=== PATIENT | female | born 1955 | race Caucasian/White ===

== ENCOUNTER → 2017-03-13 | Outpatient (CLI) | payer OTHER ==
[2017-03-13 13:30] LABS: BASOPHILS % (AUTO) 0.6 % (0.2-1.0); EOSINOPHILS % (AUTO) 0.8 % (0.9-2.9); HEMATOCRIT 38.1 % (36.0-47.0); HEMOGLOBIN 12.6 g/dL (12.0-16.0); LYMPHOCYTES # (AUTO) 1.3 X10^3/uL (1.3-2.9); LYMPHOCYTES % (AUTO) 21.3 % (21.0-51.0); MEAN CORPUSCULAR HEMOGLOBIN 29.7 pg (27.0-34.0); MEAN CORPUSCULAR HGB CONC 33.2 g/dL (33.0-35.0); MEAN CORPUSCULAR VOLUME 89.3 fL (80.0-100.0); MEAN PLATELET VOLUME 9.1 fL (7.4-11.0); MONOCYTES # (AUTO) 0.6 x10^3/uL (0.3-0.8); MONOCYTES % (AUTO) 9.8 % (0.0-13.0); NEUTROPHILS % (AUTO) 67.5 % (42.0-75.0); PLATELET COUNT 124 X10^3/uL (150.0-450.0); RED BLOOD COUNT 4.26 X10^6/uL (3.5-5.4); RED CELL DISTRIBUTION WIDTH 12.6 % (11.6-16.5); WHITE BLOOD COUNT 5.9 X10^3/uL (3.6-10.0)
[2017-03-13 14:23] LABS: ALANINE AMINOTRANSFERASE 64 Units/L (12-78); ALBUMIN 2.8 g/dL (3.4-5.0); ALKALINE PHOSPHATASE 127 Units/L (46-116); ASPARTATE AMINO TRANSFERASE 63 Units/L (15-37); BILIRUBIN,DIRECT 0.12 mg/dL (0-0.2); BLOOD UREA NITROGEN 22 mg/dL (7-18); CARBON DIOXIDE 31.8 mmol/L (21-32); CHLORIDE 100 mmol/L (98-107); COR NA(FOR HYPERGLY) 141 mmol/L (136-145); CREATININE 1.11 mg/dL (0.55-1.02); SODIUM 136 mmol/L (136-145); TOTAL PROTEIN 7.9 g/dL (6.4-8.2); eGFR BLACK RACES > 60 (>60); eGFR NON BLACK RACES 53 (>60)
== END ==
LOC: LAB 13:06
PROVIDERS: ATTEND Orthopaedic Surgery
DX: M51.27 Other intervertebral disc displacement, lumbosacral region (principal); M54.16 Radiculopathy, lumbar region
CPT/HCPCS: 36415; 80048; 80076; 85025

== ENCOUNTER 2020-03-12 09:18 | Inpatient (IN) ==
[2020-03-12 09:41] LABS: ABG BASE EXCESS -15.5 mmol/L (-2.0-2.0)
[2020-03-12 09:42] VITALS: BMI 48.6
[2020-03-12 09:42] LABS: ABG HCO3 12.1 mmol/L (22-26)
[2020-03-12 09:43] LABS: ABG ALLEN TEST POS
[2020-03-12] MEDS ORDERED: DECADRON INJ IVP ONE (09:43)
[2020-03-12] MEDS ORDERED: DECADRON INJ ONE (09:50)
[2020-03-12 10:00] LABS: BILIRUBIN,URINE NEGATIVE (NEGATIVE); BLOOD/HEMOGLOBIN,URINE 2+ (NEGATIVE); GLUCOSE, URINE NEGATIVE (NEGATIVE); KETONES,URINE NEGATIVE (NEGATIVE); LEUKOCYTE ESTERASE ,URINE NEGATIVE (NEGATIVE); NITRITES,URINE NEGATIVE (NEGATIVE); PROTEIN,URINE 4+ (NEGATIVE); UROBILINOGEN,URINE NORMAL (NORMAL)
[2020-03-12] MEDS ORDERED: NS 1000 ML 1,000 ML IV SCH (10:00)
[2020-03-12 10:02] LABS: BASOPHILS % (AUTO) 0.2 % (0.2-1.0); HEMATOCRIT 37.4 % (36.0-47.0); HEMOGLOBIN 11.9 g/dL (12.0-16.0); LYMPHOCYTES # (AUTO) 0.8 X10^3/uL (1.3-2.9); LYMPHOCYTES % (AUTO) 7.5 % (21.0-51.0); MEAN CORPUSCULAR HEMOGLOBIN 27.5 pg (27.0-34.0); MEAN CORPUSCULAR HGB CONC 31.8 g/dL (33.0-35.0); MEAN CORPUSCULAR VOLUME 86.6 fL (80.0-100.0); MEAN PLATELET VOLUME 9.1 fL (7.4-11.0); MONOCYTES # (AUTO) 0.7 x10^3/uL (0.3-0.8); MONOCYTES % (AUTO) 6.3 % (0.0-13.0); NEUTROPHILS # (AUTO) 9.2 x10^3/uL (2.2-4.8); PLATELET COUNT 181 X10^3/uL (150.0-450.0); RED BLOOD COUNT 4.32 X10^6/uL (3.5-5.4); RED CELL DISTRIBUTION WIDTH 15.7 % (11.6-16.5); WHITE BLOOD COUNT 10.7 X10^3/uL (3.6-10.0)
--- NOTE | 2020-03-12 10:07 | DR.GENAD ---
HPI Time Seen Time Seen by Provider: 03/12/20 09:43 PCP Primary Care Physician: ZOE HPI Comment HPI Comment: arrived via ems after being found unresponsive w sats 20s in field. gradually improved w NRB. unable to tolerate bipap per EMS. no pos covid test. obv resp distress. Complaint/Symptoms Chief Complaint Doctors Comments: ems arrival Chief Complaint:: PT. C/O SHORTNESS OF BREATH. EMS STATES UPON THEIR ARRIVAL, PT. WAS FOUND UNRESPONSIVE IN THE RECLINER. PT. NOTED TO HAVE SHALLOW RESPIRATIONS WITH DIMINISHED BREATH SOUNDS WELL WHEEZING. INITIAL O2 SAT WAS IN THE 20'S PER EMS. PT. WAS COLD TO TOUCH AND CLAMMY. PT. WAS PLACED ON NRB @ 100%. EN ROUTE TO THE ER, PT. BECAME MORE ALERT. O2 SAT UPON ARRIVAL TO THE ER WAS 56% ON NRB @ 100%. PT. STATES SHE BECAME SICK ON THURSDAY WITH SOB. SYMTPOMS HAVE WORSENED. COVID-19 Coronavirus risk:travel/contact w/high risk person: No Has patient experienced Coronavirus symptoms: Yes Coronavirus symptoms experienced: Shortness of Breath Nurses notes reviewed Nurses Notes Review: Yes Source History Provided: Patient and EMS Mode of Arrival Mode of Arrival: EMS Timing Onset of Chief Complaint: 03/08/20 Came on: Gradually Duration Duration: Constant Duration: Days PMH PMH Past Medical History: Yes Past Medical History: Diabetes Past Surgical History: Yes Surgical History: Unknown Family History History of Family Medical Conditions: Yes Family Medical History: Diabetes Mellitus Social History Does patient currently use any type of tobacco product: No Have you used tobacco products in the last 12 months: No Type of Tobacco Use: None Does any household member use tobacco: No Alcohol Use: None Do you use any recreational Drugs:: No Lives With: Spouse Lives Where: Home Travel Risk Coronavirus risk:travel/contact w/high risk person: No Has patient experienced Coronavirus symptoms: Yes Coronavirus symptoms experienced: Shortness of Breath Infectious screening In the last 2 months have you had wt loss of >10#?: NO Have you had fever, night sweats or hemotysis?: No Have you traveled outside the country in the last 6 months?: No Isolation: Droplet ROS Review of Systems Constitutional: Other (unable due to severity) PE Vital Signs Vitals: Temperature 98.6 F Pulse Rate 72 Respiratory Rate 21 Blood Pressure 149/82 O2 Sat by Pulse Oximetry 90 General Limitations: Altered Mental Status General Appearance: Lethargic, Obtunded and In Distress (mod- severe) Head Head Exam: Normal Inspection Eyes Eye exam: Normal Appearance ENT ENT Exam: Normal Exam and Mucous Membranes Dry External Ear Exam: Normal External Inspection Nose Exam: Normal Nose Exam Mouth Exam: Normal Inspection Throat Exam: Normal Inspection Neck Neck Exam: Normal Inspection Respiratory Respiratory Exam: Normal Lung Sounds Bilat Cardiovascular Cardiovascular Exam: Normal Rhythm, Tachycardia and Normal Heart Sounds Abdominal Exam Abdominal Exam: Normal Inspection, Normal Bowel Sounds and Soft; negative Distention, Tenderness, Guarding and Dimnished Bowel Sounds Extremities Extremities Exam: Normal Inspection Back Back Exam: Normal Inspection Neurologic Neurological Exam: negative Alert, Oriented X3 and Motor Sensory Deficit Skin Skin Exam: Warm and Dry COURSE Treatment Treatment: decadron in ED> aggressive resp interventions w finally Bipap in ED. Consultation Consultation Comments: arranged admit to Dr Rain. concerned re poor prognosis ROR Labs Reviewed Result Diagrams: 03/12/20 09:45 03/12/20 09:45 Laboratory: WBC 10.7 X10^3/uL (3.6-10.0) H 03/12/20 09:45 RBC 4.32 X10^6/uL (3.5-5.4) 03/12/20 09:45 Hgb 11.9 g/dL (12.0-16.0) L 03/12/20 09:45 Hct 37.4 % (36.0-47.0) 03/12/20 09:45 MCV 86.6 fL (80.0-100.0) 03/12/20 09:45 MCH 27.5 pg (27.0-34.0) 03/12/20 09:45 MCHC 31.8 g/dL (33.0-35.0) L 03/12/20 09:45 RDW 15.7 % (11.6-16.5) 03/12/20 09:45 Plt Count 181 X10^3/uL (150.0-450.0) 03/12/20 09:45 MPV 9.1 fL (7.4-11.0) 03/12/20 09:45 Neut % (Auto) 86.0 % (42.0-75.0) H 03/12/20 09:45 Lymph % (Auto) 7.5 % (21.0-51.0) L 03/12/20 09:45 [place] % (Auto) 6.3 % (0.0-13.0) 03/12/20 09:45 Eos % (Auto) 0.0 % (0.9-2.9) L 03/12/20 09:45 Baso % (Auto) 0.2 % (0.2-1.0) 03/12/20 09:45 Neut # (Auto) 9.2 x10^3/uL (2.2-4.8) H 03/12/20 09:45 Lymph # (Auto) 0.8 X10^3/uL (1.3-2.9) L 03/12/20 09:45 [place] # (Auto) 0.7 x10^3/uL (0.3-0.8) 03/12/20 09:45 Eos # (Auto) 0.0 x10^3/uL (0.0-0.2) 03/12/20 09:45 Baso # (Auto) 0.0 X10^3/uL (0.0-0.1) 03/12/20 09:45 Absolute Nucleated RBC 0.1 /100WBC 03/12/20 09:45 ESR 89 MM/HOUR (0-20) H 03/12/20 09:45 PT 12.5 SECONDS (11.8-14.3) 03/12/20 09:45 INR Target Range - 03/12/20 09:45 INR 0.96 (0.8-1.3) 03/12/20 09:45 APTT 27.8 SECONDS (22.9-36.5) 03/12/20 09:45 PTT Comment - 03/12/20 09:45 D-Dimer 1.84 ug/ml (0.0-0.57) H* 03/12/20 09:45 Sample Site Rrad 03/12/20 09:35 ABG pH 7.160 (7.35-7.45) L* 03/12/20 09:35 ABG pCO2 34.0 mmHg (35.0-45.0) L 03/12/20 09:35 ABG pO2 41.0 mmHg (80.0-100.0) L* 03/12/20 09:35 ABG HCO3 12.1 mmol/L (22-26) L* 03/12/20 09:35 ABG O2 Saturation 60.0 % (90-100) L* 03/12/20 09:35 ABG Base Excess -15.5 mmol/L (-2.0-2.0) L 03/12/20 09:35 Red Test Pos 03/12/20 09:35 A-a Gradient 630.0 mmHg 03/12/20 09:35 FiO2 100.0 03/12/20 09:35 Blood Gas Comments Pt [facility] 03/12/20 09:35 Sodium 132 mmol/L (136-145) L 03/12/20 09:45 Corrected Sodium 136 mmol/L (136-145) 03/12/20 09:45 Potassium 7.1 mmol/L (3.5-5.1) H* 03/12/20 09:45 Chloride 102 mmol/L (98-107) 03/12/20 09:45 Carbon Dioxide 15.8 mmol/L (21-32) L 03/12/20 09:45 BUN 57 mg/dL (7-18) H 03/12/20 09:45 Creatinine 2.12 mg/dL (0.55-1.02) H 03/12/20 09:45 Est GFR (MDRD) Af Amer 30 (>60) L 03/12/20 09:45 Est GFR (MDRD) Non-Af 25 (>60) L 03/12/20 09:45 Glucose 274 mg/dL (65-99) H 03/12/20 09:45 Lactic Acid 7.9 mmol/L (0.4-2.0) H 03/12/20 09:45 Calcium 8.7 mg/dL (8.5-10.1) 03/12/20 09:45 Corrected Calcium 10.3 mg/dL (8.5-10.1) H 03/12/20 09:45 Total Bilirubin 0.20 mg/dL (0.2-1.0) 03/12/20 09:45 AST 139 Units/L (15-37) H 03/12/20 09:45 ALT 55 Units/L (12-78) 03/12/20 09:45 Alkaline Phosphatase 234 Units/L (46-116) H 03/12/20 09:45 Troponin I 0.05 ng/mL (0-1.5) 03/12/20 09:45 C-Reactive Protein 72.70 mg/L (0-3.0) H 03/12/20 09:45 Total Protein 7.8 g/dL (6.4-8.2) 03/12/20 09:45 Albumin 2.0 g/dL (3.4-5.0) L 03/12/20 09:45 Globulin 5.8 g/dL (2.5-4.5) H 03/12/20 09:45 Albumin/Globulin Ratio 0.3 Ratio (1.1-2.1) L 03/12/20 09:45 Specimen Type Clean catch urine 03/12/20 09:45 Urine Color Yellow (YELLOW) 03/12/20 09:45 Urine Appearance Slightly hazy (CLEAR) 03/12/20 09:45 Urine pH 5.0 (5.0 - 8.0) 03/12/20 09:45 Ur Specific [place] 1.025 (1.000-1.030) 03/12/20 09:45 Urine Protein 4+ (NEGATIVE) 03/12/20 09:45 Urine Glucose (UA) Negative (NEGATIVE) 03/12/20 09:45 Urine Ketones Negative (NEGATIVE) 03/12/20 09:45 Urine Occult Blood 2+ (NEGATIVE) 03/12/20 09:45 Urine Nitrite Negative (NEGATIVE) 03/12/20 09:45 Urine Bilirubin Negative (NEGATIVE) 03/12/20 09:45 Urine Urobilinogen Normal (NORMAL) 03/12/20 09:45 Ur Leukocyte Esterase Negative (NEGATIVE) 03/12/20 09:45 Urine RBC 3-5 /HPF (0-3) A 03/12/20 09:45 Urine WBC 0-2 /HPF (0-5) 03/12/20 09:45 Ur Squamous Epith Cells Few /HPF (NEGATIVE) 03/12/20 09:45 Amorphous Sediment Trace /HPF (NEGATIVE) 03/12/20 09:45 Urine Bacteria Trace /HPF (NEGATIVE) 03/12/20 09:45 Hyaline Casts Few /LPF (NEGATIVE) 03/12/20 09:45 Ur Culture Indicated? No/not indicated 03/12/20 09:45 SARS CoV-2 RNA Rapid FRANCISCO JAVIER Positive (NEGATIVE) A 03/12/20 10:23 Opioid Opioid Risk Tool Age ([place] box if 16-45): No History of Preadolescent Sexual Abuse: No Total: 0 Total Score Risk Category: Low Risk Copyright: Angel PARIKH predicting aberrant behaviors Diagnosis Discharge Problem: COVID-19, Acute respiratory distress
[2020-03-12 10:17] LABS: CALCIUM 8.7 mg/dL (8.5-10.1); CARBON DIOXIDE 15.8 mmol/L (21-32); COR CA(FOR HYPOALB) 10.3 mg/dL (8.5-10.1); CREATININE 2.12 mg/dL (0.55-1.02); TOTAL PROTEIN 7.8 g/dL (6.4-8.2); TROPONIN I 0.05 ng/mL (0-1.5)
[2020-03-12] MEDS ORDERED: PROVENTIL NEB TX 0.083% 2.5MG/ 3ML ONE (10:28)
[2020-03-12 10:35] LABS: APPEARANCE,URINE SLIGHTLY HAZY (CLEAR); COLOR,URINE YELLOW (YELLOW)
[2020-03-12] MEDS ORDERED: PROVENTIL NEB TX 0.083% 2.5MG/ 3ML NEB ONE (10:35)
[2020-03-12 10:36] LABS: AMORPHOUS SEDIMENT,UR TRACE /HPF (NEGATIVE); BACTERIA,URINE TRACE /HPF (NEGATIVE); HYALINE CASTS, URINE FEW /LPF (NEGATIVE); SQUAMOUS EPITHELIAL CELL,UR FEW /HPF (NEGATIVE)
[2020-03-12] MEDS ORDERED: HEPARIN SODIUM IN D5W 25,000 UNITS/500 ML BAG IV PRN (10:37)
[2020-03-12] MEDS ORDERED: D50W ABBOJECT SYR IV ONE (10:45)
[2020-03-12] MEDS ORDERED: HumuLIN R IV PRN (10:45)
[2020-03-12] MEDS ORDERED: CALCIUM GLUCONATE 10% IV ONE ×2 (10:45→10:54)
[2020-03-12] MEDS ORDERED: VENTOLIN or PROAIR HFA IN ONE (10:45)
[2020-03-12] MEDS ORDERED: HEPARIN SODIUM INJ 5000 UNITS IVP ONE (10:47)
[2020-03-12 10:52] LABS: ERYTHROCYTE SEDIMENTATION RATE 89 MM/HOUR (0-20)
[2020-03-12] MEDS ORDERED: D50W ABBOJECT SYR ONE (10:54)
[2020-03-12] MEDS ORDERED: HEPARIN SODIUM IN D5W 25,000 UNITS/500 ML BAG IV ONE (10:54)
[2020-03-12] MEDS ORDERED: HEPARIN SODIUM INJ 5000 UNITS ONE (10:54)
[2020-03-12] MEDS ORDERED: HumuLIN R ONE (10:55)
--- NOTE | 2020-03-12 11:31 | RAD ---
HISTORYSOBSTUDYCHEST, 1 VIEWCOMPARISONNoneFINDINGSThe trachea is midline. There is extensive alveolar and ground-glass radiopacities with confluent zones involving left midlung zone as well as the left lower lobe and in the right upper lobe and patchy in the right lower lobe. There is no effusion or pneumothorax.IMPRESSIONExtensive confluent alveolar and ground-glass radiopacities suspicious for atypical pneumonia, covid type pneumonia.Electronically signed by: Melodie Vivar (Mar 12, 2020 11:29:40)
[2020-03-12] MEDS ORDERED: ATIVAN INJ 2 MG VIAL IVP ONE (11:43)
[2020-03-12] MEDS ORDERED: ATIVAN INJ 2 MG VIAL ONE (11:44)
[2020-03-12] MEDS: PULMICORT NEB TX 0.5 MG NEB SCH ×2 (15:14→20:30)
[2020-03-12] MEDS ORDERED: REMDESIVIR 200 MG in NS 250 ML IV 250 ML IV ONE (15:48)
[2020-03-12] MEDS ORDERED: MILK OF MAGNESIA PO PRN (15:48)
[2020-03-12 16:55] LABS: CKMB % 2.8 % (<4); CREATINE KINASE MB 1.6 ng/mL (0-4.0); TROPONIN I 0.18 ng/mL (0-1.5)
[2020-03-12] MEDS ORDERED: IVERMECTIN PO SCH (17:00)
[2020-03-12] MEDS ORDERED: PEPCID TAB 20 MG ONE ×2 (17:04→20:48)
[2020-03-12] MEDS ORDERED: ZyrTEC TAB 10 MG ONE (17:04)
[2020-03-12] MEDS ORDERED: PROTONIX TAB 40 MG PO ONE (17:04)
[2020-03-12] MEDS ORDERED: IVERMECTIN ONE (17:04)
[2020-03-12] MEDS ORDERED: REMDESIVIR IV ONE (17:05)
[2020-03-12] MEDS ORDERED: ZINC SULFATE ONE (17:05)
[2020-03-12] MEDS ORDERED: SOLU-Medrol 125 MG VIAL ONE ×2 (17:05→20:48)
[2020-03-12] MEDS ORDERED: TESSALON PERLES PO ONE ×2 (17:05→20:49)
[2020-03-12] MEDS ORDERED: LEVAQUIN PREMIX IV 750 MG 750 MG/150 ML BAG IV ONE (17:06)
[2020-03-12] MEDS ORDERED: ROBITUSSIN DM ONE ×2 (17:06→20:49)
[2020-03-12] MEDS ORDERED: NS 250 ML IV 250 ML IV ONE (17:06)
[2020-03-12] MEDS ORDERED: ASCORBIC ACID INJ MULTI-DOSE VIAL IV ONE (17:07)
[2020-03-12] MEDS: ASCORBIC ACID INJ MULTI-DOSE VIAL 1,500 MG in NS 50 ML IV 50 ML IV SCH ×2 (17:08→21:23)
[2020-03-12] MEDS: PEPCID TAB 20 MG PO SCH ×2 (17:09→21:24)
[2020-03-12] MEDS: DIFLUCAN PO SCH (17:09)
[2020-03-12] MEDS: PROTONIX TAB 40 MG PO SCH (17:09)
[2020-03-12] MEDS: SOLU-Medrol 125 MG VIAL IVP SCH ×2 (17:09→21:23)
[2020-03-12] MEDS: ZINC SULFATE PO SCH (17:10)
[2020-03-12] MEDS: TESSALON PERLES PO SCH ×2 (17:10→21:23)
[2020-03-12] MEDS: ZyrTEC TAB 10 MG PO SCH (17:10)
[2020-03-12] MEDS: VITAMIN D3 125 mcg (5,000 UNITS) PO SCH (17:10)
[2020-03-12] MEDS: LEVAQUIN PREMIX IV 750 MG 750 MG/150 ML BAG IV SCH (17:11)
[2020-03-12] MEDS: REMDESIVIR 100 MG in NS 250 ML IV 250 ML IV SCH (17:11)
[2020-03-12] MEDS: ROBITUSSIN DM PO SCH ×2 (17:12→21:25)
[2020-03-12] MEDS: ACCUNEB 1.25 MG NEBULE NEB SCH ×2 (17:14→20:30)
[2020-03-12] MEDS ORDERED: NS 50 ML IV 50 ML IV ONE ×2 (17:17→20:50)
[2020-03-12] MEDS: MUCOMYST 20% 200 MG/ML NEB SCH ×2 (18:16→20:30)
[2020-03-12] MEDS: MAGIC MOUTHWASH MT SCH ×2 (18:53→21:25)
[2020-03-12] MEDS ORDERED: SNACK - Diabetic Appropriate PO SCH (20:00)
[2020-03-12] MEDS ORDERED: LOVENOX INJ 120 MG SYR SC ONE (20:48)
[2020-03-12] MEDS ORDERED: THIAMINE HCL INJ ONE (20:48)
[2020-03-12] MEDS ORDERED: FORTAZ or TAZICEF VIAL INJ ONE (20:49)
[2020-03-12] MEDS ORDERED: NS 100 ML IV + SPIKE MINIBAG* 100 ML IV ONE (20:49)
[2020-03-12] MEDS ORDERED: VISTARIL PO ONE (20:49)
[2020-03-12] MEDS ORDERED: LIPITOR TAB 80 MG ONE (20:49)
[2020-03-12] MEDS: FORTAZ or TAZICEF VIAL INJ 1 G in NS 100 ML IV + SPIKE MINIBAG* 100 ML IV SCH ×2 (21:22→21:27)
[2020-03-12] MEDS: THIAMINE HCL INJ IVP SCH (21:24)
[2020-03-12] MEDS: SINGULAIR TAB 10 MG PO SCH (21:24)
[2020-03-12] MEDS: MELATONIN PO SCH (21:25)
[2020-03-12] MEDS: LIPITOR TAB 80 MG PO SCH (21:26)
[2020-03-12] MEDS: COLACE CAP 100 MG PO SCH (21:26)
[2020-03-12] MEDS: VISTARIL PO PRN (21:26)
[2020-03-12] MEDS: LOVENOX INJ 120 MG SYR SC SCH (21:27)
[2020-03-13] MEDS ORDERED: NORMODYNE INJ 20 MG VIAL ONE ×3 (00:27→23:35)
[2020-03-13] MEDS: NORMODYNE INJ 20 MG VIAL IVP PRN ×3 (00:38→23:46)
[2020-03-13] MEDS ORDERED: SOLU-Medrol 125 MG VIAL ONE ×4 (02:15→23:02)
[2020-03-13] MEDS ORDERED: NS 50 ML IV 50 ML IV ONE ×2 (02:15→23:04)
[2020-03-13] MEDS: ASCORBIC ACID INJ MULTI-DOSE VIAL 1,500 MG in NS 50 ML IV 50 ML IV SCH ×4 (02:20→23:26)
[2020-03-13] MEDS: SOLU-Medrol 125 MG VIAL IVP SCH ×4 (03:48→23:29)
[2020-03-13 04:36] LABS: ABG ALLEN TEST POS; ABG BASE EXCESS -4.8 mmol/L (-2.0-2.0); ABG HCO3 20.5 mmol/L (22-26)
[2020-03-13] MEDS: TESSALON PERLES PO SCH ×3 (05:05→23:29)
[2020-03-13] MEDS ORDERED: TESSALON PERLES PO ONE ×3 (05:07→23:06)
--- NOTE | 2020-03-13 06:16 | RAD ---
HISTORYSOBSTUDYCHEST, 1 VIEWCOMPARISONOne day prior.TECHNIQUEAP view of the chestFINDINGSThe cardiac and mediastinal contours appear stable. No significant change in bilateral airspace and interstitial opacities. No definite pleural effusion or pneumothorax. Left costophrenic sulcus is outside of the field of view. Soft tissue attenuation limits evaluation.IMPRESSIONNo significant change.Electronically signed by: Petey Pedroza (Mar 13, 2020 06:14:00)
[2020-03-13 07:04] LABS: BASOPHILS % (AUTO) 0.2 % (0.2-1.0); HEMOGLOBIN 10.7 g/dL (12.0-16.0); LYMPHOCYTES # (AUTO) 0.2 X10^3/uL (1.3-2.9); LYMPHOCYTES % (AUTO) 4.6 % (21.0-51.0); MEAN CORPUSCULAR HEMOGLOBIN 28.3 pg (27.0-34.0); MEAN CORPUSCULAR HGB CONC 33.5 g/dL (33.0-35.0); MEAN CORPUSCULAR VOLUME 84.5 fL (80.0-100.0); MEAN PLATELET VOLUME 8.7 fL (7.4-11.0); MONOCYTES # (AUTO) 0.2 x10^3/uL (0.3-0.8); NEUTROPHILS # (AUTO) 4.9 x10^3/uL (2.2-4.8); NEUTROPHILS % (AUTO) 91.2 % (42.0-75.0); PLATELET COUNT 106 X10^3/uL (150.0-450.0); RED BLOOD COUNT 3.79 X10^6/uL (3.5-5.4); RED CELL DISTRIBUTION WIDTH 14.7 % (11.6-16.5); WHITE BLOOD COUNT 5.4 X10^3/uL (3.6-10.0)
[2020-03-13 07:06] LABS: ALBUMIN 1.7 g/dL (3.4-5.0); CALCIUM 8.6 mg/dL (8.5-10.1); CARBON DIOXIDE 20.4 mmol/L (21-32); COR CA(FOR HYPOALB) 10.4 mg/dL (8.5-10.1); CREATININE 1.71 mg/dL (0.55-1.02); TOTAL PROTEIN 6.8 g/dL (6.4-8.2)
[2020-03-13] MEDS ORDERED: ZyrTEC TAB 10 MG ONE (08:00)
[2020-03-13] MEDS ORDERED: THIAMINE HCL INJ ONE ×2 (08:00→23:02)
[2020-03-13] MEDS ORDERED: ZINC SULFATE ONE (08:00)
[2020-03-13] MEDS ORDERED: LOVENOX INJ 120 MG SYR SC ONE ×2 (08:00→23:02)
[2020-03-13] MEDS ORDERED: PEPCID TAB 20 MG ONE ×2 (08:00→23:02)
[2020-03-13] MEDS ORDERED: PROTONIX TAB 40 MG PO ONE (08:00)
[2020-03-13] MEDS ORDERED: NS 250 ML IV 250 ML IV ONE (08:01)
[2020-03-13] MEDS ORDERED: ROBITUSSIN DM ONE ×2 (08:01→13:52)
[2020-03-13] MEDS ORDERED: NS 100 ML IV + SPIKE MINIBAG* 100 ML IV ONE ×2 (08:01→23:04)
[2020-03-13] MEDS ORDERED: FORTAZ or TAZICEF VIAL INJ ONE ×2 (08:01→23:04)
[2020-03-13] MEDS ORDERED: REMDESIVIR IV ONE (08:01)
[2020-03-13 08:10] LABS: BAND NEUTROPHILS % 5 % (0-10); PLATELET MORPHOLOGY COMMENT NORMAL (NORMAL)
[2020-03-13] MEDS: COLACE CAP 100 MG PO SCH (08:59)
[2020-03-13] MEDS: ZINC SULFATE PO SCH (09:00)
[2020-03-13] MEDS: ZyrTEC TAB 10 MG PO SCH (09:00)
[2020-03-13] MEDS: VITAMIN D3 125 mcg (5,000 UNITS) PO SCH (09:00)
[2020-03-13] MEDS: THIAMINE HCL INJ IVP SCH ×2 (09:01→23:29)
[2020-03-13] MEDS: PEPCID TAB 20 MG PO SCH ×2 (09:02→23:28)
[2020-03-13] MEDS: PROTONIX TAB 40 MG PO SCH (09:02)
[2020-03-13] MEDS: ROBITUSSIN DM PO SCH ×4 (09:02→23:45)
[2020-03-13] MEDS: REMDESIVIR 100 MG in NS 250 ML IV 250 ML IV SCH (09:02)
[2020-03-13] MEDS: MELATONIN PO SCH ×2 (09:03→23:28)
[2020-03-13] MEDS: MAGIC MOUTHWASH MT SCH ×4 (09:07→23:28)
[2020-03-13] MEDS: FORTAZ or TAZICEF VIAL INJ 1 G in NS 100 ML IV + SPIKE MINIBAG* 100 ML IV SCH ×2 (09:07→23:26)
[2020-03-13] MEDS: MUCOMYST 20% 200 MG/ML NEB SCH ×4 (09:08→20:15)
[2020-03-13] MEDS: PULMICORT NEB TX 0.5 MG NEB SCH ×2 (09:08→20:15)
[2020-03-13] MEDS: DIFLUCAN PO SCH (09:08)
[2020-03-13] MEDS: ACCUNEB 1.25 MG NEBULE NEB SCH ×4 (09:08→20:15)
[2020-03-13] MEDS: LOVENOX INJ 120 MG SYR SC SCH ×2 (09:08→23:27)
[2020-03-13] MEDS ORDERED: NS 1000 ML 1,000 ML IV ONE (10:12)
[2020-03-13] MEDS: CATAPRES-TTS-2 TD SCH (10:57)
[2020-03-13] MEDS ORDERED: NS 100 ML IV 100 ML IV ONE ×2 (11:03→13:52)
[2020-03-13] MEDS ORDERED: VISTARIL PO ONE ×2 (11:19→23:04)
[2020-03-13] MEDS: VISTARIL PO PRN ×2 (11:19→23:31)
--- NOTE | 2020-03-13 12:01 | DR.H&P ---
H&P - History & Physical for Day of: H&P Date: 03/13/20 - Chief Complaint Chief Complaint: UNRESPONSIVE, OXYGEN SATURATIONS IN THE 20s ON ROOM AIR, BEGAN WITH COUGH AND SOB ON 03/08/2020 - History of Present Illness History of Present Illness: IS A 64 YEAR OLD PATIENT OF OURS. SHE PRESENTED TO THE ER VIA EMS. EMS REPORTS THAT ON ARRIVAL TO SCENE, PATIENT WAS UNRESPONSIVE WITH OXYGEN SATURATIONS IN THE 20s. THEY REPORT PLACING HER ON THE NON-REBREATHER AT 100%. SHE WAS UNABLE TO TOLERATE THE BIPAP. HER OXYGEN SATURATIONS INCREASED TO 56% ON THE NRB. ON ARRIVAL TO THE ER, HER SKIN WAS COLD AND CLAMMY. AUSCULTATIONS OF LUNG CHAVEZ REVEALED SCATTERED RALES. SHE REPORTS THAT SYMPTOMS BEGAN ON THURSDAY AND HAVE PROGRESSIVELY GOTTEN WORSE. HER PMH INCLUDES DIABETES, DYSLIPIDEMIA, AND HTN. ON ARRIVAL, VITALS WERE 98.6-96-28-56%NRB-148/65. NASAL CANNULA AT 6LPM WAS ALSO APPLIED WITH THE NRB. SATS INCREASE TO 80%. LABS WERE OBTAINED. ABNORMAL LAB VALUES INCLUDE THE FOLLOWING: WBC 10.7, HGB 11.9, ESR 89, D-DIMER 1.84, SODIUM 132, POTASSIUM 7.1, CARBON DIOXIDE 15.8, BUN 57, CREATININE 2.12, GLUCOSE 274, LACTIC ACID 7.9, CORRECTED CALCIUM 10.3, AST 139, ALK PHOS 234, CRP 72.70, ALBUMIN 2.0, GLOBULIN 5.8. CARDIAC ENZYMES WITHIN NORMAL LIMITS. COVID-19 POSITIVE. AN ABG WAS OBTAINED AND REVEALED: PH 7.160, PC02 34, P02 41, HC03 12.1, 02 SAT 60, BASE EXCESS -15.5, A-A GRADIENT 630, FI02 100. BLOOD CULTURES WERE SET UP. A CHEST XR AY WAS OBTAINED AND REVEALED: Extensive confluent alveolar and ground-glass radiopacities suspicious for atypical pneumonia, covid type pneumonia. AN EKG WAS OBTAINED AND REVEALED SINUS RHYTHM WITH HR 91. WHILE IN THE ER, HER SATURATIONS REMAINED IN THE HIGH 70s. SHE WAS PLACED ON THE BIPAP AT 100% 16/4 RR OF 20. HER SATURATIONS INCREASED TO 92%. SHE WAS GIVEN DECADRON 6MG IV X 1, PROVENTIL NEB TX X 1, STARTED ON A HEPARIN DRIP, CALCIUM GLUCONATE 1G IV X 1, AN AMP OF D50, HUMULIN R 10 IV X 1, ATIVAN 1MG X 1. SHE WAS ADMITTED FOR FURTHER EVALUATION AND TREATMENT OF PNEUMONIA DUE TO COVID-19 AND HYPOXIA. SHE WAS STARTED ON NS AT 150 ML/HR, REMDESIVIR 100MG IV DAILY, FORTAZ 1G IV Q12H, LEVAQUIN 750MG IV Q48H, ALBUTEROL NEBS QID, MUCOMYST IN NEBS QID, PULMICORT NEBS BID, ASCORBIC ACID 1500MG IV Q6H, CLONIDINE 0.2MG/HR TD PATCH, LIPITOR 80MG PO HS, TESSALON PERLES 200MG PO TID, ZYRTEC 10MG PO DAILY, TUSSIONEX 5ML PO Q12H PRN, COLACE 100MG PO HS, LOVENOX BID, PEPCID 20MG PO BID, DIFLUCAN 100MG PO DAILY, ROBITUSSIN DM 10ML PO QID, IVERMECTIN- PHARMACY TO DOSSE, MAGIC MOUTHWASH QID, MILK OF MAG BID PRN, MELATONIN 10MG PO HS, SOLU-MEDROL 125MG IV Q6H, SINGULAIR 10MG PO HS, PROTONIX 40MG PO DAILY, THIAMIN 200MG IV BID, AND ZINC SULFATE 220MG PO DAILY. WE WILL OBTAIN AN ECHOCARDIOGRAM. OTHERWISE, WE WILL FOLLOW UP WITH AM LABS, CHEST XRAY, ABG, AND CONTINUE TO MONITOR. TIME SPENT ON CLINICAL ASSESSMENT, REVIEWING LABS AND IMAGING, DECISION MAKING, AND DOCUMENTATION GREATER THAN 75 MINUTES. - Past Medical History Past Medical History: Diabetes, Dyslipidemia, Hypertension - Past Surgical History Surgical History: Unknown - Family History Family Medical History: Diabetes Mellitus - Social History Does patient currently use any type of tobacco product: No Have you used tobacco products in the last 12 months: No Type of Tobacco Use: None Does any household member use tobacco: No Alcohol Use: None Drug Use: None - Medications Home Medications: No Known Drug Allergies Allergy (Verified 03/12/20 09:37) CONTINUE taking the following medications glipizide 10 mg PO BID 03/13/20 [History] hydrochlorothiazide 25 mg PO DAILY 03/13/20 [History] levothyroxine [Euthyrox] 100 mcg PO DAILY 03/13/20 [History] losartan 100 mg PO DAILY 03/13/20 [History] metformin 1,000 mg PO BID 03/13/20 [History] nifedipine 30 mg PO HS 03/13/20 [History] pravastatin 20 mg PO HS 03/13/20 [History] sertraline 50 mg PO HS 03/13/20 [History] triamcinolone acetonide 1 applic TOPICAL BID 03/13/20 [History] - Review of Systems Constitutional: Fever, Weakness Eyes: No Symptoms Reported ENT: No Symptoms Reported Respiratory: See HPI, Cough, Shortness of Breath Cardiovascular: No Symptoms Reported Gastrointestinal: No Symptoms Reported Genitourinary: No Symptoms Reported Musculoskeletal: No Symptoms Reported Skin: No Symptoms Reported Neurological: Weakness - Physical Exam Vital Signs: Temperature 97.7 F Pulse Rate [Apical] 74 Pulse Rate 75 Respiratory Rate 22 Blood Pressure [Right Arm] 167/72 Blood Pressure 166/84 O2 Sat by Pulse Oximetry 100 Oriented: Unable to test Eyes: Normal Ear: Normal Nose: Normal Throat: Normal Respiratory: Rales Throughout Cardiovascular: Normal : Normal Auscultation: Bowel Sounds: Normal Palpation: Normal Tenderness: Normal Skin: Normal Musculoskeletal: Normal Psychiatric: Other (UNABLE TO TEST ) Mood Description: Flat Affect: Normal - Assessment/Plan (1) Pneumonia due to COVID-19 virus Status: Acute Plan: ADMIT, BIPAP, NS AT 150 ML/HR, REMDESIVIR 100MG IV DAILY, FORTAZ 1G IV Q12H, LEVAQUIN 750MG IV Q48H, ALBUTEROL NEBS QID, MUCOMYST IN NEBS QID, PULMICORT NEBS BID, ASCORBIC ACID 1500MG IV Q6H, CLONIDINE 0.2MG/HR TD PATCH, LIPITOR 80MG PO HS, TESSALON PERLES 200MG PO TID, ZYRTEC 10MG PO DAILY, TUSSIONEX 5ML PO Q12H PRN, COLACE 100MG PO HS, LOVENOX BID, PEPCID 20MG PO BID, DIFLUCAN 100MG PO DAILY, ROBITUSSIN DM 10ML PO QID, IVERMECTIN- PHARMACY TO DOSE, MAGIC MOUTHWASH QID, MILK OF MAG BID PRN, MELATONIN 10MG PO HS, SOLU- MEDROL 125MG IV Q6H, SINGULAIR 10MG PO HS, PROTONIX 40MG PO DAILY, THIAMINE 200MG IV BID, AND ZINC SULFATE 220MG PO DAILY (2) Hypoxia Status: Acute (3) Acute respiratory failure Qualifiers: Respiratory failure complication: hypoxia Qualified Code(s): J96.01 - Acute respiratory failure with hypoxia Status: Acute - Allergies Allergies/Adverse Reactions: Allergies Allergy/AdvReac Type Severity Reaction Status Date / Time No Known Drug Allergies Allergy Verified 03/12/20 09:37
[2020-03-13] MEDS ORDERED: NS 1000 ML 1,000 ML ONE ×2 (12:55→20:23)
[2020-03-13] MEDS: NS 1000 ML 1,000 ML IV SCH ×2 (13:32→20:25)
[2020-03-13] MEDS: THEO-24 CAP 200 MG (24-HR) PO SCH ×2 (14:27→23:29)
[2020-03-13] MEDS ORDERED: LIPITOR TAB 80 MG ONE (23:03)
[2020-03-13] MEDS ORDERED: TUSSIONEX PENNKINETIC SUSP ONE (23:03)
[2020-03-13] MEDS ORDERED: ASCORBIC ACID INJ MULTI-DOSE VIAL IV ONE (23:05)
[2020-03-13] MEDS: LIPITOR TAB 80 MG PO SCH (23:27)
[2020-03-13] MEDS: SINGULAIR TAB 10 MG PO SCH (23:28)
[2020-03-13] MEDS: TUSSIONEX PENNKINETIC SUSP PO PRN (23:30)
[2020-03-14] MEDS ORDERED: ULTRAM PO ONE (02:04)
[2020-03-14] MEDS ORDERED: ZOFRAN INJ 4 MG VIAL ONE ×2 (02:08→11:09)
[2020-03-14] MEDS ORDERED: ULTRAM ONE ×2 (02:08→11:09)
[2020-03-14] MEDS ORDERED: NORMODYNE INJ 20 MG VIAL ONE ×2 (02:19→05:48)
[2020-03-14] MEDS: NORMODYNE INJ 20 MG VIAL IVP PRN ×4 (02:22→15:30)
[2020-03-14] MEDS: ZOFRAN INJ 4 MG VIAL IVP PRN ×3 (02:34→18:00)
[2020-03-14] MEDS ORDERED: NS 100 ML IV 100 ML IV ONE (02:59)
[2020-03-14] MEDS ORDERED: ASCORBIC ACID INJ MULTI-DOSE VIAL IV ONE ×2 (03:01→08:21)
[2020-03-14] MEDS: ASCORBIC ACID INJ MULTI-DOSE VIAL 1,500 MG in NS 50 ML IV 50 ML IV SCH ×3 (03:05→14:00)
[2020-03-14] MEDS ORDERED: TESSALON PERLES PO ONE (03:57)
[2020-03-14] MEDS ORDERED: SOLU-Medrol 125 MG VIAL ONE (04:15)
[2020-03-14] MEDS: SOLU-Medrol 125 MG VIAL IVP SCH ×3 (04:25→15:00)
[2020-03-14 04:52] LABS: ABG BASE EXCESS -3.7 mmol/L (-2.0-2.0); ABG HCO3 20.6 mmol/L (22-26)
[2020-03-14] MEDS ORDERED: TYLENOL 325 MG TAB PO ONE ×2 (04:52→08:22)
[2020-03-14 04:54] LABS: ABG ALLEN TEST POS
[2020-03-14] MEDS: TYLENOL 325 MG TAB PO ONE ×2 (05:01→08:49)
[2020-03-14] MEDS: TESSALON PERLES PO SCH ×2 (05:17→14:00)
[2020-03-14] MEDS: NS 1000 ML 1,000 ML IV SCH ×2 (05:42→14:01)
--- NOTE | 2020-03-14 06:08 | RAD ---
HISTORYShortness of breathSTUDYChest AP [id number] heart is mildly enlarged. No congestive heart failure is noted. The jayshree are normal. Bilateral interstitial and patchy alveolar infiltrates are again identified not significantly different in degree or distribution from the prior examination. No pleural effusions are identified. Bony thorax is unremarkable.IMPRESSIONNo change bilateral interstitial and patchy alveolar infiltrates when compared to the prior examinationElectronically signed by: YAKELIN DAMIAN (Mar 14, 2020 06:06:40)
[2020-03-14 07:34] LABS: BASOPHILS % (AUTO) 0.1 % (0.2-1.0); HEMATOCRIT 33.1 % (36.0-47.0); HEMOGLOBIN 10.8 g/dL (12.0-16.0); LYMPHOCYTES # (AUTO) 0.1 X10^3/uL (1.3-2.9); LYMPHOCYTES % (AUTO) 2.1 % (21.0-51.0); MEAN CORPUSCULAR HEMOGLOBIN 27.4 pg (27.0-34.0); MEAN CORPUSCULAR HGB CONC 32.6 g/dL (33.0-35.0); MEAN CORPUSCULAR VOLUME 84.1 fL (80.0-100.0); MEAN PLATELET VOLUME 8.3 fL (7.4-11.0); MONOCYTES # (AUTO) 0.3 x10^3/uL (0.3-0.8); MONOCYTES % (AUTO) 5.6 % (0.0-13.0); NEUTROPHILS # (AUTO) 5.3 x10^3/uL (2.2-4.8); NEUTROPHILS % (AUTO) 92.2 % (42.0-75.0); PLATELET COUNT 108 X10^3/uL (150.0-450.0); RED BLOOD COUNT 3.93 X10^6/uL (3.5-5.4); RED CELL DISTRIBUTION WIDTH 14.8 % (11.6-16.5); WHITE BLOOD COUNT 5.8 X10^3/uL (3.6-10.0)
[2020-03-14 07:55] LABS: ALBUMIN 1.6 g/dL (3.4-5.0); CALCIUM 8.1 mg/dL (8.5-10.1); CARBON DIOXIDE 19.5 mmol/L (21-32); CREATININE 1.44 mg/dL (0.55-1.02); TOTAL PROTEIN 6.6 g/dL (6.4-8.2)
[2020-03-14 08:13] LABS: PLATELET MORPHOLOGY COMMENT NORMAL (NORMAL)
[2020-03-14] MEDS ORDERED: PEPCID TAB 20 MG ONE (08:20)
[2020-03-14] MEDS ORDERED: ZyrTEC TAB 10 MG ONE (08:20)
[2020-03-14] MEDS ORDERED: ZINC SULFATE ONE (08:20)
[2020-03-14] MEDS ORDERED: PROTONIX TAB 40 MG PO ONE (08:20)
[2020-03-14] MEDS ORDERED: THIAMINE HCL INJ ONE (08:20)
[2020-03-14] MEDS ORDERED: LOVENOX INJ 120 MG SYR SC ONE (08:20)
[2020-03-14] MEDS ORDERED: NS 100 ML IV + SPIKE MINIBAG* 100 ML IV ONE (08:21)
[2020-03-14] MEDS ORDERED: FORTAZ or TAZICEF VIAL INJ ONE (08:21)
[2020-03-14] MEDS ORDERED: NS 250 ML IV 250 ML IV ONE (08:21)
[2020-03-14] MEDS ORDERED: REMDESIVIR IV ONE (08:21)
[2020-03-14] MEDS ORDERED: NS 50 ML IV 50 ML IV ONE (08:21)
[2020-03-14] MEDS: ZINC SULFATE PO SCH (08:36)
[2020-03-14] MEDS: ZyrTEC TAB 10 MG PO SCH (08:37)
[2020-03-14] MEDS: THIAMINE HCL INJ IVP SCH (08:37)
[2020-03-14] MEDS: VITAMIN D3 125 mcg (5,000 UNITS) PO SCH (08:37)
[2020-03-14] MEDS: THEO-24 CAP 200 MG (24-HR) PO SCH (08:43)
[2020-03-14] MEDS: ROBITUSSIN DM PO SCH ×3 (08:43→19:20)
[2020-03-14] MEDS: REMDESIVIR 100 MG in NS 250 ML IV 250 ML IV SCH (08:43)
[2020-03-14] MEDS: MELATONIN PO SCH (08:44)
[2020-03-14] MEDS: PROTONIX TAB 40 MG PO SCH (08:44)
[2020-03-14] MEDS: COLACE CAP 100 MG PO SCH (08:44)
[2020-03-14] MEDS: DIFLUCAN PO SCH (08:45)
[2020-03-14] MEDS: FORTAZ or TAZICEF VIAL INJ 1 G in NS 100 ML IV + SPIKE MINIBAG* 100 ML IV SCH (08:45)
[2020-03-14] MEDS: PEPCID TAB 20 MG PO SCH (08:46)
[2020-03-14] MEDS: MAGIC MOUTHWASH MT SCH ×3 (08:47→19:19)
[2020-03-14] MEDS: LOVENOX INJ 120 MG SYR SC SCH (08:47)
[2020-03-14] MEDS: ULTRAM PO PRN ×2 (11:15→18:00)
[2020-03-14] MEDS: ACCUNEB 1.25 MG NEBULE NEB SCH ×4 (11:56→21:30)
[2020-03-14] MEDS: MUCOMYST 20% 200 MG/ML NEB SCH ×4 (11:56→21:30)
[2020-03-14] MEDS: PULMICORT NEB TX 0.5 MG NEB SCH ×2 (11:57→21:30)
[2020-03-14] MEDS: VISTARIL PO PRN (18:00)
[2020-03-14] MEDS: LEVAQUIN PREMIX IV 750 MG 750 MG/150 ML BAG IV SCH (19:19)
[2020-03-15] MEDS: SOLU-Medrol 125 MG VIAL IVP SCH ×5 (01:06→21:35)
[2020-03-15] MEDS: ASCORBIC ACID INJ MULTI-DOSE VIAL 1,500 MG in NS 50 ML IV 50 ML IV SCH ×5 (01:06→21:35)
[2020-03-15] MEDS: TESSALON PERLES PO SCH ×4 (01:07→21:35)
[2020-03-15] MEDS: LIPITOR TAB 80 MG PO SCH ×2 (01:07→21:35)
[2020-03-15] MEDS: FORTAZ or TAZICEF VIAL INJ 1 G in NS 100 ML IV + SPIKE MINIBAG* 100 ML IV SCH ×3 (01:07→21:35)
[2020-03-15] MEDS: LOVENOX INJ 120 MG SYR SC SCH ×3 (01:08→21:35)
[2020-03-15] MEDS: SINGULAIR TAB 10 MG PO SCH ×2 (01:09→21:35)
[2020-03-15] MEDS: MAGIC MOUTHWASH MT SCH ×5 (01:09→21:35)
[2020-03-15] MEDS: ROBITUSSIN DM PO SCH ×5 (01:09→21:35)
[2020-03-15] MEDS: THEO-24 CAP 200 MG (24-HR) PO SCH ×3 (01:10→21:35)
[2020-03-15] MEDS: THIAMINE HCL INJ IVP SCH ×3 (01:10→21:35)
[2020-03-15] MEDS: ULTRAM PO PRN ×2 (02:14→14:51)
[2020-03-15] MEDS: VISTARIL PO PRN ×2 (02:15→09:56)
[2020-03-15 05:01] LABS: ABG ALLEN TEST POS; ABG BASE EXCESS -2.5 mmol/L (-2.0-2.0); ABG HCO3 22.5 mmol/L (22-26)
[2020-03-15] MEDS: NS 1000 ML 1,000 ML IV SCH ×3 (05:12→22:53)
[2020-03-15 06:08] LABS: BASOPHILS % (AUTO) 0.1 % (0.2-1.0); HEMATOCRIT 31.9 % (36.0-47.0); HEMOGLOBIN 10.4 g/dL (12.0-16.0); LYMPHOCYTES # (AUTO) 0.2 X10^3/uL (1.3-2.9); LYMPHOCYTES % (AUTO) 4.1 % (21.0-51.0); MEAN CORPUSCULAR HEMOGLOBIN 27.4 pg (27.0-34.0); MEAN CORPUSCULAR HGB CONC 32.7 g/dL (33.0-35.0); MEAN CORPUSCULAR VOLUME 83.7 fL (80.0-100.0); MEAN PLATELET VOLUME 8.4 fL (7.4-11.0); MONOCYTES # (AUTO) 0.4 x10^3/uL (0.3-0.8); MONOCYTES % (AUTO) 7.1 % (0.0-13.0); NEUTROPHILS # (AUTO) 4.6 x10^3/uL (2.2-4.8); NEUTROPHILS % (AUTO) 88.7 % (42.0-75.0); PLATELET COUNT 121 X10^3/uL (150.0-450.0); RED BLOOD COUNT 3.81 X10^6/uL (3.5-5.4); WHITE BLOOD COUNT 5.2 X10^3/uL (3.6-10.0)
[2020-03-15 06:33] LABS: ALBUMIN 1.6 g/dL (3.4-5.0); CALCIUM 8.3 mg/dL (8.5-10.1); CARBON DIOXIDE 21.8 mmol/L (21-32); COR CA(FOR HYPOALB) 10.2 mg/dL (8.5-10.1); CREATININE 1.44 mg/dL (0.55-1.02); TOTAL PROTEIN 6.3 g/dL (6.4-8.2)
--- NOTE | 2020-03-15 07:32 | RAD ---
Chest AP portableIndication: DyspneaCOMPARISONJan2020FINDINGSThere is no pneumothorax. There is cardiomegaly with patchy bilateral pulmonary opacities.IMPRESSION: Cardiomegaly and patchy pulmonary opacities, similar to the prior, most compatible with viral pneumonitis from [place]. Other infectious or inflammatory etiologies not excluded. Confirm clinically.Electronically signed by: LORAINE TILLEY (Mar 15, 2020 07:28:42)
[2020-03-15] MEDS: COLACE CAP 100 MG PO SCH (09:43)
[2020-03-15] MEDS: DIFLUCAN PO SCH (09:44)
[2020-03-15] MEDS: MELATONIN PO SCH (09:45)
[2020-03-15] MEDS: PEPCID TAB 20 MG PO SCH (09:45)
[2020-03-15] MEDS: REMDESIVIR 100 MG in NS 250 ML IV 250 ML IV SCH (09:46)
[2020-03-15] MEDS: PROTONIX TAB 40 MG PO SCH (09:46)
[2020-03-15] MEDS: VITAMIN D3 125 mcg (5,000 UNITS) PO SCH (09:47)
[2020-03-15] MEDS: ZINC SULFATE PO SCH (09:47)
[2020-03-15] MEDS: ZyrTEC TAB 10 MG PO SCH (09:48)
[2020-03-15] MEDS: ACCUNEB 1.25 MG NEBULE NEB SCH ×4 (09:50→22:01)
[2020-03-15] MEDS: PULMICORT NEB TX 0.5 MG NEB SCH ×2 (09:50→22:01)
[2020-03-15] MEDS: MUCOMYST 20% 200 MG/ML NEB SCH ×2 (09:50→13:48)
[2020-03-15] MEDS ORDERED: XANAX PO ONE (11:43)
[2020-03-15] MEDS: COZAAR PO SCH (14:33)
[2020-03-15] MEDS: SYNTHROID 100 mcg TAB PO SCH (14:34)
[2020-03-15] MEDS: NEURONTIN CAP 400 MG PO SCH ×2 (14:34→21:35)
[2020-03-15] MEDS: XANAX PO SCH ×2 (14:34→21:35)
[2020-03-15] MEDS: ZOLOFT PO SCH (21:35)
[2020-03-15] MEDS: TUSSIONEX PENNKINETIC SUSP PO PRN (21:35)
[2020-03-15] MEDS: PROCARDIA XL PO SCH (21:35)
[2020-03-15] MEDS: KENALOG OINT TOP SCH (21:35)
--- NOTE | 2020-03-15 21:47 | PCM.PROG ---
Progress Note - Progress Note for Day of Date of Exam: 03/15/20 - Subjective Subjective: IS BEING TREATED FOR PNEUMONIA DUE TO COVID-19 AND HYPOXIA. SHE HAS A PMH OF DIABETES, DYSLIPIDEMIA, AND HTN. TODAY, SHE IS ALERT AND ORIENTED, SITTING UP IN BED ON MORNING ROUNDS. SHE REPORTS SHORTNESS OF BREATH, COUGH, AND WEAKNESS THIS MORNING. SHE DENIES IMPROVEMENT SINCE ADMISSION. SHE ALSO REPORTS AND INCREASE IN ANXIETY. SHE IS CURRENTLY ON THE BIPAP AT 55%. HER SATURATIONS HAVE BEEN 89-97% THIS MORNING AND THROUGHOUT THE NIGHT. ON EXAMINATION, HEART IS REGULAR IN RATE AND RHYTHM. BILATERAL LUNGS ARE NOTED WITH RALES THROUGHOUT. ABDOMEN IS ROUND, SOFT, AND NON-TENDER WITH NORMAL BOWEL SOUNDS NOTED THROUGHOUT. THERE IS 1+ EDEMA NOTED TO LOWER EXTREMITIES. HER VITALS THIS MORNING ARE: 98.1-83-22-92%-212/87. LABS WERE OBTAINED. ABNORMAL LAB VALUES INCLUDE THE FOLLOWING: HGB 10.4, HCT 31.9, PLT COUNT 121, D-DIMER 1.51, CHLORIDE 108, BUN 52, CREATININE 1.44, GLUCOSE 224, CALCIUM 8.3, AST 75, ALK POS 275, CRP 21.80, TOTAL PROTEIN 6.3, ALBUMIN 1.6, GLOBULIN 4.7. BLOOD CULTURES ARE PENDING. CHAST XRAY WAS OBTAINED AND REVEALED: Cardiomegaly and patchy pulmonary opacities, similar to the prior, most compatible with viral pneumonitis from [place] 19. Other infectious or inflammatory etiologies not excluded. Confirm clinically. SHE IS CURRENTLY RECEIVING NS AT 150 ML/HR, REMDESIVIR 100MG IV DAILY, FORTAZ 1G IV Q12H, LEVAQUIN 750MG IV Q48H, ALBUTEROL NEBS QID, MUCOMYST IN NEBS QID, PULMICORT NEBS BID, ASCORBIC ACID 1500MG IV Q6H, CLONIDINE 0.2MG/HR TD PATCH, LIPITOR 80MG PO HS, TESSALON PERLES 200MG PO TID, ZYRTEC 10MG PO DAILY, TUSSIONEX 5ML PO Q12H PRN, COLACE 100MG PO HS, LOVENOX BID, PEPCID 20MG PO BID, DIFLUCAN 100MG PO DAILY, ROBITUSSIN DM 10ML PO QID, IVERMECTIN- PHARMACY TO DOSSE, MAGIC MOUTHWASH QID, MILK OF MAG BID PRN, MELATONIN 10MG PO HS, SOLU-MEDROL 125MG IV Q6H, SINGULAIR 10MG PO HS, PROTONIX 40MG PO DAILY, THIAMIN 200MG IV BID, AND ZINC SULFATE 220MG PO DAILY. WE WILL CONTINUE WITH CURRENT PLAN OF CARE TODAY AND ADD XANAX 0.5MG PO TID AND GABAPENTIN 800MG PO TID. WE WILL REVIEW HER OTHER HOME MEDICATIONS. OTHERWISE, WE WILL FOLLOW UP WITH AM LABS, XRAY, ABG, AND CONTINUE TO MONITOR. TIME SPENT ON CLINICAL ASSESSMENT, REVIEWING LABS AND IMAGING, DECISION MAKING, AND DOCUMENTATION GREATER THAN 75 MINUTES. - Past Medical Family Social History Past Med/Fam/Surg Hx: No changes since H&P Allergies: Allergies No Known Drug Allergies Allergy (Verified 03/12/20 09:37) - Review of Systems ROS: No change since H&P - Vital Signs and I&O's Vital Signs: Temperature 98.0 F Pulse Rate [Apical] 75 Pulse Rate 81 Respiratory Rate 16 Blood Pressure [Left Arm] 211/84 Blood Pressure [Right Arm] 192/84 Blood Pressure 189/87 O2 Sat by Pulse Oximetry 98 Intake and Output: Intake & Output 03/13/20 03/14/20 03/15/20 03/16/20 11:59 11:59 11:59 11:59 Intake Total 1722 / 1722 4648 / 4648 2019 1650 / 1650 Output Total 1500 / 1500 1900 / 1900 1840 / 1840 800 / 800 Balance 222 / 222 2748 / 2748 180 / 180 850 / 850 - Physical Exam Oriented: Unable to test Eyes: Normal Ear: Normal Nose: Normal Throat: Normal Respiratory: Diminished, Rales Cardiovascular: Normal : Normal Auscultation: Bowel Sounds: Normal Palpation: Normal Tenderness: Normal Skin: Normal Musculoskeletal: Normal Psychiatric: Other (UNABLE TO TEST ) Mood Description: Flat Affect: Normal Speech Pattern: Appropriate - Laboratory and Diagnostics Result Diagrams: 03/15/20 04:50 03/15/20 04:50 Labs: 03/12/20 16:17 Blood Blood Culture - Preliminary 03/12/20 16:10 Blood Blood Culture - Preliminary Laboratory WBC 5.2 X10^3/uL (3.6-10.0) 03/15/20 04:50 RBC 3.81 X10^6/uL (3.5-5.4) 03/15/20 04:50 Hgb 10.4 g/dL (12.0-16.0) L 03/15/20 04:50 Hct 31.9 % (36.0-47.0) L 03/15/20 04:50 MCV 83.7 fL (80.0-100.0) 03/15/20 04:50 MCH 27.4 pg (27.0-34.0) 03/15/20 04:50 MCHC 32.7 g/dL (33.0-35.0) L 03/15/20 04:50 RDW 15.0 % (11.6-16.5) 03/15/20 04:50 Plt Count 121 X10^3/uL (150.0-450.0) L 03/15/20 04:50 Plt Count Comment Decreased (ADEQUATE) A 03/14/20 07:00 MPV 8.4 fL (7.4-11.0) 03/15/20 04:50 Neut % (Auto) 88.7 % (42.0-75.0) H 03/15/20 04:50 Lymph % (Auto) 4.1 % (21.0-51.0) L 03/15/20 04:50 [place] % (Auto) 7.1 % (0.0-13.0) 03/15/20 04:50 Eos % (Auto) 0.0 % (0.9-2.9) L 03/15/20 04:50 Baso % (Auto) 0.1 % (0.2-1.0) L 03/15/20 04:50 Neut # (Auto) 4.6 x10^3/uL (2.2-4.8) 03/15/20 04:50 Lymph # (Auto) 0.2 X10^3/uL (1.3-2.9) L 03/15/20 04:50 Jenkins # (Auto) 0.4 x10^3/uL (0.3-0.8) 03/15/20 04:50 Eos # (Auto) 0.0 x10^3/uL (0.0-0.2) 03/15/20 04:50 Baso # (Auto) 0.0 X10^3/uL (0.0-0.1) 03/15/20 04:50 Absolute Nucleated RBC 0.1 /100WBC 03/15/20 04:50 Total Counted 100 03/14/20 07:00 Neutrophils % (Manual) 93 % (39-76) H 03/14/20 07:00 Band Neutrophils % 5 % (0-10) 03/13/20 06:19 Lymphocytes % (Manual) 3 % (13-43) L 03/14/20 07:00 Monocytes % (Manual) 7 % (4-9) 03/14/20 07:00 Plt Morphology Comment Normal (NORMAL) 03/14/20 07:00 RBC Morphology Normal (NORMAL) 03/14/20 07:00 ESR 89 MM/HOUR (0-20) H 03/12/20 09:45 PT 12.5 SECONDS (11.8-14.3) 03/12/20 09:45 INR Target Range - 03/12/20 09:45 INR 0.96 (0.8-1.3) 03/12/20 09:45 APTT 27.8 SECONDS (22.9-36.5) 03/12/20 09:45 PTT Comment - 03/12/20 09:45 D-Dimer 1.51 ug/ml (0.0-0.57) H* 03/15/20 04:50 Sample Site Rra 03/15/20 04:58 ABG pH 7.370 (7.35-7.45) 03/15/20 04:58 ABG pCO2 39.0 mmHg (35.0-45.0) 03/15/20 04:58 ABG pO2 60.0 mmHg (80.0-100.0) L 03/15/20 04:58 ABG HCO3 22.5 mmol/L (22-26) 03/15/20 04:58 ABG O2 Saturation 90.0 % (90-100) 03/15/20 04:58 ABG Base Excess -2.5 mmol/L (-2.0-2.0) L 03/15/20 04:58 Red Test Pos 03/15/20 04:58 A-a Gradient 283.0 mmHg 03/15/20 04:58 FiO2 55.0 03/15/20 04:58 Blood Gas Comments Pt [place] eb 03/15/20 04:58 Sodium 140 mmol/L (136-145) 03/15/20 04:50 Corrected Sodium 143 mmol/L (136-145) 03/15/20 04:50 Potassium 4.5 mmol/L (3.5-5.1) 03/15/20 04:50 Chloride 108 mmol/L (98-107) H 03/15/20 04:50 Carbon Dioxide 21.8 mmol/L (21-32) 03/15/20 04:50 BUN 52 mg/dL (7-18) H 03/15/20 04:50 Creatinine 1.44 mg/dL (0.55-1.02) H 03/15/20 04:50 Est GFR (MDRD) Af Amer 47 (>60) L 03/15/20 04:50 Est GFR (MDRD) Non-Af 39 (>60) L 03/15/20 04:50 Glucose 224 mg/dL (65-99) H 03/15/20 04:50 POC Glucose (mg/dL) 271 mg/dL (65-99) H 03/14/20 05:39 Lactic Acid 7.9 mmol/L (0.4-2.0) H 03/12/20 09:45 Calcium 8.3 mg/dL (8.5-10.1) L 03/15/20 04:50 Corrected Calcium 10.2 mg/dL (8.5-10.1) H 03/15/20 04:50 Ferritin 89 ng/mL (8-252) 03/15/20 04:50 Total Bilirubin 0.20 mg/dL (0.2-1.0) 03/15/20 04:50 AST 75 Units/L (15-37) H 03/15/20 04:50 ALT 31 Units/L (12-78) 03/15/20 04:50 Alkaline Phosphatase 275 Units/L (46-116) H 03/15/20 04:50 Creatine Kinase 57 Units/L (26-192) 03/12/20 16:10 CK-MB (CK-2) 1.6 ng/mL (0-4.0) 03/12/20 16:10 CK/CKMB % Calc 2.8 % (<4) 03/12/20 16:10 Troponin I 0.18 ng/mL (0-1.5) 03/12/20 16:10 C-Reactive Protein 21.80 mg/L (0-3.0) H 03/15/20 04:50 B-Natriuretic Peptide 321 pg/mL (0-79) H 03/13/20 06:19 Total Protein 6.3 g/dL (6.4-8.2) L 03/15/20 04:50 Albumin 1.6 g/dL (3.4-5.0) L 03/15/20 04:50 Globulin 4.7 g/dL (2.5-4.5) H 03/15/20 04:50 Albumin/Globulin Ratio 0.3 Ratio (1.1-2.1) L 03/15/20 04:50 Specimen Type Clean catch urine 03/12/20 09:45 Urine Color Yellow (YELLOW) 03/12/20 09:45 Urine Appearance Slightly hazy (CLEAR) 03/12/20 09:45 Urine pH 5.0 (5.0 - 8.0) 03/12/20 09:45 Ur Specific [place] 1.025 (1.000-1.030) 03/12/20 09:45 Urine Protein 4+ (NEGATIVE) 03/12/20 09:45 Urine Glucose (UA) Negative (NEGATIVE) 03/12/20 09:45 Urine Ketones Negative (NEGATIVE) 03/12/20 09:45 Urine Occult Blood 2+ (NEGATIVE) 03/12/20 09:45 Urine Nitrite Negative (NEGATIVE) 03/12/20 09:45 Urine Bilirubin Negative (NEGATIVE) 03/12/20 09:45 Urine Urobilinogen Normal (NORMAL) 03/12/20 09:45 Ur Leukocyte Esterase Negative (NEGATIVE) 03/12/20 09:45 Urine RBC 3-5 /HPF (0-3) A 03/12/20 09:45 Urine WBC 0-2 /HPF (0-5) 03/12/20 09:45 Ur Squamous Epith Cells Few /HPF (NEGATIVE) 03/12/20 09:45 Amorphous Sediment Trace /HPF (NEGATIVE) 03/12/20 09:45 Urine Bacteria Trace /HPF (NEGATIVE) 03/12/20 09:45 Hyaline Casts Few /LPF (NEGATIVE) 03/12/20 09:45 Ur Culture Indicated? No/not indicated 03/12/20 09:45 SARS CoV-2 RNA Rapid FRANCISCO JAVIER Positive (NEGATIVE) A 03/12/20 10:23 - Plan (1) Pneumonia due to COVID-19 virus Status: Acute Plan: BIPAP, NS AT 150 ML/HR, REMDESIVIR 100MG IV DAILY, FORTAZ 1G IV Q12H, LEVAQUIN 750MG IV Q48H, ALBUTEROL NEBS QID, MUCOMYST IN NEBS QID, PULMICORT NEBS BID, ASCORBIC ACID 1500MG IV Q6H, CLONIDINE 0.2MG/HR TD PATCH, XANAX 0.5MG PO TID, GABAPENTIN 800MG PO TID, LIPITOR 80MG PO HS, TESSALON PERLES 200MG PO TID, ZYRTEC 10MG PO DAILY, TUSSIONEX 5ML PO Q12H PRN, COLACE 100MG PO HS, LOVENOX BID, PEPCID 20MG PO BID, DIFLUCAN 100MG PO DAILY, ROBITUSSIN DM 10ML PO QID, I VERMECTIN- PHARMACY TO DOSE, MAGIC MOUTHWASH QID, MILK OF MAG BID PRN, MELATONIN 10MG PO HS, SOLU-MEDROL 125MG IV Q6H, SINGULAIR 10MG PO HS, PROTONIX 40MG PO DAILY, THIAMINE 200MG IV BID, AND ZINC SULFATE 220MG PO DAILY (2) Hypoxia Status: Acute (3) Acute respiratory failure Status: Acute Qualifiers: Respiratory failure complication: hypoxia Qualified Code(s): J96.01 - Acute respiratory failure with hypoxia
--- NOTE | 2020-03-15 21:55 | PCM.PROG ---
Progress Note - Progress Note for Day of Date of Exam: 03/14/20 - Subjective Subjective: IS BEING TREATED FOR PNEUMONIA DUE TO COVID-19 AND HYPOXIA. SHE HAS A PMH OF DIABETES, DYSLIPIDEMIA, AND HTN. TODAY, SHE IS ALERT AND ORIENTED, SITTING UP IN BED ON MORNING ROUNDS. SHE REPORTS SHORTNESS OF BREATH, COUGH, AND WEAKNESS THIS MORNING. SHE DENIES IMPROVEMENT SINCE ADMISSION. SHE ALSO REPORTS AND INCREASE IN ANXIETY. SHE IS CURRENTLY ON THE BIPAP AT 55%. HER SATURATIONS HAVE BEEN 95-100% THIS MORNING AND THROUGHOUT THE NIGHT. ON EXAMINATION, HEART IS REGULAR IN RATE AND RHYTHM. BILATERAL LUNGS ARE NOTED WITH RALES THROUGHOUT. ABDOMEN IS ROUND, SOFT, AND NON-TENDER WITH NORMAL BOWEL SOUNDS NOTED THROUGHOUT. THERE IS 1+ EDEMA NOTED TO LOWER EXTREMITIES. HER VITALS THIS MORNING ARE: 98.2-77-24-100%-189/87. LABS WERE OBTAINED. ABNORMAL LAB VALUES INCLUDE THE FOLLOWING: HGB 10.8, RBC 33.1, PLT COUNT 108, D-DIMER 1.65, CREATININE 1.44, GLUCOSE 276, CALCIUM 8.1, AST 101, ALK PHOS 257, CRP 40.50, ALBUMIN 1.6, GLOBULIN 5.0. BLOOD CULTURES ARE PENDING. ABG REVEALED: PH 7.390, PC02 34, P02 251.0, HC03 20.6, 02 SAT 100, A-A GRADIENT 420, FI02 100. CHEST XRAY WAS OBTAINED AND REVEALED: No change bilateral interstitial and patchy alveolar infiltrates when compared to the prior examination. SHE IS CURRENTLY RECEIVING NS AT 150 ML/HR, REMDESIVIR 100MG IV DAILY, FORTAZ 1G IV Q12H, LEVAQUIN 750MG IV Q48H, ALBUTEROL NEBS QID, MUCOMYST IN NEBS QID, PULMICORT NEBS BID, ASCORBIC ACID 1500MG IV Q6H, CLONIDINE 0.2MG/HR TD PATCH, LIPITOR 80MG PO HS, TESSALON PERLES 200MG PO TID, ZYRTEC 10MG PO DAILY, TUSSIONEX 5ML PO Q12H PRN, COLACE 100MG PO HS, LOVENOX BID, PEPCID 20MG PO BID, DIFLUCAN 100MG PO DAILY, ROBITUSSIN DM 10ML PO QID, IVERMECTIN- PHARMACY TO DOSE, MAGIC MOUTHWASH QID, MILK OF MAG BID PRN, MELATONIN 10MG PO HS, SOLU- MEDROL 125MG IV Q6H, SINGULAIR 10MG PO HS, PROTONIX 40MG PO DAILY, THIAMIN 200MG IV BID, AND ZINC SULFATE 220MG PO DAILY. WE WILL CONTINUE WITH CURRENT PLAN OF CARE TODAY. OTHERWISE, WE WILL FOLLOW UP WITH AM LABS, XRAY, ABG, AND CONTINUE TO MONITOR. TIME SPENT ON CLINICAL ASSESSMENT, REVIEWING LABS AND IMAGING, DECISION MAKING, AND DOCUMENTATION GREATER THAN 75 MINUTES. - Past Medical Family Social History Past Med/Fam/Surg Hx: No changes since H&P Allergies: Allergies No Known Drug Allergies Allergy (Verified 03/12/20 09:37) - Review of Systems ROS: No change since H&P - Vital Signs and I&O's Vital Signs: Temperature 98.0 F Pulse Rate [Apical] 75 Pulse Rate 81 Respiratory Rate 16 Blood Pressure [Left Arm] 211/84 Blood Pressure [Right Arm] 192/84 Blood Pressure 189/87 O2 Sat by Pulse Oximetry 98 Intake and Output: Intake & Output 03/13/20 03/14/20 03/15/20 03/16/20 11:59 11:59 11:59 11:59 Intake Total 1722 / 1722 4648 / 4648 2019 / 2019 1650 / 1650 Output Total 1500 / 1500 1900 / 1900 1840 / 1840 800 / 800 Balance 222 / 222 2748 / 2748 180 / 180 850 / 850 - Physical Exam Oriented: Unable to test Eyes: Normal Ear: Normal Nose: Normal Throat: Normal Respiratory: Diminished, Rales Cardiovascular: Normal : Normal Auscultation: Bowel Sounds: Normal Palpation: Normal Tenderness: Normal Skin: Normal Musculoskeletal: Normal Psychiatric: Other (UNABLE TO TEST ) Mood Description: Flat Affect: Normal Speech Pattern: Appropriate - Laboratory and Diagnostics Result Diagrams: 03/15/20 04:50 03/15/20 04:50 Labs: 03/12/20 16:17 Blood Blood Culture - Preliminary 03/12/20 16:10 Blood Blood Culture - Preliminary Laboratory WBC 5.2 X10^3/uL (3.6-10.0) 03/15/20 04:50 RBC 3.81 X10^6/uL (3.5-5.4) 03/15/20 04:50 Hgb 10.4 g/dL (12.0-16.0) L 03/15/20 04:50 Hct 31.9 % (36.0-47.0) L 03/15/20 04:50 MCV 83.7 fL (80.0-100.0) 03/15/20 04:50 MCH 27.4 pg (27.0-34.0) 03/15/20 04:50 MCHC 32.7 g/dL (33.0-35.0) L 03/15/20 04:50 RDW 15.0 % (11.6-16.5) 03/15/20 04:50 Plt Count 121 X10^3/uL (150.0-450.0) L 03/15/20 04:50 Plt Count Comment Decreased (ADEQUATE) A 03/14/20 07:00 MPV 8.4 fL (7.4-11.0) 03/15/20 04:50 Neut % (Auto) 88.7 % (42.0-75.0) H 03/15/20 04:50 Lymph % (Auto) 4.1 % (21.0-51.0) L 03/15/20 04:50 [place] % (Auto) 7.1 % (0.0-13.0) 03/15/20 04:50 Eos % (Auto) 0.0 % (0.9-2.9) L 03/15/20 04:50 Baso % (Auto) 0.1 % (0.2-1.0) L 03/15/20 04:50 Neut # (Auto) 4.6 x10^3/uL (2.2-4.8) 03/15/20 04:50 Lymph # (Auto) 0.2 X10^3/uL (1.3-2.9) L 03/15/20 04:50 [place] # (Auto) 0.4 x10^3/uL (0.3-0.8) 03/15/20 04:50 Eos # (Auto) 0.0 x10^3/uL (0.0-0.2) 03/15/20 04:50 Baso # (Auto) 0.0 X10^3/uL (0.0-0.1) 03/15/20 04:50 Absolute Nucleated RBC 0.1 /100WBC 03/15/20 04:50 Total Counted 100 03/14/20 07:00 Neutrophils % (Manual) 93 % (39-76) H 03/14/20 07:00 Band Neutrophils % 5 % (0-10) 03/13/20 06:19 Lymphocytes % (Manual) 3 % (13-43) L 03/14/20 07:00 Monocytes % (Manual) 7 % (4-9) 03/14/20 07:00 Plt Morphology Comment Normal (NORMAL) 03/14/20 07:00 RBC Morphology Normal (NORMAL) 03/14/20 07:00 ESR 89 MM/HOUR (0-20) H 03/12/20 09:45 PT 12.5 SECONDS (11.8-14.3) 03/12/20 09:45 INR Target Range - 03/12/20 09:45 INR 0.96 (0.8-1.3) 03/12/20 09:45 APTT 27.8 SECONDS (22.9-36.5) 03/12/20 09:45 PTT Comment - 03/12/20 09:45 D-Dimer 1.51 ug/ml (0.0-0.57) H* 03/15/20 04:50 Sample Site Rra 03/15/20 04:58 ABG pH 7.370 (7.35-7.45) 03/15/20 04:58 ABG pCO2 39.0 mmHg (35.0-45.0) 03/15/20 04:58 ABG pO2 60.0 mmHg (80.0-100.0) L 03/15/20 04:58 ABG HCO3 22.5 mmol/L (22-26) 03/15/20 04:58 ABG O2 Saturation 90.0 % (90-100) 03/15/20 04:58 ABG Base Excess -2.5 mmol/L (-2.0-2.0) L 03/15/20 04:58 Red Test Pos 03/15/20 04:58 A-a Gradient 283.0 mmHg 03/15/20 04:58 FiO2 55.0 03/15/20 04:58 Blood Gas Comments Pt [place] eb 03/15/20 04:58 Sodium 140 mmol/L (136-145) 03/15/20 04:50 Corrected Sodium 143 mmol/L (136-145) 03/15/20 04:50 Potassium 4.5 mmol/L (3.5-5.1) 03/15/20 04:50 Chloride 108 mmol/L (98-107) H 03/15/20 04:50 Carbon Dioxide 21.8 mmol/L (21-32) 03/15/20 04:50 BUN 52 mg/dL (7-18) H 03/15/20 04:50 Creatinine 1.44 mg/dL (0.55-1.02) H 03/15/20 04:50 Est GFR (MDRD) Af Amer 47 (>60) L 03/15/20 04:50 Est GFR (MDRD) Non-Af 39 (>60) L 03/15/20 04:50 Glucose 224 mg/dL (65-99) H 03/15/20 04:50 POC Glucose (mg/dL) 271 mg/dL (65-99) H 03/14/20 05:39 Lactic Acid 7.9 mmol/L (0.4-2.0) H 03/12/20 09:45 Calcium 8.3 mg/dL (8.5-10.1) L 03/15/20 04:50 Corrected Calcium 10.2 mg/dL (8.5-10.1) H 03/15/20 04:50 Ferritin 89 ng/mL (8-252) 03/15/20 04:50 Total Bilirubin 0.20 mg/dL (0.2-1.0) 03/15/20 04:50 AST 75 Units/L (15-37) H 03/15/20 04:50 ALT 31 Units/L (12-78) 03/15/20 04:50 Alkaline Phosphatase 275 Units/L (46-116) H 03/15/20 04:50 Creatine Kinase 57 Units/L (26-192) 03/12/20 16:10 CK-MB (CK-2) 1.6 ng/mL (0-4.0) 03/12/20 16:10 CK/CKMB % Calc 2.8 % (<4) 03/12/20 16:10 Troponin I 0.18 ng/mL (0-1.5) 03/12/20 16:10 C-Reactive Protein 21.80 mg/L (0-3.0) H 03/15/20 04:50 B-Natriuretic Peptide 321 pg/mL (0-79) H 03/13/20 06:19 Total Protein 6.3 g/dL (6.4-8.2) L 03/15/20 04:50 Albumin 1.6 g/dL (3.4-5.0) L 03/15/20 04:50 Globulin 4.7 g/dL (2.5-4.5) H 03/15/20 04:50 Albumin/Globulin Ratio 0.3 Ratio (1.1-2.1) L 03/15/20 04:50 Specimen Type Clean catch urine 03/12/20 09:45 Urine Color Yellow (YELLOW) 03/12/20 09:45 Urine Appearance Slightly hazy (CLEAR) 03/12/20 09:45 Urine pH 5.0 (5.0 - 8.0) 03/12/20 09:45 Ur Specific [place] 1.025 (1.000-1.030) 03/12/20 09:45 Urine Protein 4+ (NEGATIVE) 03/12/20 09:45 Urine Glucose (UA) Negative (NEGATIVE) 03/12/20 09:45 Urine Ketones Negative (NEGATIVE) 03/12/20 09:45 Urine Occult Blood 2+ (NEGATIVE) 03/12/20 09:45 Urine Nitrite Negative (NEGATIVE) 03/12/20 09:45 Urine Bilirubin Negative (NEGATIVE) 03/12/20 09:45 Urine Urobilinogen Normal (NORMAL) 03/12/20 09:45 Ur Leukocyte Esterase Negative (NEGATIVE) 03/12/20 09:45 Urine RBC 3-5 /HPF (0-3) A 03/12/20 09:45 Urine WBC 0-2 /HPF (0-5) 03/12/20 09:45 Ur Squamous Epith Cells Few /HPF (NEGATIVE) 03/12/20 09:45 Amorphous Sediment Trace /HPF (NEGATIVE) 03/12/20 09:45 Urine Bacteria Trace /HPF (NEGATIVE) 03/12/20 09:45 Hyaline Casts Few /LPF (NEGATIVE) 03/12/20 09:45 Ur Culture Indicated? No/not indicated 03/12/20 09:45 SARS CoV-2 RNA Rapid FRANCISCO JAVIER Positive (NEGATIVE) A 03/12/20 10:23 - Plan (1) Pneumonia due to COVID-19 virus Status: Acute Plan: BIPAP, NS AT 150 ML/HR, REMDESIVIR 100MG IV DAILY, FORTAZ 1G IV Q12H, LEVAQUIN 750MG IV Q48H, ALBUTEROL NEBS QID, MUCOMYST IN NEBS QID, PULMICORT NEBS BID, ASCORBIC ACID 1500MG IV Q6H, CLONIDINE 0.2MG/HR TD PATCH, LIPITOR 80MG PO HS, TESSALON PERLES 200MG PO TID, ZYRTEC 10MG PO DAILY, TUSSIONEX 5ML PO Q12H PRN, COLACE 100MG PO HS, LOVENOX BID, PEPCID 20MG PO BID, DIFLUCAN 100MG PO DAILY, ROBITUSSIN DM 10ML PO QID, IVERMECTIN- PHARMACY TO DOSE, MAGIC MOUTHWASH QID, MILK OF MAG BID PRN, MELATONIN 10MG PO HS, SOLU-MEDROL 125MG IV Q6H, SINGULAIR 10MG PO HS, PROTONIX 40MG PO DAILY, THIAMINE 200MG IV BID, AND ZINC SULFATE 220MG PO DAILY (2) Hypoxia Status: Acute (3) Acute respiratory failure Status: Acute Qualifiers: Respiratory failure complication: hypoxia Qualified Code(s): J96.01 - Acute respiratory failure with hypoxia
[2020-03-16] MEDS: NS 1000 ML 1,000 ML IV SCH ×4 (02:07→22:59)
[2020-03-16] MEDS: SOLU-Medrol 125 MG VIAL IVP SCH ×4 (03:26→21:15)
[2020-03-16] MEDS: ASCORBIC ACID INJ MULTI-DOSE VIAL 1,500 MG in NS 50 ML IV 50 ML IV SCH ×4 (03:26→21:15)
[2020-03-16 05:34] LABS: BASOPHILS % (AUTO) 0.4 % (0.2-1.0); HEMOGLOBIN 10.3 g/dL (12.0-16.0); LYMPHOCYTES # (AUTO) 0.1 X10^3/uL (1.3-2.9); LYMPHOCYTES % (AUTO) 3.2 % (21.0-51.0); MEAN CORPUSCULAR HGB CONC 31.3 g/dL (33.0-35.0); MEAN CORPUSCULAR VOLUME 86.2 fL (80.0-100.0); MEAN PLATELET VOLUME 8.7 fL (7.4-11.0); MONOCYTES # (AUTO) 0.2 x10^3/uL (0.3-0.8); MONOCYTES % (AUTO) 6.3 % (0.0-13.0); NEUTROPHILS # (AUTO) 2.9 x10^3/uL (2.2-4.8); NEUTROPHILS % (AUTO) 90.1 % (42.0-75.0); PLATELET COUNT 98 X10^3/uL (150.0-450.0); RED BLOOD COUNT 3.83 X10^6/uL (3.5-5.4); RED CELL DISTRIBUTION WIDTH 15.3 % (11.6-16.5); WHITE BLOOD COUNT 3.2 X10^3/uL (3.6-10.0)
[2020-03-16] MEDS: NEURONTIN CAP 400 MG PO SCH ×3 (05:35→21:15)
[2020-03-16] MEDS: TESSALON PERLES PO SCH ×3 (05:35→21:15)
[2020-03-16] MEDS: XANAX PO SCH ×3 (05:36→21:15)
[2020-03-16] MEDS: TUSSIONEX PENNKINETIC SUSP PO PRN (05:36)
[2020-03-16 05:38] LABS: ABG BASE EXCESS -5.3 mmol/L (-2.0-2.0); ABG HCO3 19.1 mmol/L (22-26)
[2020-03-16 05:38] LABS: ALBUMIN 1.5 g/dL (3.4-5.0); CALCIUM 7.8 mg/dL (8.5-10.1); CARBON DIOXIDE 20.3 mmol/L (21-32); COR CA(FOR HYPOALB) 9.8 mg/dL (8.5-10.1); CREATININE 1.58 mg/dL (0.55-1.02); TOTAL PROTEIN 6.2 g/dL (6.4-8.2)
[2020-03-16 05:40] LABS: ABG ALLEN TEST POSS
--- NOTE | 2020-03-16 05:49 | RAD ---
PROCEDURE: Chest X-ray 1 View .HISTORY: Short of breath.TECHNIQUE: AP view .COMPARISON: 03/15/2020.TECHNICAL QUALITY: Satisfactory .FINDINGS:Normal size heart .Mediastinum and hilar regions show no masses or lymphadenopathy .Normal central vascularity .Unchanged mild patchy consolidation lung bases consistent with pneumonia with no pleural fluid or pneumothorax.No acute bony abnormality .IMPRESSION:Unchanged bilateral basilar pneumonia.Electronically signed by: Archie Infante (Mar 16, 2020 05:48:06)
[2020-03-16 06:20] LABS: PLATELET MORPHOLOGY COMMENT NORMAL (NORMAL)
[2020-03-16] MEDS: REMDESIVIR 100 MG in NS 250 ML IV 250 ML IV SCH (09:12)
[2020-03-16] MEDS: LOVENOX INJ 120 MG SYR SC SCH ×2 (09:12→21:15)
[2020-03-16] MEDS: FORTAZ or TAZICEF VIAL INJ 1 G in NS 100 ML IV + SPIKE MINIBAG* 100 ML IV SCH ×2 (09:13→21:15)
[2020-03-16] MEDS: THEO-24 CAP 200 MG (24-HR) PO SCH ×2 (09:14→21:15)
[2020-03-16] MEDS: ROBITUSSIN DM PO SCH ×4 (09:14→21:15)
[2020-03-16] MEDS: DIFLUCAN PO SCH (09:15)
[2020-03-16] MEDS: COLACE CAP 100 MG PO SCH (09:15)
[2020-03-16] MEDS: PEPCID TAB 20 MG PO SCH (09:15)
[2020-03-16] MEDS: PROTONIX TAB 40 MG PO SCH (09:16)
[2020-03-16] MEDS: KENALOG OINT TOP SCH ×2 (09:16→21:15)
[2020-03-16] MEDS: COZAAR PO SCH (09:16)
[2020-03-16] MEDS: MELATONIN PO SCH (09:17)
[2020-03-16] MEDS: MAGIC MOUTHWASH MT SCH ×4 (09:17→21:15)
[2020-03-16] MEDS: SYNTHROID 100 mcg TAB PO SCH (09:17)
[2020-03-16] MEDS: VITAMIN D3 125 mcg (5,000 UNITS) PO SCH (09:18)
[2020-03-16] MEDS: ZINC SULFATE PO SCH (09:18)
[2020-03-16] MEDS: ZyrTEC TAB 10 MG PO SCH (09:18)
[2020-03-16] MEDS: THIAMINE HCL INJ IVP SCH ×2 (09:20→21:15)
[2020-03-16] MEDS: ACCUNEB 1.25 MG NEBULE NEB SCH ×4 (10:05→21:00)
[2020-03-16] MEDS: PULMICORT NEB TX 0.5 MG NEB SCH ×2 (10:05→21:00)
[2020-03-16] MEDS: LEVAQUIN PREMIX IV 750 MG 750 MG/150 ML BAG IV SCH (16:09)
[2020-03-16] MEDS: PROCARDIA XL PO SCH (21:15)
[2020-03-16] MEDS: SINGULAIR TAB 10 MG PO SCH (21:15)
[2020-03-16] MEDS: ULTRAM PO PRN (21:15)
[2020-03-16] MEDS: LIPITOR TAB 80 MG PO SCH (21:15)
[2020-03-16] MEDS: ZOLOFT PO SCH (21:15)
[2020-03-16] MEDS: HumuLIN R SUBCUT PRN (22:40)
[2020-03-17] MEDS: HumuLIN R SUBCUT PRN ×5 (02:49→21:32)
[2020-03-17] MEDS: NS 1000 ML 1,000 ML IV SCH ×2 (02:49→13:09)
[2020-03-17] MEDS: ASCORBIC ACID INJ MULTI-DOSE VIAL 1,500 MG in NS 50 ML IV 50 ML IV SCH ×4 (02:50→21:28)
[2020-03-17] MEDS: SOLU-Medrol 125 MG VIAL IVP SCH ×4 (04:40→21:26)
[2020-03-17] MEDS: XANAX PO SCH ×3 (06:00→21:27)
[2020-03-17] MEDS: TESSALON PERLES PO SCH ×3 (06:00→21:25)
[2020-03-17] MEDS: NEURONTIN CAP 400 MG PO SCH ×3 (06:20→21:26)
--- NOTE | 2020-03-17 06:45 | RAD ---
HISTORYcovidSTUDYPortable AP [id number] unchanged cardiac size and contour. There is slight interval increase in bilateral confluent airspace disease. No large pleural effusion or extrapulmonary air is identified.IMPRESSIONInterval progression of bilateral pneumonia.Electronically signed by: LUIS RAJPUT (Mar 17, 2020 06:44:01)
[2020-03-17 07:09] LABS: ABG BASE EXCESS -7.7 mmol/L (-2.0-2.0)
[2020-03-17 07:12] LABS: ABG ALLEN TEST POSS; ABG HCO3 17.5 mmol/L (22-26)
[2020-03-17 07:51] LABS: BASOPHILS % (AUTO) 0.5 % (0.2-1.0); HEMATOCRIT 31.9 % (36.0-47.0); HEMOGLOBIN 10.2 g/dL (12.0-16.0); LYMPHOCYTES # (AUTO) 0.1 X10^3/uL (1.3-2.9); LYMPHOCYTES % (AUTO) 1.6 % (21.0-51.0); MEAN CORPUSCULAR HEMOGLOBIN 26.8 pg (27.0-34.0); MEAN CORPUSCULAR VOLUME 83.7 fL (80.0-100.0); MEAN PLATELET VOLUME 8.3 fL (7.4-11.0); MONOCYTES # (AUTO) 0.4 x10^3/uL (0.3-0.8); MONOCYTES % (AUTO) 5.8 % (0.0-13.0); NEUTROPHILS # (AUTO) 6.5 x10^3/uL (2.2-4.8); NEUTROPHILS % (AUTO) 92.1 % (42.0-75.0); PLATELET COUNT 129 X10^3/uL (150.0-450.0); RED BLOOD COUNT 3.81 X10^6/uL (3.5-5.4); RED CELL DISTRIBUTION WIDTH 14.7 % (11.6-16.5); WHITE BLOOD COUNT 7.1 X10^3/uL (3.6-10.0)
[2020-03-17 08:07] LABS: ALBUMIN 1.4 g/dL (3.4-5.0); CALCIUM 7.6 mg/dL (8.5-10.1); CARBON DIOXIDE 19.7 mmol/L (21-32); COR CA(FOR HYPOALB) 9.7 mg/dL (8.5-10.1); CREATININE 1.52 mg/dL (0.55-1.02); MAGNESIUM 2.1 mg/dL (1.7-2.9); TOTAL PROTEIN 6.1 g/dL (6.4-8.2)
[2020-03-17 08:47] LABS: BAND NEUTROPHILS % 3 % (0-10)
[2020-03-17 08:48] LABS: PLATELET MORPHOLOGY COMMENT NORMAL (NORMAL)
[2020-03-17] MEDS: PULMICORT NEB TX 0.5 MG NEB SCH ×2 (09:08→21:25)
[2020-03-17] MEDS: ACCUNEB 1.25 MG NEBULE NEB SCH ×4 (09:08→21:25)
[2020-03-17] MEDS: COLACE CAP 100 MG PO SCH (10:11)
[2020-03-17] MEDS: KENALOG OINT TOP SCH ×2 (10:12→21:31)
[2020-03-17] MEDS: COZAAR PO SCH (10:12)
[2020-03-17] MEDS: DIFLUCAN PO SCH (10:12)
[2020-03-17] MEDS: LOVENOX INJ 120 MG SYR SC SCH ×2 (10:13→21:28)
[2020-03-17] MEDS: MELATONIN PO SCH (10:13)
[2020-03-17] MEDS: MAGIC MOUTHWASH MT SCH ×4 (10:13→21:27)
[2020-03-17] MEDS: SYNTHROID 100 mcg TAB PO SCH (10:14)
[2020-03-17] MEDS: PEPCID TAB 20 MG PO SCH (10:14)
[2020-03-17] MEDS: THEO-24 CAP 200 MG (24-HR) PO SCH ×2 (10:15→21:28)
[2020-03-17] MEDS: ROBITUSSIN DM PO SCH ×4 (10:15→21:28)
[2020-03-17] MEDS: PROTONIX TAB 40 MG PO SCH (10:15)
[2020-03-17] MEDS: THIAMINE HCL INJ IVP SCH ×2 (10:16→21:27)
[2020-03-17] MEDS: VITAMIN D3 125 mcg (5,000 UNITS) PO SCH (10:17)
[2020-03-17] MEDS: ZyrTEC TAB 10 MG PO SCH (10:17)
[2020-03-17] MEDS: ZINC SULFATE PO SCH (10:17)
[2020-03-17] MEDS: FORTAZ or TAZICEF VIAL INJ 1 G in NS 100 ML IV + SPIKE MINIBAG* 100 ML IV SCH ×2 (12:13→21:31)
[2020-03-17] MEDS: PROCARDIA XL PO SCH ×2 (13:08→21:28)
[2020-03-17] MEDS ORDERED: SNACK - Diabetic Appropriate PO SCH (20:00)
[2020-03-17] MEDS: ZOLOFT PO SCH (21:25)
[2020-03-17] MEDS: SNACK - Diabetic Appropriate PO SCH (21:25)
[2020-03-17] MEDS: SINGULAIR TAB 10 MG PO SCH (21:26)
[2020-03-17] MEDS: LIPITOR TAB 80 MG PO SCH (21:27)
[2020-03-18] MEDS: APRESOLINE INJ 20 MG VIAL IVP PRN (00:17)
[2020-03-18] MEDS: ASCORBIC ACID INJ MULTI-DOSE VIAL 1,500 MG in NS 50 ML IV 50 ML IV SCH ×4 (02:33→22:25)
[2020-03-18] MEDS: SOLU-Medrol 125 MG VIAL IVP SCH ×4 (04:09→22:24)
[2020-03-18] MEDS: NS 1000 ML 1,000 ML IV SCH ×2 (04:09→16:07)
[2020-03-18 04:14] LABS: ABG BASE EXCESS -4.8 mmol/L (-2.0-2.0); ABG HCO3 19.5 mmol/L (22-26)
[2020-03-18 04:16] LABS: ABG ALLEN TEST POSS
[2020-03-18 05:05] LABS: BASOPHILS % (AUTO) 0.3 % (0.2-1.0); EOSINOPHILS % (AUTO) 0.1 % (0.9-2.9); HEMATOCRIT 35.3 % (36.0-47.0); HEMOGLOBIN 11.5 g/dL (12.0-16.0); LYMPHOCYTES # (AUTO) 0.2 X10^3/uL (1.3-2.9); LYMPHOCYTES % (AUTO) 1.9 % (21.0-51.0); MEAN CORPUSCULAR HEMOGLOBIN 27.2 pg (27.0-34.0); MEAN CORPUSCULAR HGB CONC 32.6 g/dL (33.0-35.0); MEAN CORPUSCULAR VOLUME 83.4 fL (80.0-100.0); MEAN PLATELET VOLUME 8.5 fL (7.4-11.0); MONOCYTES # (AUTO) 0.5 x10^3/uL (0.3-0.8); MONOCYTES % (AUTO) 6.2 % (0.0-13.0); NEUTROPHILS # (AUTO) 7.5 x10^3/uL (2.2-4.8); NEUTROPHILS % (AUTO) 91.5 % (42.0-75.0); PLATELET COUNT 152 X10^3/uL (150.0-450.0); RED BLOOD COUNT 4.23 X10^6/uL (3.5-5.4); RED CELL DISTRIBUTION WIDTH 14.7 % (11.6-16.5); WHITE BLOOD COUNT 8.2 X10^3/uL (3.6-10.0)
[2020-03-18] MEDS: TESSALON PERLES PO SCH ×3 (05:11→22:24)
[2020-03-18] MEDS: NEURONTIN CAP 400 MG PO SCH ×3 (05:11→22:24)
[2020-03-18 05:12] LABS: ALBUMIN 1.4 g/dL (3.4-5.0); CALCIUM 8.1 mg/dL (8.5-10.1); CARBON DIOXIDE 23.6 mmol/L (21-32); COR CA(FOR HYPOALB) 10.2 mg/dL (8.5-10.1); CREATININE 1.35 mg/dL (0.55-1.02); TOTAL PROTEIN 6.7 g/dL (6.4-8.2)
[2020-03-18] MEDS: XANAX PO SCH ×3 (05:12→22:24)
[2020-03-18 05:17] LABS: BAND NEUTROPHILS % 2 % (0-10); PLATELET MORPHOLOGY COMMENT NORMAL (NORMAL)
[2020-03-18] MEDS: HumuLIN R SUBCUT PRN ×4 (05:31→22:29)
--- NOTE | 2020-03-18 06:30 | RAD ---
HISTORYcovidSTUDYPortable AP [id number] is no significant change in appearance of heart, lungs or mediastinum. Similar extent and distribution of bilateral pulmonary infiltrates, left greater than right. No complicating pneumothorax or large pleural effusion is evident.IMPRESSIONNo change in appearance of the bilateral pneumonia.Electronically signed by: LUIS RAJPUT (Mar 18, 2020 06:29:11)
[2020-03-18] MEDS: LOVENOX INJ 120 MG SYR SC SCH ×2 (08:30→21:00)
[2020-03-18] MEDS: COLACE CAP 100 MG PO SCH (08:31)
[2020-03-18] MEDS: COZAAR PO SCH (08:31)
[2020-03-18] MEDS: KENALOG OINT TOP SCH ×2 (08:32→22:26)
[2020-03-18] MEDS: DIFLUCAN PO SCH (08:32)
[2020-03-18] MEDS: FORTAZ or TAZICEF VIAL INJ 1 G in NS 100 ML IV + SPIKE MINIBAG* 100 ML IV SCH ×2 (08:32→22:25)
[2020-03-18] MEDS: MAGIC MOUTHWASH MT SCH ×4 (08:33→22:26)
[2020-03-18] MEDS: PEPCID TAB 20 MG PO SCH (08:33)
[2020-03-18] MEDS: MELATONIN PO SCH (08:33)
[2020-03-18] MEDS: ROBITUSSIN DM PO SCH ×4 (08:34→22:27)
[2020-03-18] MEDS: PROTONIX TAB 40 MG PO SCH (08:34)
[2020-03-18] MEDS: PROCARDIA XL PO SCH ×2 (08:34→22:26)
[2020-03-18] MEDS: SYNTHROID 100 mcg TAB PO SCH (08:35)
[2020-03-18] MEDS: THEO-24 CAP 200 MG (24-HR) PO SCH ×2 (08:35→22:27)
[2020-03-18] MEDS: THIAMINE HCL INJ IVP SCH ×2 (08:36→22:25)
[2020-03-18] MEDS: VITAMIN D3 125 mcg (5,000 UNITS) PO SCH (08:36)
[2020-03-18] MEDS: ZyrTEC TAB 10 MG PO SCH (08:36)
[2020-03-18] MEDS: ZINC SULFATE PO SCH (08:36)
[2020-03-18] MEDS: ACCUNEB 1.25 MG NEBULE NEB SCH ×3 (09:40→21:47)
[2020-03-18] MEDS: PULMICORT NEB TX 0.5 MG NEB SCH ×2 (09:40→21:48)
[2020-03-18] MEDS: ULTRAM PO PRN (11:07)
[2020-03-18] MEDS: VISTARIL PO PRN (11:08)
[2020-03-18] MEDS: LEVAQUIN PREMIX IV 750 MG 750 MG/150 ML BAG IV SCH (16:06)
[2020-03-18] MEDS ORDERED: ACCUNEB 1.25 MG NEBULE ONE (20:51)
[2020-03-18] MEDS: SNACK - Diabetic Appropriate PO SCH (22:22)
[2020-03-18] MEDS: ZOLOFT PO SCH (22:24)
[2020-03-18] MEDS: LIPITOR TAB 80 MG PO SCH (22:25)
[2020-03-18] MEDS: SINGULAIR TAB 10 MG PO SCH (22:25)
[2020-03-19] MEDS: ASCORBIC ACID INJ MULTI-DOSE VIAL 1,500 MG in NS 50 ML IV 50 ML IV SCH ×4 (02:08→21:00)
[2020-03-19] MEDS: SOLU-Medrol 125 MG VIAL IVP SCH ×4 (03:50→21:00)
[2020-03-19 05:01] LABS: ABG ALLEN TEST POS; ABG BASE EXCESS -4.6 mmol/L (-2.0-2.0); ABG HCO3 19.2 mmol/L (22-26)
[2020-03-19] MEDS: NEURONTIN CAP 400 MG PO SCH ×3 (06:00→21:00)
[2020-03-19] MEDS: XANAX PO SCH ×3 (06:01→21:00)
[2020-03-19] MEDS: TESSALON PERLES PO SCH ×3 (06:01→21:00)
[2020-03-19] MEDS: HumuLIN R SUBCUT PRN ×3 (06:02→17:20)
[2020-03-19 06:12] LABS: BASOPHILS % (AUTO) 0.3 % (0.2-1.0); HEMATOCRIT 31.7 % (36.0-47.0); HEMOGLOBIN 10.2 g/dL (12.0-16.0); LYMPHOCYTES # (AUTO) 0.1 X10^3/uL (1.3-2.9); LYMPHOCYTES % (AUTO) 1.5 % (21.0-51.0); MEAN CORPUSCULAR HEMOGLOBIN 26.8 pg (27.0-34.0); MEAN CORPUSCULAR HGB CONC 32.1 g/dL (33.0-35.0); MEAN CORPUSCULAR VOLUME 83.3 fL (80.0-100.0); MONOCYTES # (AUTO) 0.2 x10^3/uL (0.3-0.8); MONOCYTES % (AUTO) 4.3 % (0.0-13.0); NEUTROPHILS # (AUTO) 5.1 x10^3/uL (2.2-4.8); NEUTROPHILS % (AUTO) 93.9 % (42.0-75.0); PLATELET COUNT 131 X10^3/uL (150.0-450.0); WHITE BLOOD COUNT 5.4 X10^3/uL (3.6-10.0)
[2020-03-19 06:29] LABS: ALBUMIN 1.3 g/dL (3.4-5.0); CALCIUM 8.1 mg/dL (8.5-10.1); CARBON DIOXIDE 21.5 mmol/L (21-32); COR CA(FOR HYPOALB) 10.3 mg/dL (8.5-10.1); CREATININE 1.42 mg/dL (0.55-1.02); TOTAL PROTEIN 6.2 g/dL (6.4-8.2)
--- NOTE | 2020-03-19 07:10 | RAD ---
HISTORYPNEUMONIASTUDYCHEST, 1 VIEWCOMPARISONOne day prior.TECHNIQUEAP view of the chestFINDINGSCardiac silhouette is borderline in size. Mediastinal contours appear normal. Mild improvement in diffuse bilateral airspace opacities. No definite pleural effusion or pneumothorax.IMPRESSIONMild improvement in bilateral airspace disease.Electronically signed by: Petey Pedroza (Mar 19, 2020 07:08:34)
[2020-03-19 07:55] LABS: BAND NEUTROPHILS % 2 % (0-10); PLATELET MORPHOLOGY COMMENT NORMAL (NORMAL)
[2020-03-19] MEDS: ACCUNEB 1.25 MG NEBULE NEB SCH ×4 (09:12→21:13)
[2020-03-19] MEDS: PULMICORT NEB TX 0.5 MG NEB SCH ×2 (09:12→21:13)
[2020-03-19] MEDS: FORTAZ or TAZICEF VIAL INJ 1 G in NS 100 ML IV + SPIKE MINIBAG* 100 ML IV SCH ×2 (09:31→21:00)
[2020-03-19] MEDS: ZINC SULFATE PO SCH (09:34)
[2020-03-19] MEDS: LOVENOX INJ 120 MG SYR SC SCH ×2 (09:34→21:00)
[2020-03-19] MEDS: PEPCID TAB 20 MG PO SCH (09:34)
[2020-03-19] MEDS: ZyrTEC TAB 10 MG PO SCH (09:34)
[2020-03-19] MEDS: ROBITUSSIN DM PO SCH ×4 (09:35→21:00)
[2020-03-19] MEDS: PROTONIX TAB 40 MG PO SCH (09:35)
[2020-03-19] MEDS: COZAAR PO SCH (09:36)
[2020-03-19] MEDS: COLACE CAP 100 MG PO SCH (09:36)
[2020-03-19] MEDS: THEO-24 CAP 200 MG (24-HR) PO SCH ×2 (09:37→21:00)
[2020-03-19] MEDS: VITAMIN D3 125 mcg (5,000 UNITS) PO SCH (09:37)
[2020-03-19] MEDS: DIFLUCAN PO SCH (09:38)
[2020-03-19] MEDS: KENALOG OINT TOP SCH ×2 (09:38→21:00)
[2020-03-19] MEDS: PROCARDIA XL PO SCH ×2 (09:39→21:00)
[2020-03-19] MEDS: SYNTHROID 100 mcg TAB PO SCH (09:39)
[2020-03-19] MEDS: MAGIC MOUTHWASH MT SCH ×4 (09:39→21:00)
[2020-03-19] MEDS: THIAMINE HCL INJ IVP SCH ×2 (09:40→21:00)
[2020-03-19] MEDS: MELATONIN PO SCH (09:41)
[2020-03-19] MEDS: ULTRAM PO PRN (11:00)
--- NOTE | 2020-03-19 14:54 | PCM.PROG ---
Progress Note - Progress Note for Day of Date of Exam: 03/16/20 - Subjective Subjective: IS BEING TREATED FOR PNEUMONIA DUE TO COVID-19 AND HYPOXIA. SHE HAS A PMH OF DIABETES, DYSLIPIDEMIA, AND HTN. TODAY, SHE IS ALERT AND ORIENTED, SITTING UP IN BED ON MORNING ROUNDS. SHE REPORTS SHORTNESS OF BREATH, COUGH, AND WEAKNESS THIS MORNING. SHE CONTINUES TO DENY SIGNIFICANT IMPROVMENT. SHE IS CURRENTLY ON HEATED HIGH FLOW OXYGEN AT 61 FI02. HER SATURATIONS HAVE BEEN 85-98% THIS MORNING AND THROUGHOUT THE NIGHT. ON EXAMINATION, HEART IS REGULAR IN RATE AND RHYTHM. BILATERAL LUNGS ARE NOTED WITH RALES THROUGHOUT. ABDOMEN IS ROUND, SOFT, AND NON-TENDER WITH NORMAL BOWEL SOUNDS NOTED THROUGHOUT. THERE IS 1+ EDEMA NOTED TO LOWER EXTREMITIES. HER VITALS THIS MORNING ARE: 97.6-78-20-92%-145/76. LABS WERE OBTAINED. ABNORMAL LAB VALUES INCLUDE THE FOLLOWING: WBC 3.2, HGB 10.3, HCT 33.0, PLT COUNT 98, D-DIMER 2.36, CARBON DIOXIDE 20.3, BUN 46, CREATININE 1.58, GLUCOSE 486, CALCIUM 7.8, AST 58, ALK PHOS 259, CRP 59.60, BNP 158, TOTAL PROTEIN 6.2, ALBUMIN 1.5, GLOBULIN 4.7. BLOOD CULTURES ARE PENDING. CHAST XRAY WAS OBTAINED AND REVEALED: UNCHANGED BILATERAL BASILAR PNEUMONIA. SHE IS CURRENTLY RECEIVING NS AT 150 ML/HR, REMDESIVIR 100MG IV DAILY, FORTAZ 1G IV Q12H, LEVAQUIN 750MG IV Q48H, ALBUTEROL NEBS QID, MUCOMYST IN NEBS QID, PULMICORT NEBS BID, ASCORBIC ACID 1500MG IV Q6H, CLONIDINE 0.2MG/HR TD PATCH, LIPITOR 80MG PO HS, TESSALON PERLES 200MG PO TID, ZYRTEC 10MG PO DAILY, TUSSIONEX 5ML PO Q12H PRN, COLACE 100MG PO HS, LOVENOX BID, PEPCID 20MG PO BID, DIFLUCAN 100MG PO DAILY, ROBITUSSIN DM 10ML PO QID, IVERMECTIN- PHARMACY TO DOSSE, MAGIC MOUTHWASH QID, MILK OF MAG BID PRN, MELATONIN 10MG PO HS, SOLU-MEDROL 125MG IV Q6H, SINGULAIR 10MG PO HS, PROTONIX 40MG PO DAILY, XANAX 0.5MG PO TID, GABAPENTIN 800MG PO TID, THIAMINE 200MG IV BID, AND ZINC SULFATE 220MG PO DAILY. WE WILL CONTINUE WITH CURRENT PLAN OF CARE TODAY AND ADD. OTHERWISE, WE WILL FOLLOW UP WITH AM LABS, XRAY, ABG, AND CONTINUE TO MONITOR. TIME SPENT ON CLINICAL ASSESSMENT, REVIEWING LABS AND IMAGING, DECISION MAKING, AND DOCUMENTATION GREATER THAN 75 MINUTES. - Past Medical Family Social History Past Med/Fam/Surg Hx: No changes since H&P Allergies: Allergies No Known Drug Allergies Allergy (Verified 03/12/20 09:37) - Review of Systems ROS: No change since H&P - Vital Signs and I&O's Vital Signs: Temperature 96.7 F Pulse Rate [Apical] 71 Pulse Rate 78 Respiratory Rate 22 Blood Pressure [Left Arm] 165/71 Blood Pressure [Right Arm] 171/77 Blood Pressure 189/87 O2 Sat by Pulse Oximetry 96 Intake and Output: Intake & Output 03/17/20 03/18/20 03/19/20 03/20/20 11:59 11:59 11:59 11:59 Intake Total 4170 / 4170 3134 / 3134 3972 / 3972 Output Total 2475 / 2475 1575 / 1575 1200 / 1200 Balance 1695 / 1695 1559 / 1559 2772 / 2772 - Physical Exam Oriented: Unable to test Eyes: Normal Ear: Normal Nose: Normal Throat: Normal Respiratory: Diminished, Rales Cardiovascular: Normal : Normal Auscultation: Bowel Sounds: Normal Palpation: Normal Tenderness: Normal Skin: Normal Musculoskeletal: Normal Psychiatric: Other (UNABLE TO TEST ) Mood Description: Flat Affect: Normal Speech Pattern: Appropriate - Laboratory and Diagnostics Result Diagrams: 03/19/20 04:20 03/19/20 04:20 Labs: 03/12/20 16:17 Blood Blood Culture - Final 03/12/20 16:10 Blood Blood Culture - Final Laboratory WBC 5.4 X10^3/uL (3.6-10.0) 03/19/20 04:20 RBC 3.80 X10^6/uL (3.5-5.4) 03/19/20 04:20 Hgb 10.2 g/dL (12.0-16.0) L 03/19/20 04:20 Hct 31.7 % (36.0-47.0) L 03/19/20 04:20 MCV 83.3 fL (80.0-100.0) 03/19/20 04:20 MCH 26.8 pg (27.0-34.0) L 03/19/20 04:20 MCHC 32.1 g/dL (33.0-35.0) L 03/19/20 04:20 RDW 15.0 % (11.6-16.5) 03/19/20 04:20 Plt Count 131 X10^3/uL (150.0-450.0) L 03/19/20 04:20 Plt Count Comment Decreased (ADEQUATE) A 03/19/20 04:20 MPV 9.0 fL (7.4-11.0) 03/19/20 04:20 Neut % (Auto) 93.9 % (42.0-75.0) H 03/19/20 04:20 Lymph % (Auto) 1.5 % (21.0-51.0) L 03/19/20 04:20 [place] % (Auto) 4.3 % (0.0-13.0) 03/19/20 04:20 Eos % (Auto) 0.0 % (0.9-2.9) L 03/19/20 04:20 Baso % (Auto) 0.3 % (0.2-1.0) 03/19/20 04:20 Neut # (Auto) 5.1 x10^3/uL (2.2-4.8) H 03/19/20 04:20 Lymph # (Auto) 0.1 X10^3/uL (1.3-2.9) L 03/19/20 04:20 [place] # (Auto) 0.2 x10^3/uL (0.3-0.8) L 03/19/20 04:20 Eos # (Auto) 0.0 x10^3/uL (0.0-0.2) 03/19/20 04:20 Baso # (Auto) 0.0 X10^3/uL (0.0-0.1) 03/19/20 04:20 Absolute Nucleated RBC 0.1 /100WBC 03/19/20 04:20 Total Counted 100 03/19/20 04:20 Neutrophils % (Manual) 95 % (39-76) H 03/19/20 04:20 Band Neutrophils % 2 % (0-10) 03/19/20 04:20 Lymphocytes % (Manual) Not Reportable 03/19/20 04:20 Monocytes % (Manual) 3 % (4-9) L 03/19/20 04:20 Plt Morphology Comment Normal (NORMAL) 03/19/20 04:20 RBC Morphology Normal (NORMAL) 03/19/20 04:20 ESR 89 MM/HOUR (0-20) H 03/12/20 09:45 PT 12.5 SECONDS (11.8-14.3) 03/12/20 09:45 INR Target Range - 03/12/20 09:45 INR 0.96 (0.8-1.3) 03/12/20 09:45 APTT 27.8 SECONDS (22.9-36.5) 03/12/20 09:45 PTT Comment - 03/12/20 09:45 D-Dimer 1.40 ug/ml (0.0-0.57) H* 03/19/20 04:20 Sample Site Lr 03/19/20 05:00 ABG pH 7.400 (7.35-7.45) 03/19/20 05:00 ABG pCO2 31.0 mmHg (35.0-45.0) L 03/19/20 05:00 ABG pO2 63.0 mmHg (80.0-100.0) L 03/19/20 05:00 ABG HCO3 19.2 mmol/L (22-26) L 03/19/20 05:00 ABG O2 Saturation 92.0 % (90-100) 03/19/20 05:00 ABG Base Excess -4.6 mmol/L (-2.0-2.0) L 03/19/20 05:00 Red Test Pos 03/19/20 05:00 A-a Gradient 504.0 mmHg 03/19/20 05:00 FiO2 85.0 03/19/20 05:00 Blood Gas Comments David well 03/19/20 05:00 Sodium 139 mmol/L (136-145) 03/19/20 04:20 Corrected Sodium 145 mmol/L (136-145) 03/19/20 04:20 Potassium 4.3 mmol/L (3.5-5.1) 03/19/20 04:20 Chloride 107 mmol/L (98-107) 03/19/20 04:20 Carbon Dioxide 21.5 mmol/L (21-32) 03/19/20 04:20 BUN 45 mg/dL (7-18) H 03/19/20 04:20 Creatinine 1.42 mg/dL (0.55-1.02) H 03/19/20 04:20 Est GFR (MDRD) Af Amer 48 (>60) L 03/19/20 04:20 Est GFR (MDRD) Non-Af 39 (>60) L 03/19/20 04:20 Glucose 335 mg/dL (65-99) H 03/19/20 04:20 POC Glucose (mg/dL) 289 mg/dL (65-99) H 03/19/20 11:24 Lactic Acid 7.9 mmol/L (0.4-2.0) H 03/12/20 09:45 Calcium 8.1 mg/dL (8.5-10.1) L 03/19/20 04:20 Corrected Calcium 10.3 mg/dL (8.5-10.1) H 03/19/20 04:20 Magnesium 2.1 mg/dL (1.7-2.9) 03/17/20 07:32 Ferritin 141 ng/mL (8-252) 03/19/20 04:20 Total Bilirubin 0.20 mg/dL (0.2-1.0) 03/19/20 04:20 AST 56 Units/L (15-37) H 03/19/20 04:20 ALT 27 Units/L (12-78) 03/19/20 04:20 Alkaline Phosphatase 285 Units/L (46-116) H 03/19/20 04:20 Creatine Kinase 57 Units/L (26-192) 03/12/20 16:10 CK-MB (CK-2) 1.6 ng/mL (0-4.0) 03/12/20 16:10 CK/CKMB % Calc 2.8 % (<4) 03/12/20 16:10 Troponin I 0.18 ng/mL (0-1.5) 03/12/20 16:10 C-Reactive Protein 21.50 mg/L (0-3.0) H 03/19/20 04:20 B-Natriuretic Peptide 57.3 pg/mL (0-79) 03/19/20 04:20 Total Protein 6.2 g/dL (6.4-8.2) L 03/19/20 04:20 Albumin 1.3 g/dL (3.4-5.0) L 03/19/20 04:20 Globulin 4.9 g/dL (2.5-4.5) H 03/19/20 04:20 Albumin/Globulin Ratio 0.3 Ratio (1.1-2.1) L 03/19/20 04:20 Specimen Type Clean catch urine 03/12/20 09:45 Urine Color Yellow (YELLOW) 03/12/20 09:45 Urine Appearance Slightly hazy (CLEAR) 03/12/20 09:45 Urine pH 5.0 (5.0 - 8.0) 03/12/20 09:45 Ur Specific [place] 1.025 (1.000-1.030) 03/12/20 09:45 Urine Protein 4+ (NEGATIVE) 03/12/20 09:45 Urine Glucose (UA) Negative (NEGATIVE) 03/12/20 09:45 Urine Ketones Negative (NEGATIVE) 03/12/20 09:45 Urine Occult Blood 2+ (NEGATIVE) 03/12/20 09:45 Urine Nitrite Negative (NEGATIVE) 03/12/20 09:45 Urine Bilirubin Negative (NEGATIVE) 03/12/20 09:45 Urine Urobilinogen Normal (NORMAL) 03/12/20 09:45 Ur Leukocyte Esterase Negative (NEGATIVE) 03/12/20 09:45 Urine RBC 3-5 /HPF (0-3) A 03/12/20 09:45 Urine WBC 0-2 /HPF (0-5) 03/12/20 09:45 Ur Squamous Epith Cells Few /HPF (NEGATIVE) 03/12/20 09:45 Amorphous Sediment Trace /HPF (NEGATIVE) 03/12/20 09:45 Urine Bacteria Trace /HPF (NEGATIVE) 03/12/20 09:45 Hyaline Casts Few /LPF (NEGATIVE) 03/12/20 09:45 Ur Culture Indicated? No/not indicated 03/12/20 09:45 Acetone, Semi-Quant Negative (NEGATIVE) 03/18/20 16:30 SARS CoV-2 RNA Rapid FRANCISCO JAVIER Positive (NEGATIVE) A 03/12/20 10:23 Blood Type A POSITIVE 03/19/20 09:00 - Plan (1) Pneumonia due to COVID-19 virus Status: Acute Plan: HEATED HIGH FLOW OXYGEN, NS AT 150 ML/HR, REMDESIVIR 100MG IV DAILY, FORTAZ 1G IV Q12H, LEVAQUIN 750MG IV Q48H, ALBUTEROL NEBS QID, MUCOMYST IN NEBS QID, PULMICORT NEBS BID, ASCORBIC ACID 1500MG IV Q6H, CLONIDINE 0.2MG/HR TD PATCH, LIPITOR 80MG PO HS, TESSALON PERLES 200MG PO TID, ZYRTEC 10MG PO DAILY, TUSSIONEX 5ML PO Q12H PRN, COLACE 100MG PO HS, LOVENOX BID, PEPCID 20MG PO BID, DIFLUCAN 100MG PO DAILY, ROBITUSSIN DM 10ML PO QID, IVERMECTIN- PHARMACY TO DOSE, MAGIC MOUTHWASH QID, MILK OF MAG BID PRN, MELATONIN 10MG PO HS, SOLU- MEDROL 125MG IV Q6H, SINGULAIR 10MG PO HS, PROTONIX 40MG PO DAILY, THIAMINE 200MG IV BID, AND ZINC SULFATE 220MG PO DAILY (2) Hypoxia Status: Acute (3) Acute respiratory failure Status: Acute Qualifiers: Respiratory failure complication: hypoxia Qualified Code(s): J96.01 - Acute respiratory failure with hypoxia
--- NOTE | 2020-03-19 17:21 | PCM.PROG ---
Progress Note - Progress Note for Day of Date of Exam: 03/19/20 - Subjective Subjective: IS BEING TREATED FOR PNEUMONIA DUE TO COVID-19 AND HYPOXIA. SHE HAS A PMH OF DIABETES, DYSLIPIDEMIA, AND HTN. TODAY, SHE IS ALERT AND ORIENTED, SITTING UP IN BED ON MORNING ROUNDS. SHE REPORTS SHORTNESS OF BREATH, COUGH, AND WEAKNESS THIS MORNING. SHE CONTINUES TO DENY SIGNIFICANT IMPROVMENT. SHE IS CURRENTLY ON THE BIPAP. HER SATURATIONS HAVE BEEN 91-96% THIS MORNING AND THROUGHOUT THE NIGHT. ON EXAMINATION, HEART IS REGULAR IN RATE AND RHYTHM. BILATERAL LUNGS ARE NOTED WITH RALES THROUGHOUT. ABDOMEN IS ROUND, SOFT, AND NON-TENDER WITH NORMAL BOWEL SOUNDS NOTED THROUGHOUT. THERE IS 1+ EDEMA NOTED TO LOWER EXTREMITIES. HER VITALS THIS MORNING ARE: 96.7-71-22-95%BIPAP-172/77. LABS WERE OBTAINED. ABNORMAL LAB VALUES INCLUDE THE FOLLOWING: HGB 10.2, HCT 31.7, PLT COUNT 131, D-DIMER 1.40, BUN 45, CREATININE 1.42, GLUCOSE 335, CALCIUM 8.1, AST 56, ALK PHOS 285, CRP 21.50, TOTAL PROTEIN 6.2, ALBUMIN 1.3, GLOBULIN 4.9. ABG REVEALED: PH 7.400, PC02 31, P02 63, HC03 19.2, 02 SAT 92, A-A GRADIENT 504, FI02 85.0. CHEST XRAY WAS OBTAINED AND REVEALED: MILD IMPROVEMENT IN BILATERAL AIRSPACE DISEASE. SHE IS CURRENTLY RECEIVING NS AT 150 ML/HR, REMDESIVIR 100MG IV DAILY, APRESOLINE 10MG IV Q4H PRN, FORTAZ 1G IV Q12H, LEVAQUIN 750MG IV Q48H, ALBUTEROL NEBS QID, MUCOMYST IN NEBS QID, PULMICORT NEBS BID, ASCORBIC ACID 1500MG IV Q6H, CLONIDINE 0.2MG/HR TD PATCH, LIPITOR 80MG PO HS, TESSALON PERLES 200MG PO TID, ZYRTEC 10MG PO DAILY, TUSSIONEX 5ML PO Q12H PRN, COLACE 100MG PO HS, LOVENOX BID, PEPCID 20MG PO BID, DIFLUCAN 100MG PO DAILY, ROBITUSSIN DM 10ML PO QID, IVERMECTIN- PHARMACY TO DOSSE, MAGIC MOUTHWASH QID, MILK OF MAG BID PRN, MELATONIN 10MG PO HS, SOLU-MEDROL 125MG IV Q6H, SINGULAIR 10MG PO HS, PROTONIX 40MG PO DAILY, XANAX 0.5MG PO TID, GABAPENTIN 800MG PO TID, THIAMINE 200MG IV BID, HUMULIN R SLIDING SCALE, AND ZINC SULFATE 220MG PO DAILY. WE WILL CONTINUE WITH CURRENT PLAN OF CARE TODAY. OTHERWISE, WE WILL FOLLOW UP WITH AM LABS, XRAY, ABG, AND CONTINUE TO MONITOR. TIME SPENT ON CLINICAL ASSESSMENT, REVIEWING LABS AND IMAGING, DECISION MAKING, AND DOCUMENTATION GREATER THAN 75 MINUTES. - Past Medical Family Social History Past Med/Fam/Surg Hx: No changes since H&P Allergies: Allergies No Known Drug Allergies Allergy (Verified 03/12/20 09:37) - Review of Systems ROS: No change since H&P - Vital Signs and I&O's Vital Signs: Temperature 97.2 F Pulse Rate [Apical] 85 Pulse Rate 76 Respiratory Rate 22 Blood Pressure [Left Arm] 148/72 Blood Pressure [Right Arm] 171/77 Blood Pressure 189/87 O2 Sat by Pulse Oximetry 98 Intake and Output: Intake & Output 03/17/20 03/18/20 03/19/20 03/20/20 11:59 11:59 11:59 11:59 Intake Total 4170 / 4170 3134 / 3134 3972 / 3972 660 / 660 Output Total 2475 / 2475 1575 / 1575 1200 / 1200 600 / 600 Balance 1695 / 1695 1559 / 1559 2772 / 2772 60 / 60 - Physical Exam Oriented: Unable to test Eyes: Normal Ear: Normal Nose: Normal Throat: Normal Respiratory: Diminished, Rales Cardiovascular: Normal : Normal Auscultation: Bowel Sounds: Normal Palpation: Normal Tenderness: Normal Skin: Normal Musculoskeletal: Normal Psychiatric: Other (UNABLE TO TEST ) Mood Description: Flat Affect: Normal Speech Pattern: Appropriate - Laboratory and Diagnostics Result Diagrams: 03/19/20 04:20 03/19/20 04:20 Labs: 03/12/20 16:17 Blood Blood Culture - Final 03/12/20 16:10 Blood Blood Culture - Final Laboratory WBC 5.4 X10^3/uL (3.6-10.0) 03/19/20 04:20 RBC 3.80 X10^6/uL (3.5-5.4) 03/19/20 04:20 Hgb 10.2 g/dL (12.0-16.0) L 03/19/20 04:20 Hct 31.7 % (36.0-47.0) L 03/19/20 04:20 MCV 83.3 fL (80.0-100.0) 03/19/20 04:20 MCH 26.8 pg (27.0-34.0) L 03/19/20 04:20 MCHC 32.1 g/dL (33.0-35.0) L 03/19/20 04:20 RDW 15.0 % (11.6-16.5) 03/19/20 04:20 Plt Count 131 X10^3/uL (150.0-450.0) L 03/19/20 04:20 Plt Count Comment Decreased (ADEQUATE) A 03/19/20 04:20 MPV 9.0 fL (7.4-11.0) 03/19/20 04:20 Neut % (Auto) 93.9 % (42.0-75.0) H 03/19/20 04:20 Lymph % (Auto) 1.5 % (21.0-51.0) L 03/19/20 04:20 [place] % (Auto) 4.3 % (0.0-13.0) 03/19/20 04:20 Eos % (Auto) 0.0 % (0.9-2.9) L 03/19/20 04:20 Baso % (Auto) 0.3 % (0.2-1.0) 03/19/20 04:20 Neut # (Auto) 5.1 x10^3/uL (2.2-4.8) H 03/19/20 04:20 Lymph # (Auto) 0.1 X10^3/uL (1.3-2.9) L 03/19/20 04:20 [place] # (Auto) 0.2 x10^3/uL (0.3-0.8) L 03/19/20 04:20 Eos # (Auto) 0.0 x10^3/uL (0.0-0.2) 03/19/20 04:20 Baso # (Auto) 0.0 X10^3/uL (0.0-0.1) 03/19/20 04:20 Absolute Nucleated RBC 0.1 /100WBC 03/19/20 04:20 Total Counted 100 03/19/20 04:20 Neutrophils % (Manual) 95 % (39-76) H 03/19/20 04:20 Band Neutrophils % 2 % (0-10) 03/19/20 04:20 Lymphocytes % (Manual) Not Reportable 03/19/20 04:20 Monocytes % (Manual) 3 % (4-9) L 03/19/20 04:20 Plt Morphology Comment Normal (NORMAL) 03/19/20 04:20 RBC Morphology Normal (NORMAL) 03/19/20 04:20 ESR 89 MM/HOUR (0-20) H 03/12/20 09:45 PT 12.5 SECONDS (11.8-14.3) 03/12/20 09:45 INR Target Range - 03/12/20 09:45 INR 0.96 (0.8-1.3) 03/12/20 09:45 APTT 27.8 SECONDS (22.9-36.5) 03/12/20 09:45 PTT Comment - 03/12/20 09:45 D-Dimer 1.40 ug/ml (0.0-0.57) H* 03/19/20 04:20 Sample Site Lr 03/19/20 05:00 ABG pH 7.400 (7.35-7.45) 03/19/20 05:00 ABG pCO2 31.0 mmHg (35.0-45.0) L 03/19/20 05:00 ABG pO2 63.0 mmHg (80.0-100.0) L 03/19/20 05:00 ABG HCO3 19.2 mmol/L (22-26) L 03/19/20 05:00 ABG O2 Saturation 92.0 % (90-100) 03/19/20 05:00 ABG Base Excess -4.6 mmol/L (-2.0-2.0) L 03/19/20 05:00 Red Test Pos 03/19/20 05:00 A-a Gradient 504.0 mmHg 03/19/20 05:00 FiO2 85.0 03/19/20 05:00 Blood Gas Comments David well sw 03/19/20 05:00 Sodium 139 mmol/L (136-145) 03/19/20 04:20 Corrected Sodium 145 mmol/L (136-145) 03/19/20 04:20 Potassium 4.3 mmol/L (3.5-5.1) 03/19/20 04:20 Chloride 107 mmol/L (98-107) 03/19/20 04:20 Carbon Dioxide 21.5 mmol/L (21-32) 03/19/20 04:20 BUN 45 mg/dL (7-18) H 03/19/20 04:20 Creatinine 1.42 mg/dL (0.55-1.02) H 03/19/20 04:20 Est GFR (MDRD) Af Amer 48 (>60) L 03/19/20 04:20 Est GFR (MDRD) Non-Af 39 (>60) L 03/19/20 04:20 Glucose 335 mg/dL (65-99) H 03/19/20 04:20 POC Glucose (mg/dL) 302 mg/dL (65-99) H 03/19/20 17:06 Lactic Acid 7.9 mmol/L (0.4-2.0) H 03/12/20 09:45 Calcium 8.1 mg/dL (8.5-10.1) L 03/19/20 04:20 Corrected Calcium 10.3 mg/dL (8.5-10.1) H 03/19/20 04:20 Magnesium 2.1 mg/dL (1.7-2.9) 03/17/20 07:32 Ferritin 141 ng/mL (8-252) 03/19/20 04:20 Total Bilirubin 0.20 mg/dL (0.2-1.0) 03/19/20 04:20 AST 56 Units/L (15-37) H 03/19/20 04:20 ALT 27 Units/L (12-78) 03/19/20 04:20 Alkaline Phosphatase 285 Units/L (46-116) H 03/19/20 04:20 Creatine Kinase 57 Units/L (26-192) 03/12/20 16:10 CK-MB (CK-2) 1.6 ng/mL (0-4.0) 03/12/20 16:10 CK/CKMB % Calc 2.8 % (<4) 03/12/20 16:10 Troponin I 0.18 ng/mL (0-1.5) 03/12/20 16:10 C-Reactive Protein 21.50 mg/L (0-3.0) H 03/19/20 04:20 B-Natriuretic Peptide 57.3 pg/mL (0-79) 03/19/20 04:20 Total Protein 6.2 g/dL (6.4-8.2) L 03/19/20 04:20 Albumin 1.3 g/dL (3.4-5.0) L 03/19/20 04:20 Globulin 4.9 g/dL (2.5-4.5) H 03/19/20 04:20 Albumin/Globulin Ratio 0.3 Ratio (1.1-2.1) L 03/19/20 04:20 Specimen Type Clean catch urine 03/12/20 09:45 Urine Color Yellow (YELLOW) 03/12/20 09:45 Urine Appearance Slightly hazy (CLEAR) 03/12/20 09:45 Urine pH 5.0 (5.0 - 8.0) 03/12/20 09:45 Ur Specific [place] 1.025 (1.000-1.030) 03/12/20 09:45 Urine Protein 4+ (NEGATIVE) 03/12/20 09:45 Urine Glucose (UA) Negative (NEGATIVE) 03/12/20 09:45 Urine Ketones Negative (NEGATIVE) 03/12/20 09:45 Urine Occult Blood 2+ (NEGATIVE) 03/12/20 09:45 Urine Nitrite Negative (NEGATIVE) 03/12/20 09:45 Urine Bilirubin Negative (NEGATIVE) 03/12/20 09:45 Urine Urobilinogen Normal (NORMAL) 03/12/20 09:45 Ur Leukocyte Esterase Negative (NEGATIVE) 03/12/20 09:45 Urine RBC 3-5 /HPF (0-3) A 03/12/20 09:45 Urine WBC 0-2 /HPF (0-5) 03/12/20 09:45 Ur Squamous Epith Cells Few /HPF (NEGATIVE) 03/12/20 09:45 Amorphous Sediment Trace /HPF (NEGATIVE) 03/12/20 09:45 Urine Bacteria Trace /HPF (NEGATIVE) 03/12/20 09:45 Hyaline Casts Few /LPF (NEGATIVE) 03/12/20 09:45 Ur Culture Indicated? No/not indicated 03/12/20 09:45 Acetone, Semi-Quant Negative (NEGATIVE) 03/18/20 16:30 SARS CoV-2 RNA Rapid FRANCISCO JAVIER Positive (NEGATIVE) A 03/12/20 10:23 Blood Type A POSITIVE 03/19/20 09:00 - Plan (1) Pneumonia due to COVID-19 virus Status: Acute Plan: BIPAP, NS AT 150 ML/HR, REMDESIVIR 100MG IV DAILY, FORTAZ 1G IV Q12H, LEVAQUIN 750MG IV Q48H, ALBUTEROL NEBS QID, MUCOMYST IN NEBS QID, PULMICORT NEBS BID, ASCORBIC ACID 1500MG IV Q6H, CLONIDINE 0.2MG/HR TD PATCH, LIPITOR 80MG PO HS, TESSALON PERLES 200MG PO TID, ZYRTEC 10MG PO DAILY, TUSSIONEX 5ML PO Q12H PRN, COLACE 100MG PO HS, LOVENOX BID, PEPCID 20MG PO BID, DIFLUCAN 100MG PO DAILY, ROBITUSSIN DM 10ML PO QID, IVERMECTIN- PHARMACY TO DOSE, MAGIC MOUTHWASH QID, MILK OF MAG BID PRN, MELATONIN 10MG PO HS, SOLU-MEDROL 125MG IV Q6H, SI NGULAIR 10MG PO HS, PROTONIX 40MG PO DAILY, THIAMINE 200MG IV BID, AND ZINC SULFATE 220MG PO DAILY (2) Hypoxia Status: Acute (3) Acute respiratory failure Status: Acute Qualifiers: Respiratory failure complication: hypoxia Qualified Code(s): J96.01 - Acute respiratory failure with hypoxia
[2020-03-19] MEDS: LIPITOR TAB 80 MG PO SCH (21:00)
[2020-03-19] MEDS: SINGULAIR TAB 10 MG PO SCH (21:00)
[2020-03-19] MEDS: VISTARIL PO PRN (21:00)
[2020-03-19] MEDS: ZOLOFT PO SCH (21:00)
[2020-03-20] MEDS: NS 1000 ML 1,000 ML IV SCH ×3 (00:37→09:26)
[2020-03-20] MEDS: SNACK - Diabetic Appropriate PO SCH ×2 (00:40→23:56)
[2020-03-20 04:38] LABS: ABG ALLEN TEST POS; ABG BASE EXCESS -4.3 mmol/L (-2.0-2.0); ABG HCO3 20.1 mmol/L (22-26)
[2020-03-20] MEDS: ASCORBIC ACID INJ MULTI-DOSE VIAL 1,500 MG in NS 50 ML IV 50 ML IV SCH ×4 (04:53→21:00)
[2020-03-20 05:42] LABS: BASOPHILS % (AUTO) 0.1 % (0.2-1.0); HEMATOCRIT 32.2 % (36.0-47.0); HEMOGLOBIN 10.2 g/dL (12.0-16.0); LYMPHOCYTES # (AUTO) 0.1 X10^3/uL (1.3-2.9); LYMPHOCYTES % (AUTO) 1.7 % (21.0-51.0); MEAN CORPUSCULAR HEMOGLOBIN 26.3 pg (27.0-34.0); MEAN CORPUSCULAR HGB CONC 31.6 g/dL (33.0-35.0); MEAN CORPUSCULAR VOLUME 83.2 fL (80.0-100.0); MEAN PLATELET VOLUME 8.9 fL (7.4-11.0); MONOCYTES # (AUTO) 0.3 x10^3/uL (0.3-0.8); MONOCYTES % (AUTO) 4.3 % (0.0-13.0); NEUTROPHILS # (AUTO) 6.2 x10^3/uL (2.2-4.8); NEUTROPHILS % (AUTO) 93.9 % (42.0-75.0); PLATELET COUNT 140 X10^3/uL (150.0-450.0); RED BLOOD COUNT 3.86 X10^6/uL (3.5-5.4); WHITE BLOOD COUNT 6.6 X10^3/uL (3.6-10.0)
[2020-03-20 05:54] LABS: ALBUMIN 1.3 g/dL (3.4-5.0); CALCIUM 7.9 mg/dL (8.5-10.1); CARBON DIOXIDE 21.1 mmol/L (21-32); COR CA(FOR HYPOALB) 10.1 mg/dL (8.5-10.1); CREATININE 1.33 mg/dL (0.55-1.02); TOTAL PROTEIN 6.2 g/dL (6.4-8.2)
[2020-03-20] MEDS: XANAX PO SCH ×3 (06:00→21:00)
[2020-03-20] MEDS: TESSALON PERLES PO SCH ×3 (06:01→21:00)
--- NOTE | 2020-03-20 06:21 | RAD ---
HISTORYSOBSTUDYCHEST, 1 VIEWCOMPARISONOne day prior.TECHNIQUEAP view of the chestFINDINGSThe cardiac silhouette is borderline in size. Mediastinal contours appear stable. Patient is rotated limiting evaluation. Stable appearance of diffuse bilateral airspace opacities. No definite pleural effusion or pneumothorax.IMPRESSIONNo significant change.Electronically signed by: Petey Pedroza (Mar 20, 2020 06:19:26)
[2020-03-20] MEDS: SOLU-Medrol 125 MG VIAL IVP SCH ×4 (06:48→21:00)
[2020-03-20 06:49] LABS: BAND NEUTROPHILS % 3 % (0-10); PLATELET MORPHOLOGY COMMENT NORMAL (NORMAL)
[2020-03-20] MEDS: HumuLIN R SUBCUT PRN ×3 (06:49→21:00)
[2020-03-20] MEDS: NEURONTIN CAP 400 MG PO SCH ×3 (07:00→21:00)
[2020-03-20] MEDS: ACCUNEB 1.25 MG NEBULE NEB SCH ×4 (08:20→21:01)
[2020-03-20] MEDS: PULMICORT NEB TX 0.5 MG NEB SCH ×2 (08:20→21:01)
[2020-03-20] MEDS: COLACE CAP 100 MG PO SCH (09:15)
[2020-03-20] MEDS: ZyrTEC TAB 10 MG PO SCH (09:16)
[2020-03-20] MEDS: VITAMIN D3 125 mcg (5,000 UNITS) PO SCH (09:18)
[2020-03-20] MEDS: ZINC SULFATE PO SCH (09:18)
[2020-03-20] MEDS: THEO-24 CAP 200 MG (24-HR) PO SCH ×2 (09:19→21:00)
[2020-03-20] MEDS: SYNTHROID 100 mcg TAB PO SCH (09:19)
[2020-03-20] MEDS: THIAMINE HCL INJ IVP SCH ×2 (09:19→21:00)
[2020-03-20] MEDS: ROBITUSSIN DM PO SCH ×4 (09:20→21:00)
[2020-03-20] MEDS: PROCARDIA XL PO SCH ×2 (09:20→21:00)
[2020-03-20] MEDS: PROTONIX TAB 40 MG PO SCH (09:20)
[2020-03-20] MEDS: MAGIC MOUTHWASH MT SCH ×4 (09:21→21:00)
[2020-03-20] MEDS: PEPCID TAB 20 MG PO SCH (09:21)
[2020-03-20] MEDS: KENALOG OINT TOP SCH ×2 (09:21→23:57)
[2020-03-20] MEDS: DIFLUCAN PO SCH (09:22)
[2020-03-20] MEDS: COZAAR PO SCH (09:23)
[2020-03-20] MEDS: LOVENOX INJ 120 MG SYR SC SCH ×2 (09:25→21:00)
[2020-03-20] MEDS: CATAPRES-TTS-2 TD SCH ×2 (09:26→11:29)
[2020-03-20] MEDS: ULTRAM PO PRN (11:51)
[2020-03-20] MEDS: FORTAZ or TAZICEF VIAL INJ 1 G in NS 100 ML IV + SPIKE MINIBAG* 100 ML IV SCH ×2 (11:51→21:00)
[2020-03-20] MEDS: VISTARIL PO PRN (11:52)
[2020-03-20] MEDS: LEVAQUIN PREMIX IV 750 MG 750 MG/150 ML BAG IV SCH (17:23)
[2020-03-20] MEDS: SINGULAIR TAB 10 MG PO SCH (21:00)
[2020-03-20] MEDS: MELATONIN PO SCH (21:00)
[2020-03-20] MEDS: ZOLOFT PO SCH (21:00)
[2020-03-20] MEDS: LIPITOR TAB 80 MG PO SCH (21:00)
--- NOTE | 2020-03-20 21:10 | PCM.PROG ---
Progress Note - Progress Note for Day of Date of Exam: 03/20/20 - Subjective Subjective: IS BEING TREATED FOR PNEUMONIA DUE TO COVID-19 AND HYPOXIA. SHE HAS A PMH OF DIABETES, DYSLIPIDEMIA, AND HTN. TODAY, SHE IS ALERT AND ORIENTED, SITTING UP IN BED ON MORNING ROUNDS. SHE REPORTS SHORTNESS OF BREATH, COUGH, AND WEAKNESS THIS MORNING. SHE REPORTS SLIGHT IMPROVEMENT TODAY. SHE IS CURRENTLY ON THE BIPAP. HER SATURATIONS HAVE BEEN 94-98% THIS MORNING AND THROUGHOUT THE NIGHT. ON EXAMINATION, HEART IS REGULAR IN RATE AND RHYTHM. BILATERAL LUNGS CONTINUE WITH RALES THROUGHOUT. ABDOMEN IS ROUND, SOFT, AND NON- TENDER WITH NORMAL BOWEL SOUNDS NOTED THROUGHOUT. THERE IS TRACE EDEMA NOTED TO LOWER EXTREMITIES. HER VITALS THIS MORNING ARE: 97.7-88-20-97%-141/65. LABS WERE OBTAINED. ABNORMAL LAB VALUES INCLUDE THE FOLLOWING: HGB 10.2, HCT 32.2, PLT COUNT 140, D-DIMER 0.83, BUN 42, CREATININE 1.33, GLUCOSE 297, CALCIUM 7.9, AST 51, ALK PHOS 277, CRP 12.30, TOTAL PROTEIN 6.2, ALBUMIN 1.3, GLOBULIN 4.9. ABG REVEALED: PH 7.400, PC02 31, P02 63, HC03 19.2, 02 SAT 92, A-A GRADIENT 504, FI02 85.0. CHEST XRAY WAS OBTAINED AND REVEALED: The cardiac silhouette is borderline in size. Mediastinal contours appear stable. Patient is rotated limiting evaluation. Stable appearance of diffuse bilateral airspace opacities. No definite pleural effusion or pneumothorax. SHE IS CURRENTLY RECEIVING NS AT 75 ML/HR, APRESOLINE 10MG IV Q4H PRN, FORTAZ 1G IV Q12H, LEVAQUIN 750MG IV Q48H, ALBUTEROL NEBS QID, MUCOMYST IN NEBS QID, PULMICORT NEBS BID, ASCORBIC ACID 1500MG IV Q6H, CLONIDINE 0.2MG/HR TD PATCH, LIPITOR 80MG PO HS, TESSALON PERLES 200MG PO TID, ZYRTEC 10MG PO DAILY, TUSSIONEX 5ML PO Q12H PRN, COLACE 100MG PO HS, LOVENOX BID, PEPCID 20MG PO BID, DIFLUCAN 100MG PO DAILY, ROBITUSSIN DM 10ML PO QID, IVERMECTIN- PHARMACY TO DOSSE, MAGIC MOUTHWASH QID, MILK OF MAG BID PRN, MELATONIN 10MG PO HS, SOLU-MEDROL 125MG IV Q6H, SINGULAIR 10MG PO HS, PROTONIX 40MG PO DAILY, XANAX 0.5MG PO TID, GABAPENTIN 800MG PO TID, THIAMINE 200MG IV BID, HUMULIN R SLIDING SCALE, AND ZINC SULFATE 220MG PO DAILY. WE WILL CONTINUE WITH CURRENT PLAN OF CARE TODAY. OTHERWISE, WE WILL FOLLOW UP WITH AM LABS, XRAY, ABG, AND CONTINUE TO MONITOR. TIME SPENT ON CLINICAL ASSESSMENT, REVIEWING LABS AND IMAGING, DECISION MAKING, AND DOCUMENTATION GREATER THAN 75 MINUTES. - Past Medical Family Social History Past Med/Fam/Surg Hx: No changes since H&P Allergies: Allergies No Known Drug Allergies Allergy (Verified 03/12/20 09:37) - Review of Systems ROS: No change since H&P - Vital Signs and I&O's Vital Signs: Temperature 98.9 F Pulse Rate [Apical] 83 Pulse Rate 78 Respiratory Rate 24 Blood Pressure [Left Arm] 180/74 Blood Pressure [Right Arm] 171/77 Blood Pressure 189/87 O2 Sat by Pulse Oximetry 94 Intake and Output: Intake & Output 03/18/20 03/19/20 03/20/20 03/21/20 11:59 11:59 11:59 11:59 Intake Total 3134 / 3134 3972 / 3972 3519 / 3519 1846 / 1846 Output Total 1575 / 1575 1200 / 1200 1575 / 1575 550 / 550 Balance 1559 / 1559 2772 / 2772 1944 / 1944 1296 / 1296 - Physical Exam Oriented: Person Eyes: Normal Ear: Normal Nose: Normal Throat: Normal Respiratory: Diminished, Rales Cardiovascular: Normal : Normal Auscultation: Bowel Sounds: Normal Palpation: Normal Tenderness: Normal Skin: Normal Musculoskeletal: Normal Psychiatric: Other (UNABLE TO TEST ) Mood Description: Flat Affect: Normal Speech Pattern: Appropriate - Laboratory and Diagnostics Result Diagrams: 03/20/20 04:05 03/20/20 04:05 Labs: 03/12/20 16:17 Blood Blood Culture - Final 03/12/20 16:10 Blood Blood Culture - Final Laboratory WBC 6.6 X10^3/uL (3.6-10.0) 03/20/20 04:05 RBC 3.86 X10^6/uL (3.5-5.4) 03/20/20 04:05 Hgb 10.2 g/dL (12.0-16.0) L 03/20/20 04:05 Hct 32.2 % (36.0-47.0) L 03/20/20 04:05 MCV 83.2 fL (80.0-100.0) 03/20/20 04:05 MCH 26.3 pg (27.0-34.0) L 03/20/20 04:05 MCHC 31.6 g/dL (33.0-35.0) L 03/20/20 04:05 RDW 15.0 % (11.6-16.5) 03/20/20 04:05 Plt Count 140 X10^3/uL (150.0-450.0) L 03/20/20 04:05 Plt Count Comment Decreased (ADEQUATE) A 03/20/20 04:05 MPV 8.9 fL (7.4-11.0) 03/20/20 04:05 Neut % (Auto) 93.9 % (42.0-75.0) H 03/20/20 04:05 Lymph % (Auto) 1.7 % (21.0-51.0) L 03/20/20 04:05 [place] % (Auto) 4.3 % (0.0-13.0) 03/20/20 04:05 Eos % (Auto) 0.0 % (0.9-2.9) L 03/20/20 04:05 Baso % (Auto) 0.1 % (0.2-1.0) L 03/20/20 04:05 Neut # (Auto) 6.2 x10^3/uL (2.2-4.8) H 03/20/20 04:05 Lymph # (Auto) 0.1 X10^3/uL (1.3-2.9) L 03/20/20 04:05 [place] # (Auto) 0.3 x10^3/uL (0.3-0.8) 03/20/20 04:05 Eos # (Auto) 0.0 x10^3/uL (0.0-0.2) 03/20/20 04:05 Baso # (Auto) 0.0 X10^3/uL (0.0-0.1) 03/20/20 04:05 Absolute Nucleated RBC 0.1 /100WBC 03/20/20 04:05 Total Counted 100 03/20/20 04:05 Neutrophils % (Manual) 92 % (39-76) H 03/20/20 04:05 Band Neutrophils % 3 % (0-10) 03/20/20 04:05 Lymphocytes % (Manual) 2 % (13-43) L 03/20/20 04:05 Monocytes % (Manual) 3 % (4-9) L 03/20/20 04:05 Plt Morphology Comment Normal (NORMAL) 03/20/20 04:05 RBC Morphology Normal (NORMAL) 03/20/20 04:05 ESR 89 MM/HOUR (0-20) H 03/12/20 09:45 PT 12.5 SECONDS (11.8-14.3) 03/12/20 09:45 INR Target Range - 03/12/20 09:45 INR 0.96 (0.8-1.3) 03/12/20 09:45 APTT 27.8 SECONDS (22.9-36.5) 03/12/20 09:45 PTT Comment - 03/12/20 09:45 D-Dimer 0.83 ug/ml (0.0-0.57) H* 03/20/20 04:05 Sample Site Rr 03/20/20 05:00 ABG pH 7.380 (7.35-7.45) 03/20/20 05:00 ABG pCO2 34.0 mmHg (35.0-45.0) L 03/20/20 05:00 ABG pO2 65.0 mmHg (80.0-100.0) L 03/20/20 05:00 ABG HCO3 20.1 mmol/L (22-26) L 03/20/20 05:00 ABG O2 Saturation 92.0 % (90-100) 03/20/20 05:00 ABG Base Excess -4.3 mmol/L (-2.0-2.0) L 03/20/20 05:00 Red Test Pos 03/20/20 05:00 A-a Gradient 463.0 mmHg 03/20/20 05:00 FiO2 80.0 03/20/20 05:00 Blood Gas Comments David well kh 03/20/20 05:00 Sodium 139 mmol/L (136-145) 03/20/20 04:05 Corrected Sodium 144 mmol/L (136-145) 03/20/20 04:05 Potassium 4.0 mmol/L (3.5-5.1) 03/20/20 04:05 Chloride 107 mmol/L (98-107) 03/20/20 04:05 Carbon Dioxide 21.1 mmol/L (21-32) 03/20/20 04:05 BUN 42 mg/dL (7-18) H 03/20/20 04:05 Creatinine 1.33 mg/dL (0.55-1.02) H 03/20/20 04:05 Est GFR (MDRD) Af Amer 51 (>60) L 03/20/20 04:05 Est GFR (MDRD) Non-Af 42 (>60) L 03/20/20 04:05 Glucose 297 mg/dL (65-99) H 03/20/20 04:05 POC Glucose (mg/dL) 386 mg/dL (65-99) H 03/20/20 19:43 Lactic Acid 7.9 mmol/L (0.4-2.0) H 03/12/20 09:45 Calcium 7.9 mg/dL (8.5-10.1) L 03/20/20 04:05 Corrected Calcium 10.1 mg/dL (8.5-10.1) 03/20/20 04:05 Magnesium 2.1 mg/dL (1.7-2.9) 03/17/20 07:32 Ferritin 126 ng/mL (8-252) 03/20/20 04:05 Total Bilirubin 0.20 mg/dL (0.2-1.0) 03/20/20 04:05 AST 51 Units/L (15-37) H 03/20/20 04:05 ALT 25 Units/L (12-78) 03/20/20 04:05 Alkaline Phosphatase 277 Units/L (46-116) H 03/20/20 04:05 Creatine Kinase 57 Units/L (26-192) 03/12/20 16:10 CK-MB (CK-2) 1.6 ng/mL (0-4.0) 03/12/20 16:10 CK/CKMB % Calc 2.8 % (<4) 03/12/20 16:10 Troponin I 0.18 ng/mL (0-1.5) 03/12/20 16:10 C-Reactive Protein 12.30 mg/L (0-3.0) H 03/20/20 04:05 B-Natriuretic Peptide 32.9 pg/mL (0-79) 03/20/20 04:05 Total Protein 6.2 g/dL (6.4-8.2) L 03/20/20 04:05 Albumin 1.3 g/dL (3.4-5.0) L 03/20/20 04:05 Globulin 4.9 g/dL (2.5-4.5) H 03/20/20 04:05 Albumin/Globulin Ratio 0.3 Ratio (1.1-2.1) L 03/20/20 04:05 Specimen Type Clean catch urine 03/12/20 09:45 Urine Color Yellow (YELLOW) 03/12/20 09:45 Urine Appearance Slightly hazy (CLEAR) 03/12/20 09:45 Urine pH 5.0 (5.0 - 8.0) 03/12/20 09:45 Ur Specific [place] 1.025 (1.000-1.030) 03/12/20 09:45 Urine Protein 4+ (NEGATIVE) 03/12/20 09:45 Urine Glucose (UA) Negative (NEGATIVE) 03/12/20 09:45 Urine Ketones Negative (NEGATIVE) 03/12/20 09:45 Urine Occult Blood 2+ (NEGATIVE) 03/12/20 09:45 Urine Nitrite Negative (NEGATIVE) 03/12/20 09:45 Urine Bilirubin Negative (NEGATIVE) 03/12/20 09:45 Urine Urobilinogen Normal (NORMAL) 03/12/20 09:45 Ur Leukocyte Esterase Negative (NEGATIVE) 03/12/20 09:45 Urine RBC 3-5 /HPF (0-3) A 03/12/20 09:45 Urine WBC 0-2 /HPF (0-5) 03/12/20 09:45 Ur Squamous Epith Cells Few /HPF (NEGATIVE) 03/12/20 09:45 Amorphous Sediment Trace /HPF (NEGATIVE) 03/12/20 09:45 Urine Bacteria Trace /HPF (NEGATIVE) 03/12/20 09:45 Hyaline Casts Few /LPF (NEGATIVE) 03/12/20 09:45 Ur Culture Indicated? No/not indicated 03/12/20 09:45 Acetone, Semi-Quant Negative (NEGATIVE) 03/18/20 16:30 SARS CoV-2 RNA Rapid FRANCISCO JAVIER Positive (NEGATIVE) A 03/12/20 10:23 Blood Type A POSITIVE 03/19/20 09:00 - Plan (1) Pneumonia due to COVID-19 virus Status: Acute Plan: BIPAP, NS AT 75 ML/HR, REMDESIVIR 100MG IV DAILY, FORTAZ 1G IV Q12H, LEVAQUIN 750MG IV Q48H, ALBUTEROL NEBS QID, MUCOMYST IN NEBS QID, PULMICORT NEBS BID, ASCORBIC ACID 1500MG IV Q6H, CLONIDINE 0.2MG/HR TD PATCH, LIPITOR 80MG PO HS, TESSALON PERLES 200MG PO TID, ZYRTEC 10MG PO DAILY, TUSSIONEX 5ML PO Q12H PRN, COLACE 100MG PO HS, LOVENOX BID, PEPCID 20MG PO BID, DIFLUCAN 100MG PO DAILY, ROBITUSSIN DM 10ML PO QID, IVERMECTIN- PHARMACY TO DOSE, MAGIC MOUTHWASH QID, MILK OF MAG BID PRN, MELATONIN 10MG PO HS, SOLU-MEDROL 125MG IV Q6H, SINGULAIR 10MG PO HS, PROTONIX 40MG PO DAILY, THIAMINE 200MG IV BID, AND ZINC SULFATE 220MG PO DAILY (2) Hypoxia Status: Acute (3) Acute respiratory failure Status: Acute Qualifiers: Respiratory failure complication: hypoxia Qualified Code(s): J96.01 - Acute respiratory failure with hypoxia
[2020-03-21] MEDS: ASCORBIC ACID INJ MULTI-DOSE VIAL 1,500 MG in NS 50 ML IV 50 ML IV SCH ×4 (03:39→21:30)
[2020-03-21] MEDS: NS 1000 ML 1,000 ML IV SCH (03:39)
[2020-03-21] MEDS: SOLU-Medrol 125 MG VIAL IVP SCH ×4 (04:00→21:30)
[2020-03-21 05:09] LABS: ABG BASE EXCESS -3.7 mmol/L (-2.0-2.0); ABG HCO3 20.6 mmol/L (22-26)
[2020-03-21 05:10] LABS: ABG ALLEN TEST POS
[2020-03-21 05:28] LABS: BASOPHILS % (AUTO) 0.1 % (0.2-1.0); EOSINOPHILS % (AUTO) 0.1 % (0.9-2.9); HEMATOCRIT 33.8 % (36.0-47.0); HEMOGLOBIN 10.8 g/dL (12.0-16.0); LYMPHOCYTES # (AUTO) 0.1 X10^3/uL (1.3-2.9); LYMPHOCYTES % (AUTO) 1.4 % (21.0-51.0); MEAN CORPUSCULAR HEMOGLOBIN 26.7 pg (27.0-34.0); MEAN CORPUSCULAR HGB CONC 31.9 g/dL (33.0-35.0); MEAN CORPUSCULAR VOLUME 83.6 fL (80.0-100.0); MEAN PLATELET VOLUME 8.9 fL (7.4-11.0); MONOCYTES # (AUTO) 0.4 x10^3/uL (0.3-0.8); NEUTROPHILS # (AUTO) 6.9 x10^3/uL (2.2-4.8); NEUTROPHILS % (AUTO) 93.4 % (42.0-75.0); PLATELET COUNT 160 X10^3/uL (150.0-450.0); RED BLOOD COUNT 4.05 X10^6/uL (3.5-5.4); RED CELL DISTRIBUTION WIDTH 14.9 % (11.6-16.5); WHITE BLOOD COUNT 7.4 X10^3/uL (3.6-10.0)
[2020-03-21 05:38] LABS: ALBUMIN 1.4 g/dL (3.4-5.0); CALCIUM 8.2 mg/dL (8.5-10.1); CARBON DIOXIDE 21.4 mmol/L (21-32); COR CA(FOR HYPOALB) 10.3 mg/dL (8.5-10.1); CREATININE 1.42 mg/dL (0.55-1.02); TOTAL PROTEIN 6.5 g/dL (6.4-8.2)
[2020-03-21] MEDS: NEURONTIN CAP 400 MG PO SCH ×3 (05:43→21:30)
[2020-03-21] MEDS: TESSALON PERLES PO SCH ×3 (05:44→21:30)
[2020-03-21] MEDS: XANAX PO SCH ×3 (05:44→21:30)
--- NOTE | 2020-03-21 06:14 | RAD ---
HISTORYSOBSTUDYCHEST, 1 VIEWCOMPARISONOne day prior.TECHNIQUEAP view of the chestFINDINGSThe cardiac silhouette is stably enlarged. Mediastinal contours appear stable. No significant change in bilateral airspace and interstitial opacities. No definite pleural effusion or pneumothorax. Soft tissue attenuation limits evaluation.IMPRESSIONNo significant change.Electronically signed by: Petey Pedroza (Mar 21, 2020 06:12:24)
[2020-03-21 06:15] LABS: PLATELET MORPHOLOGY COMMENT NORMAL (NORMAL)
[2020-03-21] MEDS: HumuLIN R SUBCUT PRN ×3 (06:16→21:30)
[2020-03-21] MEDS ORDERED: NS 100 ML IV + SPIKE MINIBAG* 100 ML IV ONE (08:33)
[2020-03-21] MEDS: COLACE CAP 100 MG PO SCH (08:59)
[2020-03-21] MEDS: PULMICORT NEB TX 0.5 MG NEB SCH ×2 (09:00→21:20)
[2020-03-21] MEDS: COZAAR PO SCH (09:00)
[2020-03-21] MEDS: ACCUNEB 1.25 MG NEBULE NEB SCH ×4 (09:00→21:20)
[2020-03-21] MEDS: KENALOG OINT TOP SCH ×2 (09:01→22:27)
[2020-03-21] MEDS: PEPCID TAB 20 MG PO SCH (09:02)
[2020-03-21] MEDS: MAGIC MOUTHWASH MT SCH ×4 (09:02→21:30)
[2020-03-21] MEDS: LOVENOX INJ 120 MG SYR SC SCH ×2 (09:03→21:30)
[2020-03-21] MEDS: PROCARDIA XL PO SCH ×2 (09:05→21:30)
[2020-03-21] MEDS: PROTONIX TAB 40 MG PO SCH (09:05)
[2020-03-21] MEDS: ROBITUSSIN DM PO SCH ×4 (09:06→21:30)
[2020-03-21] MEDS: SYNTHROID 100 mcg TAB PO SCH (09:06)
[2020-03-21] MEDS: THEO-24 CAP 200 MG (24-HR) PO SCH ×2 (09:08→21:30)
[2020-03-21] MEDS: THIAMINE HCL INJ IVP SCH ×2 (09:08→21:30)
[2020-03-21] MEDS: VITAMIN D3 125 mcg (5,000 UNITS) PO SCH (09:09)
[2020-03-21] MEDS: ZINC SULFATE PO SCH (09:10)
[2020-03-21] MEDS: ZyrTEC TAB 10 MG PO SCH (09:10)
[2020-03-21] MEDS: DIFLUCAN PO SCH (09:18)
[2020-03-21] MEDS: ALBUMIN HUMAN 25%- 100 ML 100 ML IV SCH (09:56)
[2020-03-21] MEDS: ULTRAM PO PRN ×2 (09:57→20:30)
[2020-03-21] MEDS: FORTAZ or TAZICEF VIAL INJ 1 G in NS 100 ML IV + SPIKE MINIBAG* 100 ML IV SCH ×2 (10:00→22:30)
[2020-03-21] MEDS: MAALOX or MYLANTA PO PRN ×2 (15:59→22:30)
[2020-03-21] MEDS ORDERED: LASIX IVP ONE ×2 (16:42→19:29)
[2020-03-21 16:45] LABS: ABG BASE EXCESS -4.1 mmol/L (-2.0-2.0); ABG HCO3 20.9 mmol/L (22-26)
[2020-03-21 16:46] LABS: ABG ALLEN TEST POS
[2020-03-21] MEDS ORDERED: PROCALAMINE 3 % 1,000 ML IV SCH (18:00)
[2020-03-21] MEDS: ZOFRAN INJ 4 MG VIAL IVP PRN (19:50)
[2020-03-21] MEDS: SNACK - Diabetic Appropriate PO SCH (20:00)
[2020-03-21] MEDS: ZOLOFT PO SCH (21:30)
[2020-03-21] MEDS: SINGULAIR TAB 10 MG PO SCH (21:30)
[2020-03-21] MEDS: MELATONIN PO SCH (21:30)
[2020-03-21] MEDS: LIPITOR TAB 80 MG PO SCH (21:30)
[2020-03-22] MEDS: ULTRAM PO PRN ×2 (03:16→21:08)
[2020-03-22] MEDS: ZOFRAN INJ 4 MG VIAL IVP PRN (03:16)
[2020-03-22] MEDS: VISTARIL PO PRN ×2 (03:16→21:08)
[2020-03-22] MEDS: ASCORBIC ACID INJ MULTI-DOSE VIAL 1,500 MG in NS 50 ML IV 50 ML IV SCH (03:16)
[2020-03-22] MEDS: SOLU-Medrol 125 MG VIAL IVP SCH ×4 (04:45→21:05)
[2020-03-22 05:47] LABS: ABG BASE EXCESS -0.7 mmol/L (-2.0-2.0); ABG HCO3 24.2 mmol/L (22-26)
[2020-03-22 05:49] LABS: ABG ALLEN TEST POS
[2020-03-22] MEDS: NEURONTIN CAP 400 MG PO SCH ×3 (06:00→22:19)
[2020-03-22] MEDS: TESSALON PERLES PO SCH ×3 (06:00→22:19)
[2020-03-22] MEDS: XANAX PO SCH ×3 (06:00→22:19)
[2020-03-22] MEDS: HumuLIN R SUBCUT PRN ×4 (06:05→22:32)
[2020-03-22 06:09] LABS: BASOPHILS % (AUTO) 0.1 % (0.2-1.0); HEMATOCRIT 28.3 % (36.0-47.0); HEMOGLOBIN 9.2 g/dL (12.0-16.0); LYMPHOCYTES # (AUTO) 0.2 X10^3/uL (1.3-2.9); LYMPHOCYTES % (AUTO) 1.9 % (21.0-51.0); MEAN CORPUSCULAR HGB CONC 32.7 g/dL (33.0-35.0); MEAN CORPUSCULAR VOLUME 82.8 fL (80.0-100.0); MEAN PLATELET VOLUME 8.6 fL (7.4-11.0); MONOCYTES # (AUTO) 0.5 x10^3/uL (0.3-0.8); MONOCYTES % (AUTO) 5.7 % (0.0-13.0); NEUTROPHILS # (AUTO) 7.4 x10^3/uL (2.2-4.8); NEUTROPHILS % (AUTO) 92.3 % (42.0-75.0); PLATELET COUNT 141 X10^3/uL (150.0-450.0); RED BLOOD COUNT 3.41 X10^6/uL (3.5-5.4); RED CELL DISTRIBUTION WIDTH 14.9 % (11.6-16.5)
[2020-03-22 06:33] LABS: ALBUMIN 1.7 g/dL (3.4-5.0); CARBON DIOXIDE 24.4 mmol/L (21-32); COR CA(FOR HYPOALB) 9.8 mg/dL (8.5-10.1); CREATININE 1.42 mg/dL (0.55-1.02); THEOPHYLLINE 5.1 ug/mL (10-20)
[2020-03-22 06:49] LABS: PREALBUMIN 15.1 mg/dL (18-35.7)
[2020-03-22 07:16] LABS: BAND NEUTROPHILS % 1 % (0-10); METAMYELOCYTES % 1; PLATELET MORPHOLOGY COMMENT NORMAL (NORMAL)
[2020-03-22] MEDS: ACCUNEB 1.25 MG NEBULE NEB SCH ×4 (09:51→21:00)
[2020-03-22] MEDS: PULMICORT NEB TX 0.5 MG NEB SCH ×2 (09:51→21:00)
[2020-03-22] MEDS: COZAAR PO SCH (10:00)
[2020-03-22] MEDS: ZyrTEC TAB 10 MG PO SCH (10:00)
[2020-03-22] MEDS: PROCARDIA XL PO SCH ×2 (10:00→21:08)
[2020-03-22] MEDS: MAGIC MOUTHWASH MT SCH ×3 (10:00→17:11)
[2020-03-22] MEDS: PROTONIX TAB 40 MG PO SCH (10:00)
[2020-03-22] MEDS: PEPCID TAB 20 MG PO SCH (10:00)
[2020-03-22] MEDS: VITAMIN D3 125 mcg (5,000 UNITS) PO SCH (10:00)
[2020-03-22] MEDS: FORTAZ or TAZICEF VIAL INJ 1 G in NS 100 ML IV + SPIKE MINIBAG* 100 ML IV SCH ×2 (10:00→22:13)
[2020-03-22] MEDS: COLACE CAP 100 MG PO SCH (10:00)
[2020-03-22] MEDS: ROBITUSSIN DM PO SCH ×3 (10:00→17:11)
[2020-03-22] MEDS: DIFLUCAN PO SCH (10:00)
[2020-03-22] MEDS: THEO-DUR TAB 300 MG 12-HR PO SCH ×2 (10:00→21:08)
[2020-03-22] MEDS: SYNTHROID 100 mcg TAB PO SCH (10:00)
[2020-03-22] MEDS: ZINC SULFATE PO SCH (10:00)
[2020-03-22] MEDS: THIAMINE HCL INJ IVP SCH (10:00)
[2020-03-22] MEDS: ALBUMIN HUMAN 25%- 100 ML 100 ML IV SCH ×2 (10:11→21:12)
[2020-03-22] MEDS: LOVENOX INJ 120 MG SYR SC SCH ×2 (10:13→21:00)
--- NOTE | 2020-03-22 10:13 | RAD ---
HISTORYShortness of breathSTUDYChest AP [id number] heart is enlarged. No congestive heart failure is noted. The lungs remain hypoinflated. There does appear to be some improvement in the bilateral infiltrates being followed. No pleural effusions are identified. Bony thorax is unremarkable.IMPRESSIONNo change cardiomegaly without congestive heart failureSome improvement in the bilateral infiltrates being followedElectronically signed by: YAKELIN DAMIAN (Mar 22, 2020 10:10:40)
[2020-03-22] MEDS: NYSTATIN POWDER TOP SCH ×2 (10:42→21:16)
[2020-03-22] MEDS ORDERED: PHARMACY CONSULT - TPN XX SCH (11:00)
[2020-03-22] MEDS: LASIX IVP SCH ×2 (11:45→22:15)
[2020-03-22] MEDS ORDERED: HumuLIN R SUBCUT PRN (13:34)
--- NOTE | 2020-03-22 13:45 | VAS ---
HISTORYPALPABLE BRUISED AREA TO RT ARMExtremity pain, swelling, and edema.Study: Right upper extremity Doppler venous ultrasound.Comparison: None available.TECHNIQUE: Multiple torres scale and color flow Doppler images of the deep venous system were obtained of the [] upper extremity.FINDINGS:The deep venous system of the [right] upper extremity evaluated from the level of the internal jugular vein through the [radial and ulnar veins]. Normal color flow and augmentation can be observed. In addition, normal compression is seen throughout the upper extremity deep venous system. [No soft tissue hematoma is seen.]IMPRESSION:1. Negative examination for DVT.2. Mixed echotexture, largely echogenic, 7.6 x 4.8 cm masslike soft tissue lesion seen within the right arm in the region of clinical concern which could reflect a large hematoma. However, follow-up with MR imaging with IV contrast is recommended to exclude a bleeding sarcoma versus any other aggressive soft tissue masses in this location.Electronically signed by: NAGI MOURA III (Mar 22, 2020 13:44:01)
[2020-03-22] MEDS: TUSSIONEX PENNKINETIC SUSP PO PRN (14:24)
[2020-03-22] MEDS: SNACK - Diabetic Appropriate PO SCH (20:00)
--- NOTE | 2020-03-22 20:06 | PCM.PROG ---
Progress Note - Progress Note for Day of Date of Exam: 03/22/20 - Subjective Subjective: IS BEING TREATED FOR PNEUMONIA DUE TO COVID-19 AND HYPOXIA. SHE HAS A PMH OF DIABETES, DYSLIPIDEMIA, AND HTN. TODAY, SHE IS ALERT AND ORIENTED, SITTING UP IN BED ON MORNING ROUNDS. SHE REPORTS SHORTNESS OF BREATH, COUGH, AND WEAKNESS THIS MORNING. SHE REPORTS SLIGHT INCREASE IN SHORTNESS OF BREATH TODAY. SHE IS CURRENTLY ON THE BIPAP. HER SATURATIONS HAVE BEEN 93-100% THIS MORNING AND THROUGHOUT THE NIGHT. ON EXAMINATION, HEART IS REGULAR IN RATE AND RHYTHM. BILATERAL LUNGS CONTINUE WITH RALES THROUGHOUT. ABDOMEN IS ROUND, SOFT, AND NON-TENDER WITH NORMAL BOWEL SOUNDS NOTED THROUGHOUT. THERE IS 1+ PITTING EDEMA NOTED TO LOWER EXTREMITIES. HER VITALS THIS MORNING ARE: 97.5-81-2 4-95%-185/83. LABS WERE OBTAINED. ABNORMAL LAB VALUES INCLUDE THE FOLLOWING: HGB 10.8, HCT 33.8, D-DIMER 0.72, BUN 47, CREATININE 1.42, GLUCOSE 298, CALCIUM 8.2, AST 43, ALK PHOS 265, CRP 5.50, ALBUMIN 1.4, GLOBULIN 5.1. ABG REVEALED: PH 7.390, PC02 34, P02 62, HC03 20.6, 02 SAT 91, BASE EXCESS -3.7, FI02 75. CHEST XRAY WAS OBTAINED AND REVEALED: The cardiac silhouette is stably enlarged. Mediastinal contours appear stable. No significant change in bilateral airspace and interstitial opacities. No definite pleural effusion or pneumothorax. Soft tissue attenuation limits evaluation. SHE IS CURRENTLY RECEIVING NS AT 75 ML/HR, APRESOLINE 10MG IV Q4H PRN, FORTAZ 1G IV Q12H, LEVAQUIN 750MG IV Q48H, ALBUTEROL NEBS QID, MUCOMYST IN NEBS QID, PULMICORT NEBS BID, ASCORBIC ACID 1500MG IV Q6H, CLONIDINE 0.2MG/HR TD PATCH, LIPITOR 80MG PO HS, TESSALON PERLES 200MG PO TID, ZYRTEC 10MG PO DAILY, TUSSIONEX 5ML PO Q12H PRN, COLACE 100MG PO HS, LOVENOX BID, PEPCID 20MG PO BID, DIFLUCAN 100MG PO DAILY, ROBITUSSIN DM 10ML PO QID, IVERMECTIN- PHARMACY TO DOSE, MAGIC MOUTHWASH QID, MILK OF MAG BID PRN, MELATONIN 10MG PO HS, SOLU-MEDROL 125MG IV Q6H, SINGULAIR 10MG PO HS, PROTONIX 40MG PO DAILY, XANAX 0.5MG PO TID, GABAPENTIN 800MG PO TID, THIAMINE 200MG IV BID, HUMULIN R SLIDING SCALE, AND ZINC SULFATE 220MG PO DAILY. WE WILL CONTINUE WITH CURRENT PLAN OF CARE TODAY AND ADD LASIX 40MG IV X 1 DOSE AND ALBUMIN 25% IV DAILY. OTHERWISE, WE WILL FOLLOW UP WITH AM LABS, XRAY, ABG, AND CONTINUE TO MONITOR. TIME SPENT ON CLINICAL ASSESSMENT, REVIEWING LABS AND IMAGING, DECISION MAKING, AND DOCUMENTATION GREATER THAN 75 MINUTES. - Past Medical Family Social History Past Med/Fam/Surg Hx: No changes since H&P Allergies: Allergies No Known Drug Allergies Allergy (Verified 03/12/20 09:37) - Review of Systems ROS: No change since H&P - Vital Signs and I&O's Vital Signs: Temperature 97.4 F Pulse Rate [Apical] 82 Pulse Rate 83 Respiratory Rate 22 Blood Pressure [Left Arm] 176/78 Blood Pressure [Right Arm] 171/77 Blood Pressure 189/87 O2 Sat by Pulse Oximetry 96 Intake and Output: Intake & Output 03/20/20 03/21/20 03/22/20 03/23/20 11:59 11:59 11:59 11:59 Intake Total 3519 / 3519 3196 / 3196 3342 / 3342 159 / 159 Output Total 1575 / 1575 1150 / 1150 2800 / 2800 700 / 700 Balance 1944 / 1944 2046 / 2046 542 / 542 -541 / -541 - Physical Exam Oriented: Person Eyes: Normal Ear: Normal Nose: Normal Throat: Normal Respiratory: Diminished, Rales Cardiovascular: Normal : Normal Auscultation: Bowel Sounds: Normal Palpation: Normal Tenderness: Normal Skin: Normal Musculoskeletal: Normal Psychiatric: Normal Mood Description: Flat Affect: Normal Speech Pattern: Appropriate - Laboratory and Diagnostics Result Diagrams: 03/22/20 05:22 03/22/20 05:22 Labs: 03/12/20 16:17 Blood Blood Culture - Final 03/12/20 16:10 Blood Blood Culture - Final Laboratory WBC 8.0 X10^3/uL (3.6-10.0) 03/22/20 05:22 RBC 3.41 X10^6/uL (3.5-5.4) L 03/22/20 05:22 Hgb 9.2 g/dL (12.0-16.0) L 03/22/20 05:22 Hct 28.3 % (36.0-47.0) L 03/22/20 05:22 MCV 82.8 fL (80.0-100.0) 03/22/20 05:22 MCH 27.0 pg (27.0-34.0) 03/22/20 05:22 MCHC 32.7 g/dL (33.0-35.0) L 03/22/20 05:22 RDW 14.9 % (11.6-16.5) 03/22/20 05:22 Plt Count 141 X10^3/uL (150.0-450.0) L 03/22/20 05:22 Plt Count Comment Decreased (ADEQUATE) A 03/22/20 05:22 MPV 8.6 fL (7.4-11.0) 03/22/20 05:22 Neut % (Auto) 92.3 % (42.0-75.0) H 03/22/20 05:22 Lymph % (Auto) 1.9 % (21.0-51.0) L 03/22/20 05:22 [place] % (Auto) 5.7 % (0.0-13.0) 03/22/20 05:22 Eos % (Auto) 0.0 % (0.9-2.9) L 03/22/20 05:22 Baso % (Auto) 0.1 % (0.2-1.0) L 03/22/20 05:22 Neut # (Auto) 7.4 x10^3/uL (2.2-4.8) H 03/22/20 05:22 Lymph # (Auto) 0.2 X10^3/uL (1.3-2.9) L 03/22/20 05:22 [place] # (Auto) 0.5 x10^3/uL (0.3-0.8) 03/22/20 05:22 Eos # (Auto) 0.0 x10^3/uL (0.0-0.2) 03/22/20 05:22 Baso # (Auto) 0.0 X10^3/uL (0.0-0.1) 03/22/20 05:22 Absolute Nucleated RBC 0.0 /100WBC 03/22/20 05:22 Total Counted 100 03/22/20 05:22 Neutrophils % (Manual) 87 % (39-76) H 03/22/20 05:22 Band Neutrophils % 1 % (0-10) 03/22/20 05:22 Lymphocytes % (Manual) 2 % (13-43) L 03/22/20 05:22 Monocytes % (Manual) 9 % (4-9) 03/22/20 05:22 Metamyelocytes % 1 03/22/20 05:22 Plt Morphology Comment Normal (NORMAL) 03/22/20 05:22 RBC Morphology Normal (NORMAL) 03/22/20 05:22 ESR 89 MM/HOUR (0-20) H 03/12/20 09:45 PT 12.5 SECONDS (11.8-14.3) 03/12/20 09:45 INR Target Range - 03/12/20 09:45 INR 0.96 (0.8-1.3) 03/12/20 09:45 APTT 27.8 SECONDS (22.9-36.5) 03/12/20 09:45 PTT Comment - 03/12/20 09:45 D-Dimer 0.99 ug/ml (0.0-0.57) H* 03/22/20 05:22 Sample Site Rr 03/22/20 05:25 ABG pH 7.390 (7.35-7.45) 03/22/20 05:25 ABG pCO2 40.0 mmHg (35.0-45.0) 03/22/20 05:25 ABG pO2 126.0 mmHg (80.0-100.0) H 03/22/20 05:25 ABG HCO3 24.2 mmol/L (22-26) 03/22/20 05:25 ABG O2 Saturation 99.0 % (90-100) 03/22/20 05:25 ABG Base Excess -0.7 mmol/L (-2.0-2.0) 03/22/20 05:25 Red Test Pos 03/22/20 05:25 A-a Gradient 537.0 mmHg 03/22/20 05:25 FiO2 100.0 03/22/20 05:25 Blood Gas Comments David well, kh 03/22/20 05:25 Sodium 140 mmol/L (136-145) 03/22/20 05:22 Corrected Sodium 146 mmol/L (136-145) H 03/22/20 05:22 Potassium 4.9 mmol/L (3.5-5.1) 03/22/20 05:22 Chloride 107 mmol/L (98-107) 03/22/20 05:22 Carbon Dioxide 24.4 mmol/L (21-32) 03/22/20 05:22 BUN 41 mg/dL (7-18) H 03/22/20 05:22 Creatinine 1.42 mg/dL (0.55-1.02) H 03/22/20 05:22 Est GFR (MDRD) Af Amer 47 (>60) L 03/22/20 05:22 Est GFR (MDRD) Non-Af 39 (>60) L 03/22/20 05:22 Glucose 359 mg/dL (65-99) H 03/22/20 05:22 POC Glucose (mg/dL) 372 mg/dL (65-99) H 03/22/20 17:17 Lactic Acid 7.9 mmol/L (0.4-2.0) H 03/12/20 09:45 Calcium 8.0 mg/dL (8.5-10.1) L 03/22/20 05:22 Corrected Calcium 9.8 mg/dL (8.5-10.1) 03/22/20 05:22 Magnesium 2.1 mg/dL (1.7-2.9) 03/17/20 07:32 Ferritin 129 ng/mL (8-252) 03/22/20 05:22 Total Bilirubin 0.20 mg/dL (0.2-1.0) 03/22/20 05:22 AST 43 Units/L (15-37) H 03/22/20 05:22 ALT 33 Units/L (12-78) 03/22/20 05:22 Alkaline Phosphatase 252 Units/L (46-116) H 03/22/20 05:22 Creatine Kinase 57 Units/L (26-192) 03/12/20 16:10 CK-MB (CK-2) 1.6 ng/mL (0-4.0) 03/12/20 16:10 CK/CKMB % Calc 2.8 % (<4) 03/12/20 16:10 Troponin I 0.18 ng/mL (0-1.5) 03/12/20 16:10 C-Reactive Protein 2.10 mg/L (0-3.0) 03/22/20 05:22 B-Natriuretic Peptide 80.4 pg/mL (0-79) H 03/22/20 05:22 Total Protein 6.0 g/dL (6.4-8.2) L 03/22/20 05:22 Albumin 1.7 g/dL (3.4-5.0) L 03/22/20 05:22 Globulin 4.3 g/dL (2.5-4.5) 03/22/20 05:22 Albumin/Globulin Ratio 0.4 Ratio (1.1-2.1) L 03/22/20 05:22 Prealbumin 15.4 mg/dL (18-35.7) L 03/22/20 05:25 Specimen Type Clean catch urine 03/12/20 09:45 Urine Color Yellow (YELLOW) 03/12/20 09:45 Urine Appearance Slightly hazy (CLEAR) 03/12/20 09:45 Urine pH 5.0 (5.0 - 8.0) 03/12/20 09:45 Ur Specific [place] 1.025 (1.000-1.030) 03/12/20 09:45 Urine Protein 4+ (NEGATIVE) 03/12/20 09:45 Urine Glucose (UA) Negative (NEGATIVE) 03/12/20 09:45 Urine Ketones Negative (NEGATIVE) 03/12/20 09:45 Urine Occult Blood 2+ (NEGATIVE) 03/12/20 09:45 Urine Nitrite Negative (NEGATIVE) 03/12/20 09:45 Urine Bilirubin Negative (NEGATIVE) 03/12/20 09:45 Urine Urobilinogen Normal (NORMAL) 03/12/20 09:45 Ur Leukocyte Esterase Negative (NEGATIVE) 03/12/20 09:45 Urine RBC 3-5 /HPF (0-3) A 03/12/20 09:45 Urine WBC 0-2 /HPF (0-5) 03/12/20 09:45 Ur Squamous Epith Cells Few /HPF (NEGATIVE) 03/12/20 09:45 Amorphous Sediment Trace /HPF (NEGATIVE) 03/12/20 09:45 Urine Bacteria Trace /HPF (NEGATIVE) 03/12/20 09:45 Hyaline Casts Few /LPF (NEGATIVE) 03/12/20 09:45 Ur Culture Indicated? No/not indicated 03/12/20 09:45 Theophylline 5.1 ug/mL (10-20) L 03/22/20 05:22 Acetone, Semi-Quant Negative (NEGATIVE) 03/18/20 16:30 SARS CoV-2 RNA Rapid FRANCISCO JAVIER Positive (NEGATIVE) A 03/12/20 10:23 Blood Type A POSITIVE 03/19/20 09:00 - Plan (1) Pneumonia due to COVID-19 virus Status: Acute Plan: BIPAP, NS AT 75 ML/HR, ALBUMIN 25% IV DAILY, FORTAZ 1G IV Q12H, LEVAQUIN 750MG IV Q48H, ALBUTEROL NEBS QID, MUCOMYST IN NEBS QID, PULMICORT NEBS BID, ASCORBIC ACID 1500MG IV Q6H, CLONIDINE 0.2MG/HR TD PATCH, LIPITOR 80MG PO HS, TESSALON PERLES 200MG PO TID, ZYRTEC 10MG PO DAILY, TUSSIONEX 5ML PO Q12H PRN, COLACE 100MG PO HS, LOVENOX BID, PEPCID 20MG PO BID, DIFLUCAN 100MG PO DAILY, ROBITUSSIN DM 10ML PO QID, IVERMECTIN- PHARMACY TO DOSE, MAGIC MOUTHWASH QID, MILK OF MAG BID PRN, MELATONIN 10MG PO HS, SOLU-MEDROL 125MG IV Q6H, SINGULAIR 10MG PO HS, PROTONIX 40MG PO DAILY, THIAMINE 200MG IV BID, AND ZINC SULFATE 220MG PO DAILY (2) Hypoxia Status: Acute (3) Acute respiratory failure Status: Acute Qualifiers: Respiratory failure complication: hypoxia Qualified Code(s): J96.01 - Acute respiratory failure with hypoxia
--- NOTE | 2020-03-22 20:15 | PCM.PROG ---
Progress Note - Progress Note for Day of Date of Exam: 03/22/20 - Subjective Subjective: IS BEING TREATED FOR PNEUMONIA DUE TO COVID-19 AND HYPOXIA. SHE HAS A PMH OF DIABETES, DYSLIPIDEMIA, AND HTN. TODAY, SHE IS ALERT AND ORIENTED, SITTING UP IN BED ON MORNING ROUNDS. SHE REPORTS SHORTNESS OF BREATH, COUGH, AND WEAKNESS THIS MORNING. SHE DENIES SIGNIFICANT IMPROVEMENT IN SYMPTOMS SINCE YESTERDAY. SHE ALSO REPORTS PAIN, REDNESS, AND SWELLING TO THE RIGHT UPPER ARM. SHE IS CURRENTLY ON THE BIPAP AT 100% FIO2. HER SATURATIONS HAVE BEEN 93- 97% THIS MORNING AND THROUGHOUT THE NIGHT. STAFF REPORTS THAT PATIENTS OXYGEN SATURATION DROPPED TO THE 70s WHILE WORKING WITH PHYSICAL THERAPY YESTERDAY. THEY RECOVERED TO THE 90s AFTER SHE WAS PUT BACK IN BED AND PLACED ON THE BIPAP. ON EXAMINATION, HEART IS REGULAR IN RATE AND RHYTHM. BILATERAL LUNGS CONTINUE WITH RALES THROUGHOUT. ABDOMEN IS ROUND, SOFT, AND NON-TENDER WITH NORMAL BOWEL SOUNDS NOTED THROUGHOUT. THERE IS 1+ PITTING EDEMA NOTED TO LOWER EXTREMITIES. HER VITALS THIS MORNING ARE: 96.1-75-22-97%-188/81. LABS WERE OBTAINED. ABNORMAL LAB VALUES INCLUDE THE FOLLOWING: RBC 3.41, HGB 9.2, HCT 28.3, PLT COUNT 141, D- DIMER 0.99, BUN 41, CREATININE 1.42, GLUCOSE 359, CALCIUM 8.0, AST 43, ALK PHOS 252, BNP 80.4, TOTAL PROTEIN 6.0, ALBUMIN 1.7, PREALBUMIN 15.1. ABG REVEALED: PH 7.390, PC02 40, P02 126, HC03 24, 02 SAT 99, A-A GRADIENT 537, FI02 100. CHEST XRAY WAS OBTAINED AND REVEALED: No change cardiomegaly without congestive heart failure. Some improvement in the bilateral infiltrates being followed. SHE IS CURRENTLY RECEIVING NS AT 75 ML/HR, ALBUMIN 25% IV DAILY, APRESOLINE 10MG IV Q4H PRN, FORTAZ 1G IV Q12H, LEVAQUIN 750MG IV Q48H, ALBUTEROL NEBS QID, MUCOMYST IN NEBS QID, PULMICORT NEBS BID, ASCORBIC ACID 1500MG IV Q6H, CLONIDINE 0.2MG/HR TD PATCH, LIPITOR 80MG PO HS, TESSALON PERLES 200MG PO TID, ZYRTEC 10MG PO DAILY, TUSSIONEX 5ML PO Q12H PRN, COLACE 100MG PO HS, LOVENOX BID, PEPCID 20MG PO BID, DIFLUCAN 100MG PO DAILY, ROBITUSSIN DM 10ML PO QID, IVERMECTIN- PHARMACY TO DOSSE, MAGIC MOUTHWASH QID, MILK OF MAG BID PRN, MELATONIN 10MG PO HS, SOLU- MEDROL 125MG IV Q6H, SINGULAIR 10MG PO HS, PROTONIX 40MG PO DAILY, XANAX 0.5MG PO TID, GABAPENTIN 800MG PO TID, THIAMINE 200MG IV BID, HUMULIN R SLIDING SCALE, AND ZINC SULFATE 220MG PO DAILY. WE WILL CONTINUE WITH CURRENT PLAN OF CARE TODAY AND START NYSTATIN POWDER TO ABDOMINAL FOLD, TPN, OBTAIN AN UPPER EXTREMITY VENOUS DOPPLER, AND CONSULT FOR A CENTRAL LINE. OTHERWISE, WE WILL FOLLOW UP WITH AM LABS, XRAY, ABG, AND CONTINUE TO MONITOR. TIME SPENT ON CLINICAL ASSESSMENT, REVIEWING LABS AND IMAGING, DECISION MAKING, AND DOC UMENTATION GREATER THAN 75 MINUTES. - Past Medical Family Social History Past Med/Fam/Surg Hx: No changes since H&P Allergies: Allergies No Known Drug Allergies Allergy (Verified 03/12/20 09:37) - Review of Systems ROS: No change since H&P - Vital Signs and I&O's Vital Signs: Temperature 97.4 F Pulse Rate [Apical] 82 Pulse Rate 83 Respiratory Rate 22 Blood Pressure [Left Arm] 176/78 Blood Pressure [Right Arm] 171/77 Blood Pressure 189/87 O2 Sat by Pulse Oximetry 96 Intake and Output: Intake & Output 03/20/20 03/21/20 03/22/20 03/23/20 11:59 11:59 11:59 11:59 Intake Total 3519 / 3519 3196 / 3196 3342 / 3342 159 / 159 Output Total 1575 / 1575 1150 / 1150 2800 / 2800 700 / 700 Balance 1944 / 1944 2046 / 2046 542 / 542 -541 / -541 - Physical Exam Oriented: Person Eyes: Normal Ear: Normal Nose: Normal Throat: Normal Respiratory: Diminished, Rales Cardiovascular: Normal : Normal Auscultation: Bowel Sounds: Normal Palpation: Normal Tenderness: Normal Skin: Normal Musculoskeletal: Normal Psychiatric: Normal Mood Description: Flat Affect: Normal Speech Pattern: Appropriate - Laboratory and Diagnostics Result Diagrams: 03/22/20 05:22 03/22/20 05:22 Labs: 03/12/20 16:17 Blood Blood Culture - Final 03/12/20 16:10 Blood Blood Culture - Final Laboratory WBC 8.0 X10^3/uL (3.6-10.0) 03/22/20 05:22 RBC 3.41 X10^6/uL (3.5-5.4) L 03/22/20 05:22 Hgb 9.2 g/dL (12.0-16.0) L 03/22/20 05:22 Hct 28.3 % (36.0-47.0) L 03/22/20 05:22 MCV 82.8 fL (80.0-100.0) 03/22/20 05:22 MCH 27.0 pg (27.0-34.0) 03/22/20 05:22 MCHC 32.7 g/dL (33.0-35.0) L 03/22/20 05:22 RDW 14.9 % (11.6-16.5) 03/22/20 05:22 Plt Count 141 X10^3/uL (150.0-450.0) L 03/22/20 05:22 Plt Count Comment Decreased (ADEQUATE) A 03/22/20 05:22 MPV 8.6 fL (7.4-11.0) 03/22/20 05:22 Neut % (Auto) 92.3 % (42.0-75.0) H 03/22/20 05:22 Lymph % (Auto) 1.9 % (21.0-51.0) L 03/22/20 05:22 [place] % (Auto) 5.7 % (0.0-13.0) 03/22/20 05:22 Eos % (Auto) 0.0 % (0.9-2.9) L 03/22/20 05:22 Baso % (Auto) 0.1 % (0.2-1.0) L 03/22/20 05:22 Neut # (Auto) 7.4 x10^3/uL (2.2-4.8) H 03/22/20 05:22 Lymph # (Auto) 0.2 X10^3/uL (1.3-2.9) L 03/22/20 05:22 [place] # (Auto) 0.5 x10^3/uL (0.3-0.8) 03/22/20 05:22 Eos # (Auto) 0.0 x10^3/uL (0.0-0.2) 03/22/20 05:22 Baso # (Auto) 0.0 X10^3/uL (0.0-0.1) 03/22/20 05:22 Absolute Nucleated RBC 0.0 /100WBC 03/22/20 05:22 Total Counted 100 03/22/20 05:22 Neutrophils % (Manual) 87 % (39-76) H 03/22/20 05:22 Band Neutrophils % 1 % (0-10) 03/22/20 05:22 Lymphocytes % (Manual) 2 % (13-43) L 03/22/20 05:22 Monocytes % (Manual) 9 % (4-9) 03/22/20 05:22 Metamyelocytes % 1 03/22/20 05:22 Plt Morphology Comment Normal (NORMAL) 03/22/20 05:22 RBC Morphology Normal (NORMAL) 03/22/20 05:22 ESR 89 MM/HOUR (0-20) H 03/12/20 09:45 PT 12.5 SECONDS (11.8-14.3) 03/12/20 09:45 INR Target Range - 03/12/20 09:45 INR 0.96 (0.8-1.3) 03/12/20 09:45 APTT 27.8 SECONDS (22.9-36.5) 03/12/20 09:45 PTT Comment - 03/12/20 09:45 D-Dimer 0.99 ug/ml (0.0-0.57) H* 03/22/20 05:22 Sample Site Rr 03/22/20 05:25 ABG pH 7.390 (7.35-7.45) 03/22/20 05:25 ABG pCO2 40.0 mmHg (35.0-45.0) 03/22/20 05:25 ABG pO2 126.0 mmHg (80.0-100.0) H 03/22/20 05:25 ABG HCO3 24.2 mmol/L (22-26) 03/22/20 05:25 ABG O2 Saturation 99.0 % (90-100) 03/22/20 05:25 ABG Base Excess -0.7 mmol/L (-2.0-2.0) 03/22/20 05:25 Red Test Pos 03/22/20 05:25 A-a Gradient 537.0 mmHg 03/22/20 05:25 FiO2 100.0 03/22/20 05:25 Blood Gas Comments David well, kh 03/22/20 05:25 Sodium 140 mmol/L (136-145) 03/22/20 05:22 Corrected Sodium 146 mmol/L (136-145) H 03/22/20 05:22 Potassium 4.9 mmol/L (3.5-5.1) 03/22/20 05:22 Chloride 107 mmol/L (98-107) 03/22/20 05:22 Carbon Dioxide 24.4 mmol/L (21-32) 03/22/20 05:22 BUN 41 mg/dL (7-18) H 03/22/20 05:22 Creatinine 1.42 mg/dL (0.55-1.02) H 03/22/20 05:22 Est GFR (MDRD) Af Amer 47 (>60) L 03/22/20 05:22 Est GFR (MDRD) Non-Af 39 (>60) L 03/22/20 05:22 Glucose 359 mg/dL (65-99) H 03/22/20 05:22 POC Glucose (mg/dL) 372 mg/dL (65-99) H 03/22/20 17:17 Lactic Acid 7.9 mmol/L (0.4-2.0) H 03/12/20 09:45 Calcium 8.0 mg/dL (8.5-10.1) L 03/22/20 05:22 Corrected Calcium 9.8 mg/dL (8.5-10.1) 03/22/20 05:22 Magnesium 2.1 mg/dL (1.7-2.9) 03/17/20 07:32 Ferritin 129 ng/mL (8-252) 03/22/20 05:22 Total Bilirubin 0.20 mg/dL (0.2-1.0) 03/22/20 05:22 AST 43 Units/L (15-37) H 03/22/20 05:22 ALT 33 Units/L (12-78) 03/22/20 05:22 Alkaline Phosphatase 252 Units/L (46-116) H 03/22/20 05:22 Creatine Kinase 57 Units/L (26-192) 03/12/20 16:10 CK-MB (CK-2) 1.6 ng/mL (0-4.0) 03/12/20 16:10 CK/CKMB % Calc 2.8 % (<4) 03/12/20 16:10 Troponin I 0.18 ng/mL (0-1.5) 03/12/20 16:10 C-Reactive Protein 2.10 mg/L (0-3.0) 03/22/20 05:22 B-Natriuretic Peptide 80.4 pg/mL (0-79) H 03/22/20 05:22 Total Protein 6.0 g/dL (6.4-8.2) L 03/22/20 05:22 Albumin 1.7 g/dL (3.4-5.0) L 03/22/20 05:22 Globulin 4.3 g/dL (2.5-4.5) 03/22/20 05:22 Albumin/Globulin Ratio 0.4 Ratio (1.1-2.1) L 03/22/20 05:22 Prealbumin 15.4 mg/dL (18-35.7) L 03/22/20 05:25 Specimen Type Clean catch urine 03/12/20 09:45 Urine Color Yellow (YELLOW) 03/12/20 09:45 Urine Appearance Slightly hazy (CLEAR) 03/12/20 09:45 Urine pH 5.0 (5.0 - 8.0) 03/12/20 09:45 Ur Specific [place] 1.025 (1.000-1.030) 03/12/20 09:45 Urine Protein 4+ (NEGATIVE) 03/12/20 09:45 Urine Glucose (UA) Negative (NEGATIVE) 03/12/20 09:45 Urine Ketones Negative (NEGATIVE) 03/12/20 09:45 Urine Occult Blood 2+ (NEGATIVE) 03/12/20 09:45 Urine Nitrite Negative (NEGATIVE) 03/12/20 09:45 Urine Bilirubin Negative (NEGATIVE) 03/12/20 09:45 Urine Urobilinogen Normal (NORMAL) 03/12/20 09:45 Ur Leukocyte Esterase Negative (NEGATIVE) 03/12/20 09:45 Urine RBC 3-5 /HPF (0-3) A 03/12/20 09:45 Urine WBC 0-2 /HPF (0-5) 03/12/20 09:45 Ur Squamous Epith Cells Few /HPF (NEGATIVE) 03/12/20 09:45 Amorphous Sediment Trace /HPF (NEGATIVE) 03/12/20 09:45 Urine Bacteria Trace /HPF (NEGATIVE) 03/12/20 09:45 Hyaline Casts Few /LPF (NEGATIVE) 03/12/20 09:45 Ur Culture Indicated? No/not indicated 03/12/20 09:45 Theophylline 5.1 ug/mL (10-20) L 03/22/20 05:22 Acetone, Semi-Quant Negative (NEGATIVE) 03/18/20 16:30 SARS CoV-2 RNA Rapid FRANCISCO JAVIER Positive (NEGATIVE) A 03/12/20 10:23 Blood Type A POSITIVE 03/19/20 09:00 - Plan (1) Pneumonia due to COVID-19 virus Status: Acute Plan: BIPAP, NS AT 75 ML/HR, ALBUMIN 25% IV DAILY, FORTAZ 1G IV Q12H, LEVAQUIN 750MG IV Q48H, ALBUTEROL NEBS QID, MUCOMYST IN NEBS QID, PULMICORT NEBS BID, ASCORBIC ACID 1500MG IV Q6H, CLONIDINE 0.2MG/HR TD PATCH, LIPITOR 80MG PO HS, NYSTATIN POWDER, TPN, TESSALON PERLES 200MG PO TID, ZYRTEC 10MG PO DAILY, TUSSI ONEX 5ML PO Q12H PRN, COLACE 100MG PO HS, LOVENOX BID, PEPCID 20MG PO BID, DIFLUCAN 100MG PO DAILY, ROBITUSSIN DM 10ML PO QID, IVERMECTIN- PHARMACY TO DOSE, MAGIC MOUTHWASH QID, MILK OF MAG BID PRN, MELATONIN 10MG PO HS, SOLU- MEDROL 125MG IV Q6H, SINGULAIR 10MG PO HS, PROTONIX 40MG PO DAILY, THIAMINE 200MG IV BID, AND ZINC SULFATE 220MG PO DAILY (2) Hypoxia Status: Acute (3) Acute respiratory failure Status: Acute Qualifiers: Respiratory failure complication: hypoxia Qualified Code(s): J96.01 - Acute respiratory failure with hypoxia (4) Right arm pain Status: Acute Plan: OBTAIN VENOUS DOPPLER
[2020-03-22] MEDS: MELATONIN PO SCH (21:08)
[2020-03-22] MEDS: ZOLOFT PO SCH (21:08)
[2020-03-22] MEDS: LIPITOR TAB 80 MG PO SCH (21:08)
[2020-03-22] MEDS: SINGULAIR TAB 10 MG PO SCH (21:08)
[2020-03-23] MEDS: MVI IV SCH ×12 (00:36→16:18)
[2020-03-23] MEDS: [UNRECOGNIZED DRUG - OTHER] IV SCH ×12 (00:36→16:18)
[2020-03-23] MEDS: CLINIMIX IV SCH ×12 (00:36→16:18)
[2020-03-23] MEDS: TPN ELECTROLYTES IV SCH ×12 (00:36→16:18)
[2020-03-23] MEDS: LEVAQUIN PREMIX IV 750 MG 750 MG/150 ML BAG IV SCH (00:38)
[2020-03-23] MEDS: KENALOG CREAM TOP SCH ×3 (00:39→21:58)
[2020-03-23] MEDS: LIPOSYN III 20% 100ML 100 ML IV SCH ×2 (00:40→21:40)
[2020-03-23] MEDS: MAGIC MOUTHWASH MT SCH ×4 (00:41→21:40)
[2020-03-23] MEDS: ROBITUSSIN DM PO SCH ×4 (00:42→21:40)
[2020-03-23] MEDS: HumuLIN R SUBCUT PRN ×5 (01:36→22:30)
[2020-03-23] MEDS: SOLU-Medrol 125 MG VIAL IVP SCH ×4 (02:57→21:40)
[2020-03-23] MEDS: TUSSIONEX PENNKINETIC SUSP PO PRN ×2 (02:59→22:00)
[2020-03-23 04:22] LABS: ABG ALLEN TEST POS; ABG BASE EXCESS 1.3 mmol/L (-2.0-2.0); ABG HCO3 26.6 mmol/L (22-26)
[2020-03-23] MEDS: NEURONTIN CAP 400 MG PO SCH (05:32)
[2020-03-23] MEDS: TESSALON PERLES PO SCH ×3 (05:32→21:40)
[2020-03-23] MEDS: XANAX PO SCH ×3 (05:32→21:40)
[2020-03-23 06:08] LABS: BASOPHILS % (AUTO) 0.4 % (0.2-1.0); HEMOGLOBIN 7.2 g/dL (12.0-16.0); LYMPHOCYTES # (AUTO) 0.2 X10^3/uL (1.3-2.9); LYMPHOCYTES % (AUTO) 2.2 % (21.0-51.0); MEAN CORPUSCULAR HEMOGLOBIN 27.2 pg (27.0-34.0); MEAN CORPUSCULAR HGB CONC 32.7 g/dL (33.0-35.0); MEAN CORPUSCULAR VOLUME 83.3 fL (80.0-100.0); MEAN PLATELET VOLUME 8.7 fL (7.4-11.0); MONOCYTES # (AUTO) 0.2 x10^3/uL (0.3-0.8); MONOCYTES % (AUTO) 2.3 % (0.0-13.0); NEUTROPHILS # (AUTO) 7.3 x10^3/uL (2.2-4.8); NEUTROPHILS % (AUTO) 95.1 % (42.0-75.0); PLATELET COUNT 130 X10^3/uL (150.0-450.0); RED BLOOD COUNT 2.64 X10^6/uL (3.5-5.4); RED CELL DISTRIBUTION WIDTH 14.7 % (11.6-16.5); WHITE BLOOD COUNT 7.7 X10^3/uL (3.6-10.0)
[2020-03-23 06:09] LABS: ALBUMIN 2.1 g/dL (3.4-5.0); CARBON DIOXIDE 25.3 mmol/L (21-32); COR CA(FOR HYPOALB) 9.5 mg/dL (8.5-10.1); CREATININE 1.59 mg/dL (0.55-1.02); TOTAL PROTEIN 5.4 g/dL (6.4-8.2)
[2020-03-23 08:04] LABS: BAND NEUTROPHILS % 2 % (0-10)
[2020-03-23 08:05] LABS: PLATELET MORPHOLOGY COMMENT NORMAL (NORMAL)
--- NOTE | 2020-03-23 09:36 | RAD ---
HISTORYSOBSTUDYCHEST, 1 VIEWCOMPARISONPortable chest March 22, 2020.FINDINGSThe trachea is midline. The cardiac silhouette is mildly enlarged but stable.. There is marked elevation the right hemidiaphragm unchanged from prior day's film. Interstitial infiltrate in the left lung base has increased since yesterday's study. The bony thorax is unremarkable.IMPRESSIONStable cardiomegaly with mild increase in the interstitial infiltrate in the left lung base compared to yesterdays study. There is improved aeration in the right lung base when compared to March 21, 2020.Electronically signed by: VERONICA HAMLIN (Mar 23, 2020 09:34:19)
[2020-03-23] MEDS: ACCUNEB 1.25 MG NEBULE NEB SCH ×4 (09:45→20:35)
[2020-03-23] MEDS: PULMICORT NEB TX 0.5 MG NEB SCH ×2 (09:45→20:35)
[2020-03-23] MEDS: ALBUMIN HUMAN 25%- 100 ML 100 ML IV SCH ×2 (10:30→21:40)
[2020-03-23] MEDS: NYSTATIN POWDER TOP SCH ×2 (10:31→21:40)
[2020-03-23] MEDS: FORTAZ or TAZICEF VIAL INJ 1 G in NS 100 ML IV + SPIKE MINIBAG* 100 ML IV SCH ×2 (10:31→21:40)
[2020-03-23] MEDS ORDERED: NS 500 ML IV 500 ML IV ONE ×2 (10:37→23:55)
[2020-03-23] MEDS ORDERED: LASIX IVP ONE (10:38)
--- NOTE | 2020-03-23 12:19 | RAD ---
HISTORYPAIN, SWELLINGSTUDYHUMERUS, RIGHTCOMPARISONNoneTECHNIQUETwo-view right humerusFINDINGSNo acute fracture, malalignment, or aggressive osseous lesion.IMPRESSIONNo acute humeral fracture.Electronically signed by: Petey Pedroza (Mar 23, 2020 12:17:36)
[2020-03-23] MEDS ORDERED: VERSED ONE (14:25)
[2020-03-23] MEDS ORDERED: XYLOCAINE 1 % (PLAIN) ONE (14:38)
[2020-03-23] MEDS: COLACE CAP 100 MG PO SCH ×2 (14:47→16:58)
[2020-03-23] MEDS: THEO-DUR TAB 300 MG 12-HR PO SCH ×2 (14:48→21:40)
[2020-03-23] MEDS: LOVENOX INJ 120 MG SYR SC SCH (14:50)
[2020-03-23] MEDS: PROCARDIA XL PO SCH ×2 (14:50→21:40)
--- NOTE | 2020-03-23 15:36 | RAD ---
HISTORYCENTRAL LINE PLACEMENTSTUDYCHEST, 1 [id number]/22/2021FINDINGSRight subclavian central venous catheter is in the expected location of the right atrium. This could be a PICC. No pneumothorax.Linear area in the right lung base is probably atelectasis, new since earlier today. Increased opacity in the left lower chest is decreased; some of this could have been to overlying soft tissues.The lungs are clear. No pneumothorax or significant effusion.The heart size is magnified.Bones are unremarkable.EKG leads are noted.IMPRESSION1. Uncomplicated line placementElectronically signed by: Kevin Sorensen (Mar 23, 2020 15:34:26)
[2020-03-23] MEDS: PEPCID TAB 20 MG PO SCH (16:57)
[2020-03-23] MEDS: PROTONIX TAB 40 MG PO SCH (16:57)
[2020-03-23] MEDS: COZAAR PO SCH (16:59)
[2020-03-23] MEDS: ZINC SULFATE PO SCH (17:00)
[2020-03-23] MEDS: DIFLUCAN PO SCH (17:00)
[2020-03-23] MEDS: SYNTHROID 100 mcg TAB PO SCH (17:00)
[2020-03-23] MEDS: VITAMIN D3 125 mcg (5,000 UNITS) PO SCH (17:01)
[2020-03-23] MEDS: ZyrTEC TAB 10 MG PO SCH (17:02)
[2020-03-23] MEDS: NEURONTIN CAP 300 MG PO SCH ×2 (17:03→21:40)
[2020-03-23] MEDS: TYLENOL 325 MG TAB PO PRN (17:23)
[2020-03-23] MEDS: BENADRYL INJ 50 MG VIAL IVP PRN (17:23)
[2020-03-23] MEDS: SNACK - Diabetic Appropriate PO SCH (20:00)
[2020-03-23] MEDS: ULTRAM PO PRN (21:40)
[2020-03-23] MEDS: SINGULAIR TAB 10 MG PO SCH (21:40)
[2020-03-23] MEDS: ZOLOFT PO SCH (21:40)
[2020-03-23] MEDS: MELATONIN PO SCH (21:40)
[2020-03-23] MEDS: LIPITOR TAB 80 MG PO SCH (21:40)
[2020-03-24] MEDS: TYLENOL 325 MG TAB PO PRN
[2020-03-24] MEDS: BENADRYL INJ 50 MG VIAL IVP PRN
[2020-03-24] MEDS ORDERED: LASIX IVP ONE ×3 (03:43→14:16)
[2020-03-24] MEDS: SOLU-Medrol 125 MG VIAL IVP SCH ×4 (03:50→21:37)
[2020-03-24 04:21] LABS: ABG BASE EXCESS 0.3 mmol/L (-2.0-2.0); ABG HCO3 25.4 mmol/L (22-26)
--- NOTE | 2020-03-24 06:27 | RAD ---
HISTORYSOBSTUDYAP [id number]/22/2021FINDINGSThere is no significant change in appearance of heart or lungs. Right diaphragm elevation again noted. Mild nonspecific interstitial prominence in the left base. Right diaphragm elevation limits evaluation of the extreme right lower lobe. Stable position of right subclavian line.IMPRESSIONNo change in appearance of the chest.Electronically signed by: LUIS RAJPUT (Mar 24, 2020 06:26:05)
[2020-03-24 06:37] LABS: ALBUMIN 2.7 g/dL (3.4-5.0); CARBON DIOXIDE 28.5 mmol/L (21-32); CREATININE 1.62 mg/dL (0.55-1.02); TOTAL PROTEIN 5.6 g/dL (6.4-8.2)
[2020-03-24] MEDS: MVI IV SCH ×12 (06:39→17:47)
[2020-03-24] MEDS: CLINIMIX IV SCH ×12 (06:39→17:47)
[2020-03-24] MEDS: [UNRECOGNIZED DRUG - OTHER] IV SCH ×12 (06:39→17:47)
[2020-03-24] MEDS: TPN ELECTROLYTES IV SCH ×12 (06:39→17:47)
[2020-03-24] MEDS: NEURONTIN CAP 300 MG PO SCH ×3 (06:40→21:37)
[2020-03-24] MEDS: XANAX PO SCH ×3 (06:40→21:36)
[2020-03-24] MEDS: TESSALON PERLES PO SCH ×3 (06:40→21:36)
[2020-03-24 07:02] LABS: BASOPHILS # (AUTO) 0.2 X10^3/uL (0.0-0.1); BASOPHILS % (AUTO) 1.1 % (0.2-1.0); HEMATOCRIT 21.5 % (36.0-47.0); LYMPHOCYTES # (AUTO) 0.4 X10^3/uL (1.3-2.9); MEAN CORPUSCULAR HEMOGLOBIN 27.6 pg (27.0-34.0); MEAN CORPUSCULAR HGB CONC 31.9 g/dL (33.0-35.0); MEAN CORPUSCULAR VOLUME 86.4 fL (80.0-100.0); MEAN PLATELET VOLUME 9.1 fL (7.4-11.0); MONOCYTES # (AUTO) 0.7 x10^3/uL (0.3-0.8); MONOCYTES % (AUTO) 3.6 % (0.0-13.0); NEUTROPHILS % (AUTO) 93.3 % (42.0-75.0); PLATELET COUNT 209 X10^3/uL (150.0-450.0); RED BLOOD COUNT 2.49 X10^6/uL (3.5-5.4); RED CELL DISTRIBUTION WIDTH 14.8 % (11.6-16.5); WHITE BLOOD COUNT 20.4 X10^3/uL (3.6-10.0)
[2020-03-24 07:22] LABS: HEMOGLOBIN 6.9 g/dL (12.0-16.0)
[2020-03-24] MEDS ORDERED: NS 250 ML IV 0 ML IV ONE (07:37)
[2020-03-24 08:53] LABS: BAND NEUTROPHILS % 3 % (0-10); METAMYELOCYTES % 1; PLATELET MORPHOLOGY COMMENT NORMAL (NORMAL)
[2020-03-24] MEDS: PULMICORT NEB TX 0.5 MG NEB SCH ×2 (09:45→20:15)
[2020-03-24] MEDS: ACCUNEB 1.25 MG NEBULE NEB SCH ×4 (09:45→20:15)
[2020-03-24] MEDS: VISTARIL PO PRN (10:00)
[2020-03-24] MEDS: COLACE CAP 100 MG PO SCH (10:28)
[2020-03-24] MEDS: ZyrTEC TAB 10 MG PO SCH (10:29)
[2020-03-24] MEDS: ZINC SULFATE PO SCH (10:30)
[2020-03-24] MEDS: THEO-DUR TAB 300 MG 12-HR PO SCH ×2 (10:31→21:38)
[2020-03-24] MEDS: VITAMIN D3 125 mcg (5,000 UNITS) PO SCH (10:31)
[2020-03-24] MEDS: SYNTHROID 100 mcg TAB PO SCH (10:31)
[2020-03-24] MEDS: ROBITUSSIN DM PO SCH ×4 (10:32→21:43)
[2020-03-24] MEDS: PROCARDIA XL PO SCH ×2 (10:32→21:38)
[2020-03-24] MEDS: PROTONIX TAB 40 MG PO SCH (10:32)
[2020-03-24] MEDS: MAGIC MOUTHWASH MT SCH ×4 (10:33→22:50)
[2020-03-24] MEDS: PEPCID TAB 20 MG PO SCH (10:33)
[2020-03-24] MEDS: NYSTATIN POWDER TOP SCH (10:33)
[2020-03-24] MEDS: DIFLUCAN PO SCH (10:34)
[2020-03-24] MEDS: FORTAZ or TAZICEF VIAL INJ 1 G in NS 100 ML IV + SPIKE MINIBAG* 100 ML IV SCH ×2 (10:34→21:40)
[2020-03-24] MEDS: KENALOG CREAM TOP SCH ×2 (11:02→22:50)
[2020-03-24] MEDS: COZAAR PO SCH (11:02)
[2020-03-24] MEDS: ALBUMIN HUMAN 25%- 100 ML 100 ML IV SCH ×2 (11:03→21:45)
[2020-03-24] MEDS ORDERED: MORPHINE SULFATE INJ 2 MG INJ IVP PRN (11:04)
--- NOTE | 2020-03-24 11:50 | PCM.PROG ---
Progress Note - Progress Note for Day of Date of Exam: 03/23/20 - Subjective Subjective: IS BEING TREATED FOR PNEUMONIA DUE TO COVID-19 AND HYPOXIA. SHE HAS A PMH OF DIABETES, DYSLIPIDEMIA, AND HTN. TODAY, SHE IS ALERT AND ORIENTED, SITTING UP IN BED ON MORNING ROUNDS. SHE REPORTS SHORTNESS OF BREATH, COUGH, AND WEAKNESS THIS MORNING. SHE DENIES SIGNIFICANT IMPROVEMENT IN SYMPTOMS SINCE YESTERDAY. SHE ALSO CONTINUES WITH PAIN AND SWELLING TO THE RIGHT UPPER ARM. SHE IS CURRENTLY ON THE BIPAP AT 95% FIO2. HER SATURATIONS HAVE BEEN 95- 100% THIS MORNING AND THROUGHOUT THE NIGHT. ON EXAMINATION, HEART IS REGULAR IN RATE AND RHYTHM. BILATERAL LUNGS CONTINUE WITH RALES THROUGHOUT. ABDOMEN IS ROUND, SOFT, AND NON-TENDER WITH NORMAL BOWEL SOUNDS NOTED THROUGHOUT. THERE IS 1+ PITTING EDEMA NOTED TO LOWER EXTREMITIES. HER VITALS THIS MORNING ARE: 97.5-74-20-100%-171/72. LABS WERE OBTAINED. ABNORMAL LAB VALUES INCLUDE THE FOLLOWING: RBC 2.64, HGB 7.2, HCT 22.0, PLT COUNT 130, D-DIMER 0.68, BUN 50, CREATININE 1.59, GLUCOSE 353, CALCIUM 8.0, ALK PHOS 193, TOTAL PROTEIN 5.4, ALBUMIN 2.1, TRIGLYCERIDES 247. ABG REVEALED: PH 7.390, PC02 42, P02 59, HC03 25.4, 02 SAT 90, A-A GRADIENT 459, FI02 80. CHEST XRAY WAS OBTAINED AND REVEALED: No change in appearance of the chest. YESTERDAY, VENOUS DOPPLER OF THE RIGHT ARM REVEALED: 1. Negative examination for DVT. 2. Mixed echotexture, largely echogenic, 7.6 x 4.8 cm masslike soft tissue lesion seen within the right arm in the region of clinical concern which could reflect a large hematoma. However, follow-up with MR imaging with IV contrast is recommended to exclude a bleeding sarcoma versus any other aggressive soft tissue masses in this location. WAS UNSUCCESSFUL WITH CENTRAL LINE YESTERDAY. HE WILL ATTEMPT AGAIN TODAY. SHE IS CURRENTLY RECEIVING NS AT 75 ML/HR, ALBUMIN 25% IV DAILY, APRESOLINE 10MG IV Q4H PRN, FORTAZ 1G IV Q12H, LEVAQUIN 750MG IV Q48H, ALBUTEROL NEBS QID, MUCOMYST IN NEBS QID, PULMICORT NEBS BID, ASCORBIC ACID 1500MG IV Q6H, CLONIDINE 0.2MG/HR TD PATCH, LIPITOR 80MG PO HS, TESSALON PERLES 200MG PO TID, ZYRTEC 10MG PO DAILY, TUSSIONEX 5ML PO Q12H PRN, COLACE 100MG PO HS, LOVENOX BID, PEPCID 20MG PO BID, DIFLUCAN 100MG PO DAILY, ROBITUSSIN DM 10ML PO QID, IVERMECTIN- PHARMACY TO DOSSE, MAGIC MOUTHWASH QID, MILK OF MAG BID PRN, MELATONIN 10MG PO HS, SOLU-MEDROL 125MG IV Q6H, SINGULAIR 10MG PO HS, PROTONIX 40MG PO DAILY, XANAX 0.5MG PO TID, GABAPENTIN 800MG PO TID, THIAMINE 200MG IV BID, HUMULIN R SLIDING SCALE, AND ZINC SULFATE 220MG PO DAILY. TODAY, WE WILL TRANSFUSE 2 UNITS PRBC AND ADMINISTER LASIX 40MG IV X 1 DOSE IN BETWEEN UNITS. WE WILL ALSO OBTAIN AN XRAY OF THE RIGHT HUMERUS. OTHERWISE, WE WILL FOLLOW UP WITH AM LABS, XRAY, ABG, AND CONTINUE TO MONITOR. TIME SPENT ON CLINICAL ASSESSMENT, REVIEWING LABS AND IMAGING, DECISION MAKING, AND DOCUMENTATION GREATER THAN 75 MINUTES. - Past Medical Family Social History Past Med/Fam/Surg Hx: No changes since H&P Allergies: Allergies No Known Drug Allergies Allergy (Verified 03/12/20 09:37) - Review of Systems ROS: No change since H&P - Vital Signs and I&O's Vital Signs: Temperature 96.7 F Pulse Rate [Apical] 87 Pulse Rate 81 Respiratory Rate 20 Blood Pressure [Left Arm] 154/68 Blood Pressure [Right Arm] 171/77 Blood Pressure 189/87 O2 Sat by Pulse Oximetry 95 Intake and Output: Intake & Output 03/21/20 03/22/20 03/23/20 03/24/20 11:59 11:59 11:59 11:59 Intake Total 3196 / 3196 3342 / 3342 1969 / 1969 2312 / 2312 Output Total 1150 / 1150 2800 / 2800 1325 / 1325 1375 / 1375 Balance 2046 / 2046 542 / 542 645 / 645 937 / 937 - Physical Exam Oriented: Person Eyes: Normal Ear: Normal Nose: Normal Throat: Normal Respiratory: Diminished, Rales Cardiovascular: Normal : Normal Auscultation: Bowel Sounds: Normal Palpation: Normal Tenderness: Normal Skin: Normal Musculoskeletal: Normal Psychiatric: Normal Mood Description: Flat Affect: Normal Speech Pattern: Appropriate - Laboratory and Diagnostics Result Diagrams: 03/24/20 06:00 03/24/20 06:00 Labs: 03/12/20 16:17 Blood Blood Culture - Final 03/12/20 16:10 Blood Blood Culture - Final Laboratory WBC 20.4 X10^3/uL (3.6-10.0) H D 03/24/20 06:00 RBC 2.49 X10^6/uL (3.5-5.4) L 03/24/20 06:00 Hgb 6.9 g/dL (12.0-16.0) L* 03/24/20 06:00 Hct 21.5 % (36.0-47.0) L 03/24/20 06:00 MCV 86.4 fL (80.0-100.0) 03/24/20 06:00 MCH 27.6 pg (27.0-34.0) 03/24/20 06:00 MCHC 31.9 g/dL (33.0-35.0) L 03/24/20 06:00 RDW 14.8 % (11.6-16.5) 03/24/20 06:00 Plt Count 209 X10^3/uL (150.0-450.0) 03/24/20 06:00 Plt Count Comment Adequate (ADEQUATE) 03/24/20 06:00 MPV 9.1 fL (7.4-11.0) 03/24/20 06:00 Neut % (Auto) 93.3 % (42.0-75.0) H 03/24/20 06:00 Lymph % (Auto) 2.0 % (21.0-51.0) L 03/24/20 06:00 [place] % (Auto) 3.6 % (0.0-13.0) 03/24/20 06:00 Eos % (Auto) 0.0 % (0.9-2.9) L 03/24/20 06:00 Baso % (Auto) 1.1 % (0.2-1.0) H 03/24/20 06:00 Neut # (Auto) 19.0 x10^3/uL (2.2-4.8) H 03/24/20 06:00 Lymph # (Auto) 0.4 X10^3/uL (1.3-2.9) L 03/24/20 06:00 [place] # (Auto) 0.7 x10^3/uL (0.3-0.8) 03/24/20 06:00 Eos # (Auto) 0.0 x10^3/uL (0.0-0.2) 03/24/20 06:00 Baso # (Auto) 0.2 X10^3/uL (0.0-0.1) H 03/24/20 06:00 Absolute Nucleated RBC 0.0 /100WBC 03/24/20 06:00 Total Counted 100 03/24/20 06:00 Neutrophils % (Manual) 89 % (39-76) H 03/24/20 06:00 Band Neutrophils % 3 % (0-10) 03/24/20 06:00 Lymphocytes % (Manual) 3 % (13-43) L 03/24/20 06:00 Monocytes % (Manual) 4 % (4-9) 03/24/20 06:00 Metamyelocytes % 1 03/24/20 06:00 Plt Morphology Comment Normal (NORMAL) 03/24/20 06:00 RBC Morphology Normal (NORMAL) 03/24/20 06:00 ESR 89 MM/HOUR (0-20) H 03/12/20 09:45 PT 12.5 SECONDS (11.8-14.3) 03/12/20 09:45 INR Target Range - 03/12/20 09:45 INR 0.96 (0.8-1.3) 03/12/20 09:45 APTT 27.8 SECONDS (22.9-36.5) 03/12/20 09:45 PTT Comment - 03/12/20 09:45 D-Dimer 1.00 ug/ml (0.0-0.57) H* 03/24/20 06:00 Sample Site Lb 03/24/20 04:15 ABG pH 7.390 (7.35-7.45) 03/24/20 04:15 ABG pCO2 42.0 mmHg (35.0-45.0) 03/24/20 04:15 ABG pO2 59.0 mmHg (80.0-100.0) L 03/24/20 04:15 ABG HCO3 25.4 mmol/L (22-26) 03/24/20 04:15 ABG O2 Saturation 90.0 % (90-100) 03/24/20 04:15 ABG Base Excess 0.3 mmol/L (-2.0-2.0) 03/24/20 04:15 Red Test N/a 03/24/20 04:15 A-a Gradient 459.0 mmHg 03/24/20 04:15 FiO2 80.0 03/24/20 04:15 Blood Gas Comments David well ae 03/24/20 04:15 Sodium 136 mmol/L (136-145) 03/24/20 06:00 Corrected Sodium 145 mmol/L (136-145) 03/24/20 06:00 Potassium 4.4 mmol/L (3.5-5.1) 03/24/20 06:00 Chloride 102 mmol/L (98-107) 03/24/20 06:00 Carbon Dioxide 28.5 mmol/L (21-32) 03/24/20 06:00 BUN 59 mg/dL (7-18) H 03/24/20 06:00 Creatinine 1.62 mg/dL (0.55-1.02) H 03/24/20 06:00 Est GFR (MDRD) Af Amer 41 (>60) L 03/24/20 06:00 Est GFR (MDRD) Non-Af 34 (>60) L 03/24/20 06:00 Glucose 488 mg/dL (65-99) H 03/24/20 06:00 POC Glucose (mg/dL) 521 mg/dL (65-99) H* 03/24/20 11:27 Lactic Acid 7.9 mmol/L (0.4-2.0) H 03/12/20 09:45 Calcium 8.0 mg/dL (8.5-10.1) L 03/24/20 06:00 Corrected Calcium 9.0 mg/dL (8.5-10.1) 03/24/20 06:00 Phosphorus 3.0 mg/dL (2.6-4.7) 03/23/20 04:20 Magnesium 2.0 mg/dL (1.7-2.9) 03/23/20 04:20 Ferritin 105 ng/mL (8-252) 03/24/20 06:00 Total Bilirubin 0.40 mg/dL (0.2-1.0) 03/24/20 06:00 AST 34 Units/L (15-37) 03/24/20 06:00 ALT 31 Units/L (12-78) 03/24/20 06:00 Alkaline Phosphatase 179 Units/L (46-116) H 03/24/20 06:00 Creatine Kinase 57 Units/L (26-192) 03/12/20 16:10 CK-MB (CK-2) 1.6 ng/mL (0-4.0) 03/12/20 16:10 CK/CKMB % Calc 2.8 % (<4) 03/12/20 16:10 Troponin I 0.18 ng/mL (0-1.5) 03/12/20 16:10 C-Reactive Protein 0.80 mg/L (0-3.0) 03/24/20 06:00 B-Natriuretic Peptide 24.5 pg/mL (0-79) 03/24/20 06:00 Total Protein 5.6 g/dL (6.4-8.2) L 03/24/20 06:00 Albumin 2.7 g/dL (3.4-5.0) L 03/24/20 06:00 Globulin 2.9 g/dL (2.5-4.5) 03/24/20 06:00 Albumin/Globulin Ratio 0.9 Ratio (1.1-2.1) L 03/24/20 06:00 Prealbumin 15.4 mg/dL (18-35.7) L 03/22/20 05:25 Triglycerides 247 mg/dL (0-150) H 03/23/20 04:20 Specimen Type Clean catch urine 03/12/20 09:45 Urine Color Yellow (YELLOW) 03/12/20 09:45 Urine Appearance Slightly hazy (CLEAR) 03/12/20 09:45 Urine pH 5.0 (5.0 - 8.0) 03/12/20 09:45 Ur Specific [place] 1.025 (1.000-1.030) 03/12/20 09:45 Urine Protein 4+ (NEGATIVE) 03/12/20 09:45 Urine Glucose (UA) Negative (NEGATIVE) 03/12/20 09:45 Urine Ketones Negative (NEGATIVE) 03/12/20 09:45 Urine Occult Blood 2+ (NEGATIVE) 03/12/20 09:45 Urine Nitrite Negative (NEGATIVE) 03/12/20 09:45 Urine Bilirubin Negative (NEGATIVE) 03/12/20 09:45 Urine Urobilinogen Normal (NORMAL) 03/12/20 09:45 Ur Leukocyte Esterase Negative (NEGATIVE) 03/12/20 09:45 Urine RBC 3-5 /HPF (0-3) A 03/12/20 09:45 Urine WBC 0-2 /HPF (0-5) 03/12/20 09:45 Ur Squamous Epith Cells Few /HPF (NEGATIVE) 03/12/20 09:45 Amorphous Sediment Trace /HPF (NEGATIVE) 03/12/20 09:45 Urine Bacteria Trace /HPF (NEGATIVE) 03/12/20 09:45 Hyaline Casts Few /LPF (NEGATIVE) 03/12/20 09:45 Ur Culture Indicated? No/not indicated 03/12/20 09:45 Theophylline 5.1 ug/mL (10-20) L 03/22/20 05:22 Acetone, Semi-Quant Negative (NEGATIVE) 03/18/20 16:30 SARS CoV-2 RNA Rapid FRANCISCO JAVIER Positive (NEGATIVE) A 03/12/20 10:23 Blood Type A POSITIVE 03/23/20 11:04 Antibody Screen Negative 03/23/20 11:04 Crossmatch See Detail 03/23/20 11:04 - Plan (1) Pneumonia due to COVID-19 virus Status: Acute Plan: BIPAP, NS AT 75 ML/HR, ALBUMIN 25% IV DAILY, FORTAZ 1G IV Q12H, LEVAQUIN 750MG IV Q48H, ALBUTEROL NEBS QID, MUCOMYST IN NEBS QID, PULMICORT NEBS BID, ASCORBIC ACID 1500MG IV Q6H, CLONIDINE 0.2MG/HR TD PATCH, LIPITOR 80MG PO HS, NYSTATIN POWDER, TPN, TESSALON PERLES 200MG PO TID, ZYRTEC 10MG PO DAILY, TUSSIONEX 5ML PO Q12H PRN, COLACE 100MG PO HS, LOVENOX BID, PEPCID 20MG PO BID, DIFLUCAN 100MG PO DAILY, ROBITUSSIN DM 10ML PO QID, IVERMECTIN- PHARMACY TO DOSE, MAGIC MOUTHWASH QID, MILK OF MAG BID PRN, MELATONIN 10MG PO HS, SOLU- MEDROL 125MG IV Q6H, SINGULAIR 10MG PO HS, PROTONIX 40MG PO DAILY, THIAMINE 200MG IV BID, AND ZINC SULFATE 220MG PO DAILY (2) Hypoxia Status: Acute (3) Acute respiratory failure Status: Acute Qualifiers: Respiratory failure complication: hypoxia Qualified Code(s): J96.01 - Acute respiratory failure with hypoxia (4) Right arm pain Status: Acute Plan: OBTAIN XRAY (5) Anemia Status: Acute Qualifiers: Anemia type: iron deficiency Iron deficiency anemia type: unspecified iron deficiency Qualified Code(s): D50.9 - Iron deficiency anemia, unspecified Plan: TRANSFUSE 2 UNITS PRBC, CONTINUE TO MONITOR
[2020-03-24] MEDS: LEVEMIR SC SCH ×2 (12:00→22:51)
[2020-03-24 12:02] LABS: HEMOGLOBIN 8.8 g/dL (12.0-16.0)
--- NOTE | 2020-03-24 12:05 | PCM.PROG ---
Progress Note - Progress Note for Day of Date of Exam: 03/24/20 - Subjective Subjective: IS BEING TREATED FOR PNEUMONIA DUE TO COVID-19 AND HYPOXIA. SHE HAS A PMH OF DIABETES, DYSLIPIDEMIA, AND HTN. TODAY, SHE IS ALERT AND ORIENTED, SITTING UP IN BED ON MORNING ROUNDS. SHE REPORTS SHORTNESS OF BREATH, COUGH, AND WEAKNESS THIS MORNING. SHE ADMITS TO SLIGHT IMPROVEMENT IN SYMPTOMS THIS MORNING. SHE ALSO CONTINUES WITH PAIN AND SWELLING TO THE RIGHT UPPER ARM. SHE IS CURRENTLY ON THE BIPAP AT 80% FIO2. HER SATURATIONS HAVE BEEN 93-100% THIS MORNING AND THROUGHOUT THE NIGHT. ON EXAMINATION, HEART IS REGULAR IN RATE AND RHYTHM. BILATERAL LUNGS CONTINUE WITH RALES THROUGHOUT. ABDOMEN IS ROUND, SOFT, AND NON-TENDER WITH NORMAL BOWEL SOUNDS NOTED THROUGHOUT. RIGHT UPPER ARM IS NOTED WITH BRUISING AND SWELLING. THERE IS 1+ PITTING EDEMA NOTED TO LOWER EXTREMITIES. HER VITALS THIS MORNING ARE: 97.6-87-20-95%-154/68. LABS WERE OBTAINED. ABNORMAL LAB VALUES INCLUDE THE FOLLOWING: WBC 20.4, RBC 2.49, HGB 6.9, HCT 21.5, D-DIMER 1.00, BUN 59, CREAITNINE 1.62, GLUCOSE 488, CALCIUM 8.0, ALK PHOS 179, TOTAL PROTEIN 5.6, ALBUMIN 2.7. HER BLOOD GLUCOSE LEVELS DID REACH HIGHER THAN 500 LAST NIGHT. ABG REVEALED: PH 7.390, PC02 42, P02 59, HC03 25.4, 02 SAT 90, A-A GRADIENT 459, FI02 80. CHEST XRAY WAS OBTAINED AND REVEALED: No change in appearance of the chest. YESTERDAY, VENOUS DOPPLER OF THE RIGHT ARM REVEALED: 1. No change in appearance of the chest. RIGHT ARM HUMERUS XRAY WAS NEGATIVE FOR ACUTE FRACTURE. WAS ABLE TO PLACE A CENTRAL LINE YESTERDAY. SHE HAS RECEIVED TWO UNITS OF PRBC. SHE IS CURRENTLY RECEIVING NS AT 75 ML/HR, ALBUMIN 25% IV DAILY, APRESOLINE 10MG IV Q4H PRN, FORTAZ 1G IV Q12H, LEVAQUIN 750MG IV Q48H, ALBUTEROL NEBS QID, MUCOMYST IN NEBS QID, PULMICORT NEBS BID, ASCORBIC ACID 1500MG IV Q6H, CLONIDINE 0.2MG/HR TD PATCH, LIPITOR 80MG PO HS, TESSALON PERLES 200MG PO TID, ZYRTEC 10MG PO DAILY, TUSSIONEX 5ML PO Q12H PRN, COLACE 100MG PO HS, LOVENOX BID, PEPCID 20MG PO BID, DIFLUCAN 100MG PO DAILY, ROBITUSSIN DM 10ML PO QID, IVERMECTIN- PHARMACY TO DOSSE, MAGIC MOUTHWASH QID, MILK OF MAG BID PRN, MELATONIN 10MG PO HS, SOLU-MEDROL 125MG IV Q6H, SINGULAIR 10MG PO HS, PROTONIX 40MG PO DAILY, XANAX 0.5MG PO TID, GABAPENTIN 800MG PO TID, THIAMINE 200MG IV BID, HUMULIN R SLIDING SCALE, AND ZINC SULFATE 220MG PO DAILY. TODAY, WE WILL TRANSFUSE AN ADDITIONAL 2 UNITS PRBC AND ADMINISTER LASIX 40MG IV X 1 DOSE IN BETWEEN UNITS. WE WILL ADD MORPHINE 2MG IV Q4H PRN PAIN, LEVEMIR 15 UNITS SC BID, AND DECREASE LOVENOX TO 60MG SC BID. OTHE RWISE, WE WILL FOLLOW UP WITH AM LABS, XRAY, ABG, AND CONTINUE TO MONITOR. TIME SPENT ON CLINICAL ASSESSMENT, REVIEWING LABS AND IMAGING, DECISION MAKING, AND DOCUMENTATION GREATER THAN 75 MINUTES. - Past Medical Family Social History Past Med/Fam/Surg Hx: No changes since H&P Allergies: Allergies No Known Drug Allergies Allergy (Verified 03/12/20 09:37) - Review of Systems ROS: No change since H&P - Vital Signs and I&O's Vital Signs: Temperature 96.7 F Pulse Rate [Apical] 87 Pulse Rate 81 Respiratory Rate 20 Blood Pressure [Left Arm] 154/68 Blood Pressure [Right Arm] 171/77 Blood Pressure 189/87 O2 Sat by Pulse Oximetry 95 Intake and Output: Intake & Output 03/22/20 03/23/20 03/24/20 03/25/20 11:59 11:59 11:59 11:59 Intake Total 3342 / 3342 1969 / 1969 2312 / 2312 Output Total 2800 / 2800 1325 / 1325 1375 / 1375 Balance 542 / 542 645 / 645 937 / 937 - Physical Exam Oriented: Person Eyes: Normal Ear: Normal Nose: Normal Throat: Normal Respiratory: Diminished, Rales Cardiovascular: Normal : Normal Auscultation: Bowel Sounds: Normal Tenderness: Normal Skin: Normal Musculoskeletal: Normal Psychiatric: Normal Mood Description: Flat Affect: Normal Speech Pattern: Appropriate - Laboratory and Diagnostics Result Diagrams: 03/24/20 06:00 03/24/20 06:00 Labs: 03/12/20 16:17 Blood Blood Culture - Final 03/12/20 16:10 Blood Blood Culture - Final Laboratory WBC 20.4 X10^3/uL (3.6-10.0) H D 03/24/20 06:00 RBC 2.49 X10^6/uL (3.5-5.4) L 03/24/20 06:00 Hgb 6.9 g/dL (12.0-16.0) L* 03/24/20 06:00 Hct 21.5 % (36.0-47.0) L 03/24/20 06:00 MCV 86.4 fL (80.0-100.0) 03/24/20 06:00 MCH 27.6 pg (27.0-34.0) 03/24/20 06:00 MCHC 31.9 g/dL (33.0-35.0) L 03/24/20 06:00 RDW 14.8 % (11.6-16.5) 03/24/20 06:00 Plt Count 209 X10^3/uL (150.0-450.0) 03/24/20 06:00 Plt Count Comment Adequate (ADEQUATE) 03/24/20 06:00 MPV 9.1 fL (7.4-11.0) 03/24/20 06:00 Neut % (Auto) 93.3 % (42.0-75.0) H 03/24/20 06:00 Lymph % (Auto) 2.0 % (21.0-51.0) L 03/24/20 06:00 [place] % (Auto) 3.6 % (0.0-13.0) 03/24/20 06:00 Eos % (Auto) 0.0 % (0.9-2.9) L 03/24/20 06:00 Baso % (Auto) 1.1 % (0.2-1.0) H 03/24/20 06:00 Neut # (Auto) 19.0 x10^3/uL (2.2-4.8) H 03/24/20 06:00 Lymph # (Auto) 0.4 X10^3/uL (1.3-2.9) L 03/24/20 06:00 [place] # (Auto) 0.7 x10^3/uL (0.3-0.8) 03/24/20 06:00 Eos # (Auto) 0.0 x10^3/uL (0.0-0.2) 03/24/20 06:00 Baso # (Auto) 0.2 X10^3/uL (0.0-0.1) H 03/24/20 06:00 Absolute Nucleated RBC 0.0 /100WBC 03/24/20 06:00 Total Counted 100 03/24/20 06:00 Neutrophils % (Manual) 89 % (39-76) H 03/24/20 06:00 Band Neutrophils % 3 % (0-10) 03/24/20 06:00 Lymphocytes % (Manual) 3 % (13-43) L 03/24/20 06:00 Monocytes % (Manual) 4 % (4-9) 03/24/20 06:00 Metamyelocytes % 1 03/24/20 06:00 Plt Morphology Comment Normal (NORMAL) 03/24/20 06:00 RBC Morphology Normal (NORMAL) 03/24/20 06:00 ESR 89 MM/HOUR (0-20) H 03/12/20 09:45 PT 12.5 SECONDS (11.8-14.3) 03/12/20 09:45 INR Target Range - 03/12/20 09:45 INR 0.96 (0.8-1.3) 03/12/20 09:45 APTT 27.8 SECONDS (22.9-36.5) 03/12/20 09:45 PTT Comment - 03/12/20 09:45 D-Dimer 1.00 ug/ml (0.0-0.57) H* 03/24/20 06:00 Sample Site Lb 03/24/20 04:15 ABG pH 7.390 (7.35-7.45) 03/24/20 04:15 ABG pCO2 42.0 mmHg (35.0-45.0) 03/24/20 04:15 ABG pO2 59.0 mmHg (80.0-100.0) L 03/24/20 04:15 ABG HCO3 25.4 mmol/L (22-26) 03/24/20 04:15 ABG O2 Saturation 90.0 % (90-100) 03/24/20 04:15 ABG Base Excess 0.3 mmol/L (-2.0-2.0) 03/24/20 04:15 Red Test N/a 03/24/20 04:15 A-a Gradient 459.0 mmHg 03/24/20 04:15 FiO2 80.0 03/24/20 04:15 Blood Gas Comments David well ae 03/24/20 04:15 Sodium 136 mmol/L (136-145) 03/24/20 06:00 Corrected Sodium 145 mmol/L (136-145) 03/24/20 06:00 Potassium 4.4 mmol/L (3.5-5.1) 03/24/20 06:00 Chloride 102 mmol/L (98-107) 03/24/20 06:00 Carbon Dioxide 28.5 mmol/L (21-32) 03/24/20 06:00 BUN 59 mg/dL (7-18) H 03/24/20 06:00 Creatinine 1.62 mg/dL (0.55-1.02) H 03/24/20 06:00 Est GFR (MDRD) Af Amer 41 (>60) L 03/24/20 06:00 Est GFR (MDRD) Non-Af 34 (>60) L 03/24/20 06:00 Glucose 488 mg/dL (65-99) H 03/24/20 06:00 POC Glucose (mg/dL) 521 mg/dL (65-99) H* 03/24/20 11:27 Lactic Acid 7.9 mmol/L (0.4-2.0) H 03/12/20 09:45 Calcium 8.0 mg/dL (8.5-10.1) L 03/24/20 06:00 Corrected Calcium 9.0 mg/dL (8.5-10.1) 03/24/20 06:00 Phosphorus 3.0 mg/dL (2.6-4.7) 03/23/20 04:20 Magnesium 2.0 mg/dL (1.7-2.9) 03/23/20 04:20 Ferritin 105 ng/mL (8-252) 03/24/20 06:00 Total Bilirubin 0.40 mg/dL (0.2-1.0) 03/24/20 06:00 AST 34 Units/L (15-37) 03/24/20 06:00 ALT 31 Units/L (12-78) 03/24/20 06:00 Alkaline Phosphatase 179 Units/L (46-116) H 03/24/20 06:00 Creatine Kinase 57 Units/L (26-192) 03/12/20 16:10 CK-MB (CK-2) 1.6 ng/mL (0-4.0) 03/12/20 16:10 CK/CKMB % Calc 2.8 % (<4) 03/12/20 16:10 Troponin I 0.18 ng/mL (0-1.5) 03/12/20 16:10 C-Reactive Protein 0.80 mg/L (0-3.0) 03/24/20 06:00 B-Natriuretic Peptide 24.5 pg/mL (0-79) 03/24/20 06:00 Total Protein 5.6 g/dL (6.4-8.2) L 03/24/20 06:00 Albumin 2.7 g/dL (3.4-5.0) L 03/24/20 06:00 Globulin 2.9 g/dL (2.5-4.5) 03/24/20 06:00 Albumin/Globulin Ratio 0.9 Ratio (1.1-2.1) L 03/24/20 06:00 Prealbumin 15.4 mg/dL (18-35.7) L 03/22/20 05:25 Triglycerides 247 mg/dL (0-150) H 03/23/20 04:20 Specimen Type Clean catch urine 03/12/20 09:45 Urine Color Yellow (YELLOW) 03/12/20 09:45 Urine Appearance Slightly hazy (CLEAR) 03/12/20 09:45 Urine pH 5.0 (5.0 - 8.0) 03/12/20 09:45 Ur Specific [place] 1.025 (1.000-1.030) 03/12/20 09:45 Urine Protein 4+ (NEGATIVE) 03/12/20 09:45 Urine Glucose (UA) Negative (NEGATIVE) 03/12/20 09:45 Urine Ketones Negative (NEGATIVE) 03/12/20 09:45 Urine Occult Blood 2+ (NEGATIVE) 03/12/20 09:45 Urine Nitrite Negative (NEGATIVE) 03/12/20 09:45 Urine Bilirubin Negative (NEGATIVE) 03/12/20 09:45 Urine Urobilinogen Normal (NORMAL) 03/12/20 09:45 Ur Leukocyte Esterase Negative (NEGATIVE) 03/12/20 09:45 Urine RBC 3-5 /HPF (0-3) A 03/12/20 09:45 Urine WBC 0-2 /HPF (0-5) 03/12/20 09:45 Ur Squamous Epith Cells Few /HPF (NEGATIVE) 03/12/20 09:45 Amorphous Sediment Trace /HPF (NEGATIVE) 03/12/20 09:45 Urine Bacteria Trace /HPF (NEGATIVE) 03/12/20 09:45 Hyaline Casts Few /LPF (NEGATIVE) 03/12/20 09:45 Ur Culture Indicated? No/not indicated 03/12/20 09:45 Theophylline 5.1 ug/mL (10-20) L 03/22/20 05:22 Acetone, Semi-Quant Negative (NEGATIVE) 03/18/20 16:30 SARS CoV-2 RNA Rapid FRANCISCO JAVIER Positive (NEGATIVE) A 03/12/20 10:23 Blood Type A POSITIVE 03/23/20 11:04 Antibody Screen Negative 03/23/20 11:04 Crossmatch See Detail 03/23/20 11:04 - Plan (1) Pneumonia due to COVID-19 virus Status: Acute Plan: BIPAP, NS AT 75 ML/HR, ALBUMIN 25% IV DAILY, FORTAZ 1G IV Q12H, LEVAQUIN 750MG IV Q48H, ALBUTEROL NEBS QID, MUCOMYST IN NEBS QID, PULMICORT NEBS BID, ASCORBIC ACID 1500MG IV Q6H, CLONIDINE 0.2MG/HR TD PATCH, LIPITOR 80MG PO HS, NYSTATIN POWDER, TPN, TESSALON PERLES 200MG PO TID, ZYRTEC 10MG PO DAILY, TUSSIONEX 5ML PO Q12H PRN, COLACE 100MG PO HS, LOVENOX BID, PEPCID 20MG PO BID, DIFLUCAN 100MG PO DAILY, ROBITUSSIN DM 10ML PO QID, IVERMECTIN- PHARMACY TO DOSE, MAGIC MOUTHWASH QID, MILK OF MAG BID PRN, MELATONIN 10MG PO HS, SOLU- MEDROL 125MG IV Q6H, MORPHINE 2 MG IV Q4H PRN PAIN, LEVEMIR 15 UNITS SC BID, SINGULAIR 10MG PO HS, PROTONIX 40MG PO DAILY, THIAMINE 200MG IV BID, AND ZINC SULFATE 220MG PO DAILY (2) Hypoxia Status: Acute (3) Acute respiratory failure Status: Acute Qualifiers: Respiratory failure complication: hypoxia Qualified Code(s): J96.01 - Acute respiratory failure with hypoxia (4) Right arm pain Status: Acute Plan: OBTAIN XRAY (5) Anemia Status: Acute Qualifiers: Anemia type: iron deficiency Iron deficiency anemia type: unspecified iron deficiency Qualified Code(s): D50.9 - Iron deficiency anemia, unspecified Plan: TRANSFUSE 2 UNITS PRBC, CONTINUE TO MONITOR
[2020-03-24] MEDS ORDERED: NS 250 ML IV 250 ML IV ONE (15:25)
[2020-03-24] MEDS: HumuLIN R SUBCUT PRN ×3 (15:34→22:54)
[2020-03-24] MEDS: ZOFRAN INJ 4 MG VIAL IVP PRN (15:35)
[2020-03-24] MEDS: LEVAQUIN PREMIX IV 750 MG 750 MG/150 ML BAG IV SCH (17:30)
[2020-03-24 17:43] LABS: SERUM ACETONE NEGATIVE (NEGATIVE)
[2020-03-24] MEDS ORDERED: LOVENOX INJ 120 MG SYR SC SCH (21:00)
[2020-03-24] MEDS: LIPITOR TAB 80 MG PO SCH (21:36)
[2020-03-24] MEDS: ZOLOFT PO SCH (21:37)
[2020-03-24] MEDS: SINGULAIR TAB 10 MG PO SCH (21:38)
[2020-03-24] MEDS: MELATONIN PO SCH (21:39)
[2020-03-24] MEDS: LIPOSYN III 20% 100ML 100 ML IV SCH (21:39)
[2020-03-24] MEDS: TUSSIONEX PENNKINETIC SUSP PO PRN (21:42)
[2020-03-24] MEDS: SNACK - Diabetic Appropriate PO SCH ×2 (21:44→22:50)
[2020-03-25] MEDS: NYSTATIN POWDER TOP SCH ×3 (01:13→22:09)
[2020-03-25] MEDS: ZOFRAN INJ 4 MG VIAL IVP PRN (01:57)
[2020-03-25] MEDS: SOLU-Medrol 125 MG VIAL IVP SCH ×2 (03:04→10:21)
[2020-03-25] MEDS: MVI IV SCH ×12 (04:34→18:58)
[2020-03-25] MEDS: CLINIMIX IV SCH ×12 (04:34→18:58)
[2020-03-25] MEDS: TPN ELECTROLYTES IV SCH ×12 (04:34→18:58)
[2020-03-25] MEDS: [UNRECOGNIZED DRUG - OTHER] IV SCH ×12 (04:34→18:58)
[2020-03-25] MEDS: APRESOLINE INJ 20 MG VIAL IVP PRN ×3 (04:42→14:15)
[2020-03-25 05:44] LABS: ABG BASE EXCESS 1.5 mmol/L (-2.0-2.0)
[2020-03-25 05:45] LABS: ABG ALLEN TEST POS
[2020-03-25 05:46] LABS: ABG HCO3 25.9 mmol/L (22-26)
[2020-03-25] MEDS: XANAX PO SCH ×3 (05:51→21:58)
[2020-03-25] MEDS: TESSALON PERLES PO SCH ×3 (05:51→23:29)
[2020-03-25] MEDS: NEURONTIN CAP 300 MG PO SCH ×3 (05:51→21:58)
--- NOTE | 2020-03-25 06:22 | RAD ---
HISTORYSOBSTUDYPortable AP [id number] is no significant change in appearance of heart, lungs or mediastinum. Right diaphragm elevation remains. Bilateral infiltrates are similar. No extrapulmonary air or large pleural effusion is identified.IMPRESSIONNo change in degree or distribution of bilateral pneumonia since 1 day prior.Electronically signed by: LUIS RAJPUT (Mar 25, 2020 06:21:13)
[2020-03-25 06:30] LABS: BASOPHILS % (AUTO) 0.1 % (0.2-1.0); HEMATOCRIT 25.1 % (36.0-47.0); HEMOGLOBIN 8.3 g/dL (12.0-16.0); LYMPHOCYTES # (AUTO) 0.2 X10^3/uL (1.3-2.9); LYMPHOCYTES % (AUTO) 1.5 % (21.0-51.0); MEAN CORPUSCULAR HGB CONC 33.2 g/dL (33.0-35.0); MEAN CORPUSCULAR VOLUME 87.3 fL (80.0-100.0); MEAN PLATELET VOLUME 8.4 fL (7.4-11.0); MONOCYTES # (AUTO) 0.5 x10^3/uL (0.3-0.8); MONOCYTES % (AUTO) 3.7 % (0.0-13.0); NEUTROPHILS # (AUTO) 12.8 x10^3/uL (2.2-4.8); NEUTROPHILS % (AUTO) 94.7 % (42.0-75.0); PLATELET COUNT 129 X10^3/uL (150.0-450.0); RED BLOOD COUNT 2.88 X10^6/uL (3.5-5.4); RED CELL DISTRIBUTION WIDTH 15.4 % (11.6-16.5); WHITE BLOOD COUNT 13.6 X10^3/uL (3.6-10.0)
[2020-03-25 08:04] LABS: PLATELET MORPHOLOGY COMMENT NORMAL (NORMAL)
[2020-03-25] MEDS: PULMICORT NEB TX 0.5 MG NEB SCH ×2 (09:10→21:25)
[2020-03-25] MEDS: ACCUNEB 1.25 MG NEBULE NEB SCH ×4 (09:10→21:25)
[2020-03-25] MEDS: ROBITUSSIN DM PO SCH ×5 (10:21→21:59)
[2020-03-25] MEDS: MAGIC MOUTHWASH MT SCH ×4 (10:21→22:05)
[2020-03-25] MEDS ORDERED: LEVEMIR SC ONE (10:22)
[2020-03-25] MEDS: ALBUMIN HUMAN 25%- 100 ML 100 ML IV SCH ×2 (10:22→21:54)
[2020-03-25] MEDS: COZAAR PO SCH (10:23)
[2020-03-25] MEDS: COLACE CAP 100 MG PO SCH ×2 (10:23→21:55)
[2020-03-25] MEDS: THEO-DUR TAB 300 MG 12-HR PO SCH ×2 (10:25→21:59)
[2020-03-25] MEDS: ZINC SULFATE PO SCH (10:29)
[2020-03-25] MEDS: VISTARIL PO PRN (10:29)
[2020-03-25] MEDS: VITAMIN D3 125 mcg (5,000 UNITS) PO SCH (10:29)
[2020-03-25] MEDS: SYNTHROID 100 mcg TAB PO SCH (10:30)
[2020-03-25] MEDS: ZyrTEC TAB 10 MG PO SCH (10:30)
[2020-03-25] MEDS: KENALOG CREAM TOP SCH ×2 (10:30→21:57)
[2020-03-25] MEDS: PROCARDIA XL PO SCH ×2 (10:31→21:59)
[2020-03-25] MEDS: DIFLUCAN PO SCH (10:32)
[2020-03-25] MEDS: MILK OF MAGNESIA PO SCH ×4 (11:03→22:07)
[2020-03-25] MEDS: LEVEMIR SC SCH ×2 (11:32→21:58)
[2020-03-25] MEDS: FORTAZ or TAZICEF VIAL INJ 1 G in NS 100 ML IV + SPIKE MINIBAG* 100 ML IV SCH ×2 (11:33→21:56)
[2020-03-25] MEDS: LASIX IVP SCH ×2 (11:34→21:57)
[2020-03-25 12:07] LABS: HEMATOCRIT 28.5 % (36.0-47.0); HEMOGLOBIN 9.6 g/dL (12.0-16.0)
[2020-03-25] MEDS ORDERED: DILAUDID INJ ONE (13:51)
[2020-03-25] MEDS ORDERED: SOLU-Medrol 40 MG VIAL IVP SCH (14:00)
[2020-03-25] MEDS: DILAUDID INJ IVP PRN ×2 (14:31→19:37)
[2020-03-25] MEDS ORDERED: SNACK - Diabetic Appropriate PO SCH (20:00)
[2020-03-25] MEDS ORDERED: NS 100 ML IV 100 ML IV ONE (20:17)
[2020-03-25] MEDS ORDERED: FORTAZ or TAZICEF VIAL INJ ONE (20:17)
[2020-03-25] MEDS: HumuLIN R SUBCUT PRN (20:30)
[2020-03-25] MEDS ORDERED: PEPCID TAB 20 MG PO SCH (21:00)
[2020-03-25] MEDS ORDERED: PROTONIX TAB 40 MG PO SCH (21:00)
[2020-03-25] MEDS: SNACK - Diabetic Appropriate PO SCH ×2 (21:53→21:54)
[2020-03-25] MEDS: SINGULAIR TAB 10 MG PO SCH (21:56)
[2020-03-25] MEDS: ZOLOFT PO SCH (21:56)
[2020-03-25] MEDS: LIPITOR TAB 80 MG PO SCH (22:03)
[2020-03-25] MEDS: MELATONIN PO SCH (22:06)
--- NOTE | 2020-03-25 22:12 | PCM.PROG ---
Progress Note - Progress Note for Day of Date of Exam: 03/25/20 - Subjective Subjective: IS BEING TREATED FOR PNEUMONIA DUE TO COVID-19 AND HYPOXIA. SHE HAS A PMH OF DIABETES, DYSLIPIDEMIA, AND HTN. TODAY, SHE IS ALERT AND ORIENTED, SITTING UP IN BED ON MORNING ROUNDS. SHE REPORTS SHORTNESS OF BREATH, COUGH, WEAKNESS, AND RIGHT ARM PAIN THIS MORNING. SHE ALSO COMPLAINS OF INCREASED SWELLING. SHE IS CURRENTLY ON THE BIPAP AT 80% FIO2. HER SATURATIONS HAVE BEEN 93-98% THIS MORNING AND THROUGHOUT THE NIGHT. ON EXAMINATION, HEART IS REGULAR IN RATE AND RHYTHM. BILATERAL LUNGS CONTINUE WITH RALES THROUGHOUT. ABDOMEN IS ROUND, SOFT, AND NON-TENDER WITH NORMAL BOWEL SOUNDS NOTED THROUGHOUT. RIGHT UPPER ARM IS NOTED WITH BRUISING AND SWELLING. THERE IS 1+ PITTING EDEMA NOTED TO LOWER EXTREMITIES. HER VITALS THIS MORNING ARE: 97.9-81-20-94%-207/92. LABS WERE OBTAINED. ABNORMAL LAB VALUES INCLUDE THE FOLLOWING: WBC 13.6, RBC 2.88, HGB 8.3, HCT 25.1, PLT COUNT 127, BUN 59, CREATININE 1.62, GLUCOSE 488, CALCIUM 8.0, ALK PHOS 179. HER , TOTAL PROTEIN 5.6, ALBUMIN 2.7. BLOOD GLUCOSE LEVELS DID REACH HIGHER THAN 633 LAST NIGHT. ABG REVEALED: PH 7.430, PC02 39, P02 60, HC03 25.9, 02 SAT 91, A-A GRADIENT 462, FI02 80. CHEST XRAY WAS OBTAINED AND REVEALED: No change in degree or distribution of bilateral pneumonia since 1 day prior. THERE IS A CENTRAL LINE IN PLACE. SHE HAS RECEIVED A TOTAL OF FOUR UNITS OF PRBC SINCE YESTERDAY. WE WILL INCREASE HER LEVEMIR TO 20 UNITS SC BID, DECREASE SOLU-MEDROL TO 80MG IV Q8H, ADD LASIX 40MG IV BID, MILK OF MAGNESIA 15ML PO QID, AND COLACE 100MG PO BID. OTHERWISE, WE WILL CONTINUE WITH CURRENT PLAN OF CARE TODAY. WE WILL FOLLOW UP WITH AM LABS, XRAY, ABG, AND CONTINUE TO MONITOR. TIME SPENT ON CLINICAL ASSESSMENT, REVIEWING LABS AND IMAGING, DECISION MAKING, AND DOCUMENTATION GREATER THAN 75 MINUTES. - Past Medical Family Social History Past Med/Fam/Surg Hx: No changes since H&P Allergies: Allergies No Known Drug Allergies Allergy (Verified 03/12/20 09:37) - Review of Systems ROS: No change since H&P - Vital Signs and I&O's Vital Signs: Temperature 97.7 F Pulse Rate [Left Brachial] 92 Pulse Rate [Apical] 79 Pulse Rate 96 Respiratory Rate 24 Blood Pressure [Left Arm] 180/81 Blood Pressure [Right Arm] 171/77 Blood Pressure 189/87 O2 Sat by Pulse Oximetry 91 Intake and Output: Intake & Output 03/23/20 03/24/20 03/25/20 03/26/20 11:59 11:59 11:59 11:59 Intake Total 1969 / 1969 2312 / 2312 2210 / 2210 360 / 360 Output Total 1325 / 1325 1375 / 1375 3225 / 3225 1500 / 1500 Balance 645 / 645 937 / 937 -1015 / -1015 -1140 / -1140 - Physical Exam Oriented: Person Eyes: Normal Ear: Normal Nose: Normal Throat: Normal Respiratory: Diminished, Rales Cardiovascular: Normal : Normal Auscultation: Bowel Sounds: Normal Tenderness: Normal Skin: Normal Musculoskeletal: Normal Psychiatric: Normal Mood Description: Flat Affect: Normal Speech Pattern: Clear, Appropriate - Laboratory and Diagnostics Result Diagrams: 03/25/20 11:32 03/25/20 19:51 Labs: 03/12/20 16:17 Blood Blood Culture - Final 03/12/20 16:10 Blood Blood Culture - Final Laboratory WBC 13.6 X10^3/uL (3.6-10.0) H 03/25/20 05:43 RBC 2.88 X10^6/uL (3.5-5.4) L 03/25/20 05:43 Hgb 9.6 g/dL (12.0-16.0) L 03/25/20 11:32 Hct 28.5 % (36.0-47.0) L 03/25/20 11:32 MCV 87.3 fL (80.0-100.0) 03/25/20 05:43 MCH 29.0 pg (27.0-34.0) 03/25/20 05:43 MCHC 33.2 g/dL (33.0-35.0) 03/25/20 05:43 RDW 15.4 % (11.6-16.5) 03/25/20 05:43 Plt Count 129 X10^3/uL (150.0-450.0) L 03/25/20 05:43 Plt Count Comment Decreased (ADEQUATE) A 03/25/20 05:43 MPV 8.4 fL (7.4-11.0) 03/25/20 05:43 Neut % (Auto) 94.7 % (42.0-75.0) H 03/25/20 05:43 Lymph % (Auto) 1.5 % (21.0-51.0) L 03/25/20 05:43 [place] % (Auto) 3.7 % (0.0-13.0) 03/25/20 05:43 Eos % (Auto) 0.0 % (0.9-2.9) L 03/25/20 05:43 Baso % (Auto) 0.1 % (0.2-1.0) L 03/25/20 05:43 Neut # (Auto) 12.8 x10^3/uL (2.2-4.8) H 03/25/20 05:43 Lymph # (Auto) 0.2 X10^3/uL (1.3-2.9) L 03/25/20 05:43 [place] # (Auto) 0.5 x10^3/uL (0.3-0.8) 03/25/20 05:43 Eos # (Auto) 0.0 x10^3/uL (0.0-0.2) 03/25/20 05:43 Baso # (Auto) 0.0 X10^3/uL (0.0-0.1) 03/25/20 05:43 Absolute Nucleated RBC 0.1 /100WBC 03/25/20 05:43 Total Counted 100 03/25/20 05:43 Neutrophils % (Manual) 95 % (39-76) H 03/25/20 05:43 Band Neutrophils % 3 % (0-10) 03/24/20 06:00 Lymphocytes % (Manual) 1 % (13-43) L 03/25/20 05:43 Monocytes % (Manual) 4 % (4-9) 03/25/20 05:43 Metamyelocytes % 1 03/24/20 06:00 Plt Morphology Comment Normal (NORMAL) 03/25/20 05:43 RBC Morphology Normal (NORMAL) 03/25/20 05:43 ESR 89 MM/HOUR (0-20) H 03/12/20 09:45 PT 12.5 SECONDS (11.8-14.3) 03/12/20 09:45 INR Target Range - 03/12/20 09:45 INR 0.96 (0.8-1.3) 03/12/20 09:45 APTT 27.8 SECONDS (22.9-36.5) 03/12/20 09:45 PTT Comment - 03/12/20 09:45 D-Dimer 0.77 ug/ml (0.0-0.57) H* 03/25/20 05:43 Sample Site Rr 03/25/20 05:00 ABG pH 7.430 (7.35-7.45) 03/25/20 05:00 ABG pCO2 39.0 mmHg (35.0-45.0) 03/25/20 05:00 ABG pO2 60.0 mmHg (80.0-100.0) L 03/25/20 05:00 ABG HCO3 25.9 mmol/L (22-26) 03/25/20 05:00 ABG O2 Saturation 91.0 % (90-100) 03/25/20 05:00 ABG Base Excess 1.5 mmol/L (-2.0-2.0) 03/25/20 05:00 Red Test Pos 03/25/20 05:00 A-a Gradient 462.0 mmHg 03/25/20 05:00 FiO2 80 03/25/20 05:00 Blood Gas Comments David well sw 03/25/20 05:00 Sodium 136 mmol/L (136-145) 03/24/20 06:00 Corrected Sodium 145 mmol/L (136-145) 03/24/20 06:00 Potassium 4.4 mmol/L (3.5-5.1) 03/24/20 06:00 Chloride 102 mmol/L (98-107) 03/24/20 06:00 Carbon Dioxide 28.5 mmol/L (21-32) 03/24/20 06:00 BUN 59 mg/dL (7-18) H 03/24/20 06:00 Creatinine 1.62 mg/dL (0.55-1.02) H 03/24/20 06:00 Est GFR (MDRD) Af Amer 41 (>60) L 03/24/20 06:00 Est GFR (MDRD) Non-Af 34 (>60) L 03/24/20 06:00 Glucose 579 mg/dL (65-99) H* 03/25/20 19:51 POC Glucose (mg/dL) 459 mg/dL (65-99) H 03/25/20 22:08 Lactic Acid 7.9 mmol/L (0.4-2.0) H 03/12/20 09:45 Calcium 8.0 mg/dL (8.5-10.1) L 03/24/20 06:00 Corrected Calcium 9.0 mg/dL (8.5-10.1) 03/24/20 06:00 Phosphorus 3.0 mg/dL (2.6-4.7) 03/23/20 04:20 Magnesium 2.0 mg/dL (1.7-2.9) 03/23/20 04:20 Ferritin 106 ng/mL (8-252) 03/25/20 05:43 Total Bilirubin 0.40 mg/dL (0.2-1.0) 03/24/20 06:00 AST 34 Units/L (15-37) 03/24/20 06:00 ALT 31 Units/L (12-78) 03/24/20 06:00 Alkaline Phosphatase 179 Units/L (46-116) H 03/24/20 06:00 Creatine Kinase 57 Units/L (26-192) 03/12/20 16:10 CK-MB (CK-2) 1.6 ng/mL (0-4.0) 03/12/20 16:10 CK/CKMB % Calc 2.8 % (<4) 03/12/20 16:10 Troponin I 0.18 ng/mL (0-1.5) 03/12/20 16:10 C-Reactive Protein 1.00 mg/L (0-3.0) 03/25/20 05:43 B-Natriuretic Peptide 25.5 pg/mL (0-79) 03/25/20 05:43 Total Protein 5.6 g/dL (6.4-8.2) L 03/24/20 06:00 Albumin 2.7 g/dL (3.4-5.0) L 03/24/20 06:00 Globulin 2.9 g/dL (2.5-4.5) 03/24/20 06:00 Albumin/Globulin Ratio 0.9 Ratio (1.1-2.1) L 03/24/20 06:00 Prealbumin 15.4 mg/dL (18-35.7) L 03/22/20 05:25 Triglycerides 247 mg/dL (0-150) H 03/23/20 04:20 Specimen Type Clean catch urine 03/12/20 09:45 Urine Color Yellow (YELLOW) 03/12/20 09:45 Urine Appearance Slightly hazy (CLEAR) 03/12/20 09:45 Urine pH 5.0 (5.0 - 8.0) 03/12/20 09:45 Ur Specific [place] 1.025 (1.000-1.030) 03/12/20 09:45 Urine Protein 4+ (NEGATIVE) 03/12/20 09:45 Urine Glucose (UA) Negative (NEGATIVE) 03/12/20 09:45 Urine Ketones Negative (NEGATIVE) 03/12/20 09:45 Urine Occult Blood 2+ (NEGATIVE) 03/12/20 09:45 Urine Nitrite Negative (NEGATIVE) 03/12/20 09:45 Urine Bilirubin Negative (NEGATIVE) 03/12/20 09:45 Urine Urobilinogen Normal (NORMAL) 03/12/20 09:45 Ur Leukocyte Esterase Negative (NEGATIVE) 03/12/20 09:45 Urine RBC 3-5 /HPF (0-3) A 03/12/20 09:45 Urine WBC 0-2 /HPF (0-5) 03/12/20 09:45 Ur Squamous Epith Cells Few /HPF (NEGATIVE) 03/12/20 09:45 Amorphous Sediment Trace /HPF (NEGATIVE) 03/12/20 09:45 Urine Bacteria Trace /HPF (NEGATIVE) 03/12/20 09:45 Hyaline Casts Few /LPF (NEGATIVE) 03/12/20 09:45 Ur Culture Indicated? No/not indicated 03/12/20 09:45 Theophylline 5.1 ug/mL (10-20) L 03/22/20 05:22 Acetone, Semi-Quant Negative (NEGATIVE) 03/24/20 17:15 SARS CoV-2 RNA Rapid FRANCISCO JAVIER Positive (NEGATIVE) A 03/12/20 10:23 Blood Type A POSITIVE 03/25/20 15:39 Antibody Screen Negative 03/23/20 11:04 Crossmatch See Detail 03/23/20 11:04 Tx React Symptoms Back pain,anxiety 03/25/20 15:39 - Plan (1) Pneumonia due to COVID-19 virus Status: Acute Plan: BIPAP, NS AT 75 ML/HR, ALBUMIN 25% IV DAILY, FORTAZ 1G IV Q12H, LEVAQUIN 750MG IV Q48H, ALBUTEROL NEBS QID, MUCOMYST IN NEBS QID, PULMICORT NEBS BID, ASCORBIC ACID 1500MG IV Q6H, CLONIDINE 0.2MG/HR TD PATCH, LIPITOR 80MG PO HS, NYSTATIN POWDER, TPN, TESSALON PERLES 200MG PO TID, ZYRTEC 10MG PO DAILY, TUSSIONEX 5ML PO Q12H PRN, COLACE 100MG PO HS, LOVENOX BID, PEPCID 20MG PO BID, DIFLUCAN 100MG PO DAILY, ROBITUSSIN DM 10ML PO QID, IVERMECTIN- PHARMACY TO DOSE, MAGIC MOUTHWASH QID, MILK OF MAG BID PRN, MELATONIN 10MG PO HS, SOLU- MEDROL 125MG IV Q6H, MORPHINE 2 MG IV Q4H PRN PAIN, LEVEMIR 15 UNITS SC BID, SINGULAIR 10MG PO HS, PROTONIX 40MG PO DAILY, THIAMINE 200MG IV BID, AND ZINC SULFATE 220MG PO DAILY (2) Hypoxia Status: Acute (3) Acute respiratory failure Status: Acute Qualifiers: Respiratory failure complication: hypoxia Qualified Code(s): J96.01 - Acute respiratory failure with hypoxia (4) Right arm pain Status: Acute Plan: OBTAIN XRAY (5) Anemia Status: Acute Qualifiers: Anemia type: iron deficiency Iron deficiency anemia type: unspecified iron deficiency Qualified Code(s): D50.9 - Iron deficiency anemia, unspecified Plan: TRANSFUSE 2 UNITS PRBC, CONTINUE TO MONITOR
[2020-03-25] MEDS: LIPOSYN III 20% 100ML 100 ML IV SCH (23:28)
[2020-03-26] MEDS: ULTRAM PO PRN (02:47)
[2020-03-26] MEDS: VISTARIL PO PRN (02:48)
[2020-03-26 04:48] LABS: ABG ALLEN TEST POSS; ABG HCO3 28.2 mmol/L (22-26)
[2020-03-26] MEDS ORDERED: AMIDATE INJ 40 MG VIAL ONE (05:31)
[2020-03-26] MEDS ORDERED: QUELICIN (OR ANECTINE) ONE (05:31)
[2020-03-26] MEDS: NEURONTIN CAP 300 MG PO SCH ×3 (05:38→20:50)
[2020-03-26] MEDS: XANAX PO SCH (05:39)
[2020-03-26] MEDS: TESSALON PERLES PO SCH (05:39)
[2020-03-26] MEDS ORDERED: KETALAR ONE (05:50)
[2020-03-26] MEDS ORDERED: NORCURON INJ 10 MG VIAL ONE ×4 (05:56→05:57)
[2020-03-26] MEDS ORDERED: ATIVAN 20 MG/10 ML VIAL ONE (06:06)
[2020-03-26] MEDS ORDERED: NS 100 ML IV 100 ML IV ONE (06:06)
[2020-03-26] MEDS: ATIVAN 20 MG/10 ML VIAL 20 MG in NS 100 ML IV 90 ML IV PRN ×2 (06:15→11:10)
[2020-03-26] MEDS: NORCURON INJ 10 MG VIAL 50 MG in NS 50 ML IV 50 ML IV PRN ×5 (06:15→23:45)
--- NOTE | 2020-03-26 06:18 | RAD ---
HISTORYET tube placementSTUDYChest AP [id number] is a new endotracheal tube in good position above the srinath a. There is a right-sided central line with its tip in the right atrium. Hypo inflation accentuates t he heart size. It is likely increased. Bilateral infiltrates are unchanged. The right hemidiaphragm i s chronically elevated. No pleural effusions are identified. Bony thorax is unremarkable.IMPRESSIONEn dotracheal tube in good positionNo change mild cardiomegaly without congestive heart failureNo change bilateral infiltratesElectronically signed by: YAKELIN DAMIAN (Mar 26, 2020 06:16:56)
[2020-03-26] MEDS: HumuLIN R SUBCUT PRN ×3 (06:22→22:41)
[2020-03-26 06:26] LABS: BASOPHILS % (AUTO) 0.1 % (0.2-1.0); EOSINOPHILS % (AUTO) 0.1 % (0.9-2.9); HEMATOCRIT 28.8 % (36.0-47.0); HEMOGLOBIN 9.7 g/dL (12.0-16.0); LYMPHOCYTES # (AUTO) 0.6 X10^3/uL (1.3-2.9); LYMPHOCYTES % (AUTO) 2.6 % (21.0-51.0); MEAN CORPUSCULAR HGB CONC 33.6 g/dL (33.0-35.0); MEAN CORPUSCULAR VOLUME 86.5 fL (80.0-100.0); MEAN PLATELET VOLUME 8.6 fL (7.4-11.0); MONOCYTES # (AUTO) 0.8 x10^3/uL (0.3-0.8); MONOCYTES % (AUTO) 3.8 % (0.0-13.0); NEUTROPHILS # (AUTO) 20.5 x10^3/uL (2.2-4.8); NEUTROPHILS % (AUTO) 93.4 % (42.0-75.0); PLATELET COUNT 140 X10^3/uL (150.0-450.0); RED BLOOD COUNT 3.33 X10^6/uL (3.5-5.4); RED CELL DISTRIBUTION WIDTH 15.9 % (11.6-16.5)
[2020-03-26] MEDS ORDERED: QUELICIN (OR ANECTINE) IVP ONE (06:31)
[2020-03-26] MEDS ORDERED: AMIDATE INJ 40 MG VIAL IVP ONE (06:31)
[2020-03-26 06:41] LABS: ALANINE AMINOTRANSFERASE 37 Units/L (12-78); ALBUMIN 3.6 g/dL (3.4-5.0); ALKALINE PHOSPHATASE 251 Units/L (46-116); ASPARTATE AMINO TRANSFERASE 49 Units/L (15-37); BLOOD UREA NITROGEN 66 mg/dL (7-18); CALCIUM 8.8 mg/dL (8.5-10.1); CARBON DIOXIDE 25.7 mmol/L (21-32); CHLORIDE 101 mmol/L (98-107); COR NA(FOR HYPERGLY) 144 mmol/L (136-145); CREATININE 1.66 mg/dL (0.55-1.02); MAGNESIUM 2.1 mg/dL (1.7-2.9); PHOSPHORUS 2.4 mg/dL (2.6-4.7); SODIUM 138 mmol/L (136-145); TOTAL PROTEIN 6.6 g/dL (6.4-8.2); TRIGLYCERIDES 332 mg/dL (0-150); eGFR NON BLACK RACES 33 (>60)
[2020-03-26 07:11] LABS: BAND NEUTROPHILS % 2 % (0-10); PLATELET MORPHOLOGY COMMENT NORMAL (NORMAL)
[2020-03-26 07:43] LABS: ABG BASE EXCESS -2.9 mmol/L (-2.0-2.0); ABG HCO3 27.4 mmol/L (22-26)
[2020-03-26 07:45] LABS: ABG ALLEN TEST POSS
[2020-03-26] MEDS: NYSTATIN POWDER TOP SCH ×2 (09:15→20:45)
[2020-03-26] MEDS: KENALOG CREAM TOP SCH ×2 (09:15→21:05)
[2020-03-26] MEDS: LASIX IVP SCH (09:29)
[2020-03-26] MEDS: LEVEMIR SC SCH ×2 (09:29→20:35)
[2020-03-26] MEDS: ALBUMIN HUMAN 25%- 100 ML 100 ML IV SCH ×2 (09:30→21:45)
[2020-03-26] MEDS: ACCUNEB 1.25 MG NEBULE NEB SCH ×3 (09:45→21:11)
[2020-03-26] MEDS: PULMICORT NEB TX 0.5 MG NEB SCH ×2 (09:45→21:11)
[2020-03-26] MEDS ORDERED: LEVEMIR SC ONE (10:15)
[2020-03-26] MEDS: NS 1000 ML 1,000 ML IV SCH (12:01)
--- NOTE | 2020-03-26 12:01 | RAD ---
HISTORYNG tube placementSTUDYAbdomenCOMPARISONNoneFINDINGSThere is a nasogastric tube in good position within the st omach. The upper abdominal gas pattern is nonspecific. Patient's lung infiltrates are again identifie d.IMPRESSIONNG tube in good position within the stomachElectronically signed by: YAKELIN DAMIAN (Mar 032020 12:00:04)
[2020-03-26] MEDS: COLACE CAP 100 MG PO SCH (13:50)
[2020-03-26] MEDS: MILK OF MAGNESIA PO SCH ×4 (13:52→20:50)
[2020-03-26] MEDS: PROCARDIA XL PO SCH (13:52)
[2020-03-26] MEDS: COZAAR PO SCH (14:59)
[2020-03-26] MEDS: DIFLUCAN PO SCH (15:00)
[2020-03-26] MEDS: ROBITUSSIN DM PO SCH ×4 (15:00→20:50)
[2020-03-26] MEDS: FORTAZ or TAZICEF VIAL INJ 1 G in NS 100 ML IV + SPIKE MINIBAG* 100 ML IV SCH ×2 (15:01→21:05)
[2020-03-26] MEDS: SYNTHROID 100 mcg TAB PO SCH (15:02)
[2020-03-26] MEDS: VITAMIN D3 125 mcg (5,000 UNITS) PO SCH (15:02)
[2020-03-26] MEDS: ZINC SULFATE PO SCH (15:03)
[2020-03-26] MEDS: ZyrTEC TAB 10 MG PO SCH (15:04)
[2020-03-26] MEDS: VERSED IV PREMIX 100 MG/100 ML IV.SOLN IV PRN (15:40)
[2020-03-26] MEDS: CLINIMIX IV SCH ×6 (17:24)
[2020-03-26] MEDS: MVI IV SCH ×6 (17:24)
[2020-03-26] MEDS: [UNRECOGNIZED DRUG - OTHER] IV SCH ×6 (17:24)
[2020-03-26] MEDS: TPN ELECTROLYTES IV SCH ×6 (17:24)
[2020-03-26] MEDS: LEVAQUIN PREMIX IV 750 MG 750 MG/150 ML BAG IV SCH (17:24)
[2020-03-26] MEDS ORDERED: SNACK - Diabetic Appropriate PO SCH (20:00)
[2020-03-26] MEDS: PEPCID 20 MG IV PREMIX IV SCH (20:22)
[2020-03-26] MEDS: LIPITOR TAB 80 MG PO SCH (20:50)
[2020-03-26] MEDS: SINGULAIR TAB 10 MG PO SCH (20:50)
[2020-03-26] MEDS: COLACE SYRUP 100 MG UDC PO SCH (20:50)
[2020-03-26] MEDS: ZOLOFT PO SCH (20:50)
[2020-03-26] MEDS: PROTONIX INJ 40 MG VIAL IVP SCH (21:00)
[2020-03-26] MEDS: LIPOSYN III 20% 100ML 100 ML IV SCH (21:15)
--- NOTE | 2020-03-26 22:17 | PCM.PROG ---
Progress Note - Progress Note for Day of Date of Exam: 03/26/20 - Subjective Subjective: IS BEING TREATED FOR PNEUMONIA DUE TO COVID-19 AND HYPOXIA. SHE HAS A PMH OF DIABETES, DYSLIPIDEMIA, AND HTN. AT APPROXIMATELY 5:00am, PATIENTS OXYGEN SATURATIONS DROPPED TO 79-80% ON THE BIPAP AT 100% FIO2. AFTER REPOSITIONING AND BREATHING EXERCISES, PATIENTS SATURATIONS INCREASED TO 84%. AFTER SATURATIONS CONTINUED TO DROP TO LOWER 80s, DECISION WAS MADE TO INTUBATE PATIENT. PATIENT AND FAMILY WERE IN AGREEMENT. THEY REQUESTED TRANSFER TO LEVEL OF HIGHER CARE, HOWEVER, THE BED BOARD REPORTS THAT NO BEDS ARE AVAILABLE. PRIOR TO INTUBATION THIS MORNING, ABG WAS OBTAINED AND REVEALED THE FOLLOWING: PH 7.360, PC02 50, P02 54, HC03 28.2, 02 SAT 86, A-A GRADIENT 597, FI02 100. SHE WAS SUCCESSFULLY INTUBATED BY THE ER PHYSICIAN. SETTINGS ARE: A/C, VENT RATE 25, TIDAL VOLUME 400, PEAK FLOW 50, PEEP 16, FI02 100. AFTER INTUBATION, ABG WAS PH 7.160, PC02 77, P02 148, HC03 27.4, 02 SAT 99, BASE EXCESS -2.9, A-A GRADIENT 469, FI02 100. ON EXAMINATION, HEART IS REGULAR IN RATE AND RHYTHM. BILATERAL LUNGS CONTINUE WITH RALES THROUGHOUT. ABDOMEN IS ROUND, SOFT, AND NON-TENDER WI TH NORMAL BOWEL SOUNDS NOTED THROUGHOUT. RIGHT UPPER ARM IS NOTED WITH BRUISING AND SWELLING. THERE IS 1+ PITTING EDEMA NOTED TO LOWER EXTREMITIES. HER VITALS THIS MORNING ARE: 97.5-89-32-93%-139/65. LABS WERE OBTAINED. ABNORMAL LAB VALUES INCLUDE THE FOLLOWING: WBC 22.0, RBC 3.33, HGB 9.7, HCT 28.8, PLT COUNT 140, D- DIMER 1.25, BUN 66, CREATININE 1.66, GLUCOSE 366, PHOSPHORUS 2.4, AST 49, ALK PHOS 251, CRP 9.70, BNP 86.2, TRIGLYCERIDES 332. BLOOD GLUCOSE LEVELS REMAIN ELEVATED, BUT HAVE IMPROVED SLIGHTLY SINCE YESTERDAY. CHEST XRAY WAS OBTAINED AND REVEALED: Endotracheal tube in good position. No change mild cardiomegaly without congestive heart failure. No change bilateral infiltrates. THERE IS A CENTRAL LINE IN PLACE. SHE HAS RECEIVED A TOTAL OF FOUR UNITS OF PRBC SINCE YESTERDAY. WE WILL INCREASE HER LEVEMIR TO 25 UNITS SC BID, HOLD LASIX, ADD NORMAL SALINE AT 100 ML/HR, AND PLACE AN NG TUBE. WE WILL GIVE GLUCERNA 1 CAN TID. OTHERWISE, WE WILL CONTINUE WITH CURRENT PLAN OF CARE TODAY. WE WILL FOLLOW UP WITH AM LABS, XRAY, ABG, AND CONTINUE TO MONITOR. TIME SPENT ON CLINICAL ASSESSMENT, REVIEWING LABS AND IMAGING, DECISION MAKING, AND DOCUMENTATION GREATER THAN 75 MINUTES. - Past Medical Family Social History Past Med/Fam/Surg Hx: No changes since H&P Allergies: Allergies No Known Drug Allergies Allergy (Verified 03/12/20 09:37) - Review of Systems ROS: No change since H&P - Vital Signs and I&O's Vital Signs: Temperature 97.6 F Pulse Rate [Left Brachial] 76 Pulse Rate [Apical] 79 Pulse Rate 83 Respiratory Rate 30 Blood Pressure [Left Arm] 151/61 Blood Pressure [Right Arm] 171/77 Blood Pressure 189/87 O2 Sat by Pulse Oximetry 100 Intake and Output: Intake & Output 03/24/20 03/25/20 03/26/20 03/27/20 11:59 11:59 11:59 11:59 Intake Total 2312 / 2312 2210 / 2210 2420 / 2420 50 / 50 Output Total 1375 / 1375 3225 / 3225 2625 / 2625 500 / 500 Balance 937 / 937 -1015 / -1015 -205 / -205 -450 / -450 - Physical Exam Oriented: Person Eyes: Normal Ear: Normal Nose: Normal Throat: Normal Respiratory: Diminished, Rales Cardiovascular: Normal : Normal Auscultation: Bowel Sounds: Normal Palpation: Normal Tenderness: Normal Skin: Normal Musculoskeletal: Normal Psychiatric: Normal Mood Description: Flat Affect: Normal Speech Pattern: Artificially Ventilated - Laboratory and Diagnostics Result Diagrams: 03/28/20 12:40 03/28/20 05:22 Labs: 03/12/20 16:17 Blood Blood Culture - Final 03/12/20 16:10 Blood Blood Culture - Final Laboratory WBC 22.0 X10^3/uL (3.6-10.0) H D 03/26/20 05:30 RBC 3.33 X10^6/uL (3.5-5.4) L 03/26/20 05:30 Hgb 9.7 g/dL (12.0-16.0) L 03/26/20 05:30 Hct 28.8 % (36.0-47.0) L 03/26/20 05:30 MCV 86.5 fL (80.0-100.0) 03/26/20 05:30 MCH 29.0 pg (27.0-34.0) 03/26/20 05:30 MCHC 33.6 g/dL (33.0-35.0) 03/26/20 05:30 RDW 15.9 % (11.6-16.5) 03/26/20 05:30 Plt Count 140 X10^3/uL (150.0-450.0) L 03/26/20 05:30 Plt Count Comment Decreased (ADEQUATE) A 03/26/20 05:30 MPV 8.6 fL (7.4-11.0) 03/26/20 05:30 Neut % (Auto) 93.4 % (42.0-75.0) H 03/26/20 05:30 Lymph % (Auto) 2.6 % (21.0-51.0) L 03/26/20 05:30 [place] % (Auto) 3.8 % (0.0-13.0) 03/26/20 05:30 Eos % (Auto) 0.1 % (0.9-2.9) L 03/26/20 05:30 Baso % (Auto) 0.1 % (0.2-1.0) L 03/26/20 05:30 Neut # (Auto) 20.5 x10^3/uL (2.2-4.8) H 03/26/20 05:30 Lymph # (Auto) 0.6 X10^3/uL (1.3-2.9) L 03/26/20 05:30 [place] # (Auto) 0.8 x10^3/uL (0.3-0.8) 03/26/20 05:30 Eos # (Auto) 0.0 x10^3/uL (0.0-0.2) 03/26/20 05:30 Baso # (Auto) 0.0 X10^3/uL (0.0-0.1) 03/26/20 05:30 Absolute Nucleated RBC 0.3 /100WBC 03/26/20 05:30 Total Counted 100 03/26/20 05:30 Neutrophils % (Manual) 95 % (39-76) H 03/26/20 05:30 Band Neutrophils % 2 % (0-10) 03/26/20 05:30 Lymphocytes % (Manual) 1 % (13-43) L 03/26/20 05:30 Monocytes % (Manual) 2 % (4-9) L 03/26/20 05:30 Metamyelocytes % 1 03/24/20 06:00 Plt Morphology Comment Normal (NORMAL) 03/26/20 05:30 RBC Morphology Normal (NORMAL) 03/26/20 05:30 ESR 89 MM/HOUR (0-20) H 03/12/20 09:45 PT 12.5 SECONDS (11.8-14.3) 03/12/20 09:45 INR Target Range - 03/12/20 09:45 INR 0.96 (0.8-1.3) 03/12/20 09:45 APTT 27.8 SECONDS (22.9-36.5) 03/12/20 09:45 PTT Comment - 03/12/20 09:45 D-Dimer 1.25 ug/ml (0.0-0.57) H* 03/26/20 05:30 Sample Site R rad 03/26/20 06:50 ABG pH 7.160 (7.35-7.45) L* 03/26/20 06:50 ABG pCO2 77.0 mmHg (35.0-45.0) H* 03/26/20 06:50 ABG pO2 148.0 mmHg (80.0-100.0) H 03/26/20 06:50 ABG HCO3 27.4 mmol/L (22-26) H 03/26/20 06:50 ABG O2 Saturation 99.0 % (90-100) 03/26/20 06:50 ABG Base Excess -2.9 mmol/L (-2.0-2.0) L 03/26/20 06:50 Red Test Poss 03/26/20 06:50 A-a Gradient 469.0 mmHg 03/26/20 06:50 FiO2 100.0 03/26/20 06:50 Blood Gas Comments David well kb 03/26/20 06:50 Sodium 138 mmol/L (136-145) 03/26/20 05:30 Corrected Sodium 144 mmol/L (136-145) 03/26/20 05:30 Potassium 4.0 mmol/L (3.5-5.1) 03/26/20 05:30 Chloride 101 mmol/L (98-107) 03/26/20 05:30 Carbon Dioxide 25.7 mmol/L (21-32) 03/26/20 05:30 BUN 66 mg/dL (7-18) H 03/26/20 05:30 Creatinine 1.66 mg/dL (0.55-1.02) H 03/26/20 05:30 Est GFR (MDRD) Af Amer 40 (>60) L 03/26/20 05:30 Est GFR (MDRD) Non-Af 33 (>60) L 03/26/20 05:30 Glucose 396 mg/dL (65-99) H 03/26/20 21:30 POC Glucose (mg/dL) 402 mg/dL (65-99) H 03/26/20 20:34 Lactic Acid 7.9 mmol/L (0.4-2.0) H 03/12/20 09:45 Calcium 8.8 mg/dL (8.5-10.1) 03/26/20 05:30 Corrected Calcium TNP 03/26/20 05:30 Phosphorus 2.4 mg/dL (2.6-4.7) L 03/26/20 05:30 Magnesium 2.1 mg/dL (1.7-2.9) 03/26/20 05:30 Ferritin 121 ng/mL (8-252) 03/26/20 05:30 Total Bilirubin 0.40 mg/dL (0.2-1.0) 03/26/20 05:30 AST 49 Units/L (15-37) H 03/26/20 05:30 ALT 37 Units/L (12-78) 03/26/20 05:30 Alkaline Phosphatase 251 Units/L (46-116) H 03/26/20 05:30 Creatine Kinase 57 Units/L (26-192) 03/12/20 16:10 CK-MB (CK-2) 1.6 ng/mL (0-4.0) 03/12/20 16:10 CK/CKMB % Calc 2.8 % (<4) 03/12/20 16:10 Troponin I 0.18 ng/mL (0-1.5) 03/12/20 16:10 C-Reactive Protein 9.70 mg/L (0-3.0) H 03/26/20 05:30 B-Natriuretic Peptide 86.2 pg/mL (0-79) H 03/26/20 05:30 Total Protein 6.6 g/dL (6.4-8.2) 03/26/20 05:30 Albumin 3.6 g/dL (3.4-5.0) 03/26/20 05:30 Globulin 3.0 g/dL (2.5-4.5) 03/26/20 05:30 Albumin/Globulin Ratio 1.2 Ratio (1.1-2.1) 03/26/20 05:30 Prealbumin 15.4 mg/dL (18-35.7) L 03/22/20 05:25 Triglycerides 332 mg/dL (0-150) H 03/26/20 05:30 Specimen Type Clean catch urine 03/12/20 09:45 Urine Color Yellow (YELLOW) 03/12/20 09:45 Urine Appearance Slightly hazy (CLEAR) 03/12/20 09:45 Urine pH 5.0 (5.0 - 8.0) 03/12/20 09:45 Ur Specific [place] 1.025 (1.000-1.030) 03/12/20 09:45 Urine Protein 4+ (NEGATIVE) 03/12/20 09:45 Urine Glucose (UA) Negative (NEGATIVE) 03/12/20 09:45 Urine Ketones Negative (NEGATIVE) 03/12/20 09:45 Urine Occult Blood 2+ (NEGATIVE) 03/12/20 09:45 Urine Nitrite Negative (NEGATIVE) 03/12/20 09:45 Urine Bilirubin Negative (NEGATIVE) 03/12/20 09:45 Urine Urobilinogen Normal (NORMAL) 03/12/20 09:45 Ur Leukocyte Esterase Negative (NEGATIVE) 03/12/20 09:45 Urine RBC 3-5 /HPF (0-3) A 03/12/20 09:45 Urine WBC 0-2 /HPF (0-5) 03/12/20 09:45 Ur Squamous Epith Cells Few /HPF (NEGATIVE) 03/12/20 09:45 Amorphous Sediment Trace /HPF (NEGATIVE) 01/11/21 09:45 Urine Bacteria Trace /HPF (NEGATIVE) 03/12/20 09:45 Hyaline Casts Few /LPF (NEGATIVE) 03/12/20 09:45 Ur Culture Indicated? No/not indicated 03/12/20 09:45 Theophylline 5.1 ug/mL (10-20) L 03/22/20 05:22 Acetone, Semi-Quant Negative (NEGATIVE) 03/24/20 17:15 SARS CoV-2 RNA Rapid FRANCISCO JAVIER Positive (NEGATIVE) A 03/12/20 10:23 Blood Type A POSITIVE 03/25/20 15:39 Antibody Screen Negative 03/23/20 11:04 Crossmatch See Detail 03/23/20 11:04 Tx React Symptoms Back pain,anxiety 03/25/20 15:39 - Plan (1) Pneumonia due to COVID-19 virus Status: Acute Plan: CONTINUE MECHANINCAL VENT, NS AT 100 ML/HR, TUBE FEEDINGS, IV ANTIBIOTICS, CONTINUE RESPIRATORY TREATMENTS, BLOOD GLUCOSE CONTROL, CORTICOSTEROIDS. HOLD LASIX (2) Hypoxia Status: Acute (3) Acute respiratory failure Status: Acute Qualifiers: Respiratory failure complication: hypoxia Qualified Code(s): J96.01 - Acute respiratory failure with hypoxia (4) Right arm pain Status: Acute (5) Anemia Status: Acute Qualifiers: Anemia type: iron deficiency Iron deficiency anemia type: unspecified iron deficiency Qualified Code(s): D50.9 - Iron deficiency anemia, unspecified Plan: CONTINUE TO MONITOR
[2020-03-26] MEDS: MELATONIN PO SCH (23:09)
[2020-03-27] MEDS: NS 1000 ML 1,000 ML IV SCH ×3 (01:29→15:00)
[2020-03-27] MEDS: [UNRECOGNIZED DRUG - OTHER] IV SCH ×6 (04:08)
[2020-03-27] MEDS: CLINIMIX IV SCH ×6 (04:08)
[2020-03-27] MEDS: MVI IV SCH ×6 (04:08)
[2020-03-27] MEDS: TPN ELECTROLYTES IV SCH ×6 (04:08)
[2020-03-27 05:06] LABS: ABG BASE EXCESS 0.1 mmol/L (-2.0-2.0); ABG HCO3 29.3 mmol/L (22-26)
[2020-03-27] MEDS: NEURONTIN CAP 300 MG PO SCH ×3 (05:50→22:26)
[2020-03-27 06:25] LABS: BASOPHILS % (AUTO) 0.2 % (0.2-1.0); EOSINOPHILS % (AUTO) 0.3 % (0.9-2.9); HEMATOCRIT 25.4 % (36.0-47.0); HEMOGLOBIN 8.6 g/dL (12.0-16.0); LYMPHOCYTES # (AUTO) 0.2 X10^3/uL (1.3-2.9); LYMPHOCYTES % (AUTO) 2.1 % (21.0-51.0); MEAN CORPUSCULAR HEMOGLOBIN 29.3 pg (27.0-34.0); MEAN CORPUSCULAR HGB CONC 33.8 g/dL (33.0-35.0); MEAN CORPUSCULAR VOLUME 86.9 fL (80.0-100.0); MEAN PLATELET VOLUME 8.7 fL (7.4-11.0); MONOCYTES # (AUTO) 0.2 x10^3/uL (0.3-0.8); MONOCYTES % (AUTO) 1.8 % (0.0-13.0); NEUTROPHILS # (AUTO) 8.8 x10^3/uL (2.2-4.8); NEUTROPHILS % (AUTO) 95.6 % (42.0-75.0); PLATELET COUNT 67 X10^3/uL (150.0-450.0); RED BLOOD COUNT 2.93 X10^6/uL (3.5-5.4); RED CELL DISTRIBUTION WIDTH 16.4 % (11.6-16.5); WHITE BLOOD COUNT 9.2 X10^3/uL (3.6-10.0)
[2020-03-27] MEDS: HumuLIN R SUBCUT PRN (06:42)
--- NOTE | 2020-03-27 07:11 | RAD ---
HISTORYSOBSTUDYCHEST, 1 VIEWCOMPARISONOne day prior.TECHNIQUEAP view of the chestFINDINGSET tube in good position. NG tube courses below the visualized field of view. Right subclavian central line is in good position. Patient is rotated.The cardiac and mediastinal contours appear stable. Mild improvement in diffuse bilateral airspace disease. No definite pleural effusion or pneumothorax.IMPRESSIONMild improvement in diffuse bilateral airspace disease.Electronically signed by: Petey Pedroza (Mar 27, 2020 07:09:57)
[2020-03-27 07:16] LABS: BAND NEUTROPHILS % 4 % (0-10); PLATELET MORPHOLOGY COMMENT NORMAL (NORMAL)
[2020-03-27] MEDS: ACCUNEB 1.25 MG NEBULE NEB SCH ×4 (08:00→20:20)
[2020-03-27] MEDS: PULMICORT NEB TX 0.5 MG NEB SCH ×2 (08:00→20:20)
[2020-03-27] MEDS: DIFLUCAN PO SCH (08:45)
[2020-03-27] MEDS: SYNTHROID 100 mcg TAB PO SCH (08:45)
[2020-03-27] MEDS: NYSTATIN POWDER TOP SCH ×2 (08:45→20:26)
[2020-03-27] MEDS: VITAMIN D3 125 mcg (5,000 UNITS) PO SCH (08:45)
[2020-03-27] MEDS: MILK OF MAGNESIA PO SCH ×4 (08:45→20:04)
[2020-03-27] MEDS: ROBITUSSIN DM PO SCH ×4 (08:45→20:22)
[2020-03-27] MEDS: LEVEMIR SC SCH ×2 (08:45→21:16)
[2020-03-27] MEDS: ZINC SULFATE PO SCH (08:45)
[2020-03-27] MEDS: ALBUMIN HUMAN 25%- 100 ML 100 ML IV SCH ×2 (08:45→20:00)
[2020-03-27] MEDS: ZyrTEC TAB 10 MG PO SCH (08:45)
[2020-03-27] MEDS: FORTAZ or TAZICEF VIAL INJ 1 G in NS 100 ML IV + SPIKE MINIBAG* 100 ML IV SCH ×2 (08:45→20:21)
[2020-03-27] MEDS: PROTONIX INJ 40 MG VIAL IVP SCH ×2 (08:45→20:24)
[2020-03-27] MEDS: COZAAR PO SCH (08:45)
[2020-03-27] MEDS: PEPCID 20 MG IV PREMIX IV SCH ×2 (08:45→20:23)
[2020-03-27] MEDS: KENALOG CREAM TOP SCH ×2 (08:45→20:12)
[2020-03-27] MEDS ORDERED: THEO-DUR TAB 300 MG 12-HR PO SCH (09:00)
[2020-03-27] MEDS: LOVENOX INJ 60 MG SYR SC SCH ×2 (11:11→21:02)
[2020-03-27] MEDS: CATAPRES-TTS-2 TD SCH (11:11)
[2020-03-27] MEDS: NORCURON INJ 10 MG VIAL 50 MG in NS 50 ML IV 50 ML IV PRN (11:32)
[2020-03-27] MEDS: VERSED IV PREMIX 100 MG/100 ML IV.SOLN IV PRN (11:33)
--- NOTE | 2020-03-27 12:24 | RAD ---
HISTORYCONSTIPATIONSTUDYKUB, x-ray abdomen one viewCOMPARISONX-ray 03/26/2020FINDINGSVascular stents are seen in the iliac regions. Enteric tube passes into the distal body of the stomach. Mild small and large bowel air is seen without suggestion of bowel obstruction. No constipation is seen. Visualized portions of the lungs revealed bilateral infiltrates.IMPRESSIONNo evidence of constipation or bowel obstruction.Electronically signed by: Tanvir Fuentes (Mar 27, 2020 12:21:08)
--- NOTE | 2020-03-27 13:42 | PCM.PROG ---
Progress Note - Progress Note for Day of Date of Exam: 03/27/20 - Subjective Subjective: IS BEING TREATED FOR PNEUMONIA DUE TO COVID-19 AND HYPOXIA. SHE HAS A PMH OF DIABETES, DYSLIPIDEMIA, AND HTN. SHE REMAINS ON THE MECHANICAL VENT THIS MORNING. HER SETTINGS THIS MORNING ARE: A/C, VENT RATE 30, TIDAL VOLUME 475, PEAK FLOW 50, PEEP 10, FI02 100. ON EXAMINATION, HEART IS REGULAR IN RATE AND RHYTHM. BILATERAL LUNGS CONTINUE WITH RALES THROUGHOUT. ABDOMEN IS ROUND, SOFT, AND NON-TENDER WITH NORMAL BOWEL SOUNDS NOTED THROUGHOUT. RIGHT UPPER ARM IS NOTED WITH BRUISING AND SWELLING. BRUISING EXTENDS FROM THE AXILLA TO THE ELBOW. THERE IS 1+ PITTING EDEMA NOTED TO LOWER EXTREMITIES. HER VITALS THIS MORNING ARE: 97.6-84-30-100%-145/61. LABS WERE OBTAINED. ABNORMAL LAB VA LUES INCLUDE THE FOLLOWING: RBC 2.93, HGB 8.6, HCT 25.4, PLT COUNT 67, D-DIMER 2.04, CRP 72.30, BNP 80.6. BLOOD GLUCOSE LEVELS REMAIN ELEVATED, BUT HAVE IMPROVED SLIGHTLY SINCE YESTERDAY. CHEST XRAY WAS OBTAINED AND REVEALED: ET tube in good position. NG tube courses below the visualized field of view. Right subclavian central line is in good position. Patient is rotated.The cardiac and mediastinal contours appear stable. Mild improvement in diffuse bilateral airspace disease. No definite pleural effusion or pneumothorax. SHE HAS RECEIVED A TOTAL OF FOUR UNITS OF PRBC SINCE YESTERDAY. SHE HAS NOT HAD A BOWEL MOVEMENT IN SEVERAL DAYS. WE WILL OBTAIN A KUB TODAY. WE WILL ALSO START GLUCERNA F EEDINGS THROUGH THE TUBE TID. OTHERWISE, WE WILL CONTINUE WITH CURRENT PLAN OF CARE TODAY. TIME SPENT ON CLINICAL ASSESSMENT, REVIEWING LABS AND IMAGING, DECISION MAKING, AND DOCUMENTATION GREATER THAN 75 MINUTES. - Past Medical Family Social History Past Med/Fam/Surg Hx: No changes since H&P Allergies: Allergies No Known Drug Allergies Allergy (Verified 03/12/20 09:37) - Review of Systems ROS: No change since H&P - Vital Signs and I&O's Vital Signs: Temperature 97.6 F Pulse Rate [Left Brachial] 85 Pulse Rate [Apical] 81 Pulse Rate 83 Respiratory Rate 33 Blood Pressure [Left Calf] 136/63 Blood Pressure [Left Arm] 190/80 Blood Pressure [Right Arm] 171/77 Blood Pressure 189/87 O2 Sat by Pulse Oximetry 100 Intake and Output: Intake & Output 03/25/20 03/26/20 03/27/20 03/28/20 11:59 11:59 11:59 11:59 Intake Total 2210 / 2210 2420 / 2420 4737 / 4737 Output Total 3225 / 3225 2625 / 2625 1250 / 1250 Balance -1015 / -1015 -205 / -205 3487 / 3487 - Physical Exam Oriented: Unable to test Eyes: Normal Ear: Normal Nose: Normal Throat: Normal Respiratory: Diminished, Rales Cardiovascular: Normal : Normal Auscultation: Bowel Sounds: Normal Palpation: Normal Tenderness: Normal Skin: Normal Musculoskeletal: Normal Psychiatric: Normal Mood Description: Flat Affect: Normal Speech Pattern: Artificially Ventilated - Laboratory and Diagnostics Result Diagrams: 03/28/20 12:40 03/28/20 05:22 Labs: 03/12/20 16:17 Blood Blood Culture - Final 03/12/20 16:10 Blood Blood Culture - Final Laboratory WBC 9.2 X10^3/uL (3.6-10.0) D 03/27/20 05:27 RBC 2.93 X10^6/uL (3.5-5.4) L 03/27/20 05:27 Hgb 8.6 g/dL (12.0-16.0) L 03/27/20 05:27 Hct 25.4 % (36.0-47.0) L 03/27/20 05:27 MCV 86.9 fL (80.0-100.0) 03/27/20 05:27 MCH 29.3 pg (27.0-34.0) 03/27/20 05:27 MCHC 33.8 g/dL (33.0-35.0) 03/27/20 05:27 RDW 16.4 % (11.6-16.5) 03/27/20 05:27 Plt Count 67 X10^3/uL (150.0-450.0) L 03/27/20 05:27 Plt Count Comment Decreased (ADEQUATE) A 03/27/20 05:27 MPV 8.7 fL (7.4-11.0) 03/27/20 05:27 Neut % (Auto) 95.6 % (42.0-75.0) H 03/27/20 05:27 Lymph % (Auto) 2.1 % (21.0-51.0) L 03/27/20 05:27 [place] % (Auto) 1.8 % (0.0-13.0) 03/27/20 05:27 Eos % (Auto) 0.3 % (0.9-2.9) L 03/27/20 05:27 Baso % (Auto) 0.2 % (0.2-1.0) 03/27/20 05:27 Neut # (Auto) 8.8 x10^3/uL (2.2-4.8) H 03/27/20 05:27 Lymph # (Auto) 0.2 X10^3/uL (1.3-2.9) L 03/27/20 05:27 [place] # (Auto) 0.2 x10^3/uL (0.3-0.8) L 03/27/20 05:27 Eos # (Auto) 0.0 x10^3/uL (0.0-0.2) 03/27/20 05:27 Baso # (Auto) 0.0 X10^3/uL (0.0-0.1) 03/27/20 05:27 Absolute Nucleated RBC 0.4 /100WBC 03/27/20 05:27 Total Counted 100 03/27/20 05:27 Neutrophils % (Manual) 90 % (39-76) H 03/27/20 05:27 Band Neutrophils % 4 % (0-10) 03/27/20 05:27 Lymphocytes % (Manual) 5 % (13-43) L 03/27/20 05:27 Monocytes % (Manual) 2 % (4-9) L 03/26/20 05:30 Eosinophils % (Manual) 1 % (0-6) 03/27/20 05:27 Metamyelocytes % 1 03/24/20 06:00 Nucleated RBCs 1 03/27/20 05:27 Plt Morphology Comment Normal (NORMAL) 03/27/20 05:27 RBC Morphology Normal (NORMAL) 03/27/20 05:27 ESR 89 MM/HOUR (0-20) H 03/12/20 09:45 PT 12.5 SECONDS (11.8-14.3) 03/12/20 09:45 INR Target Range - 03/12/20 09:45 INR 0.96 (0.8-1.3) 03/12/20 09:45 APTT 27.8 SECONDS (22.9-36.5) 03/12/20 09:45 PTT Comment - 03/12/20 09:45 D-Dimer 2.04 ug/ml (0.0-0.57) H* 03/27/20 05:27 Sample Site Lr 03/27/20 05:00 ABG pH 7.230 (7.35-7.45) L 03/27/20 05:00 ABG pCO2 70.0 mmHg (35.0-45.0) H* 03/27/20 05:00 ABG pO2 58.0 mmHg (80.0-100.0) L 03/27/20 05:00 ABG HCO3 29.3 mmol/L (22-26) H 03/27/20 05:00 ABG O2 Saturation 84.0 % (90-100) L* 03/27/20 05:00 ABG Base Excess 0.1 mmol/L (-2.0-2.0) 03/27/20 05:00 Red Test Na 03/27/20 05:00 A-a Gradient 389.0 mmHg 03/27/20 05:00 FiO2 75.0 03/27/20 05:00 Blood Gas Comments David sierra, cole 03/27/20 05:00 Sodium 138 mmol/L (136-145) 03/26/20 05:30 Corrected Sodium 144 mmol/L (136-145) 03/26/20 05:30 Potassium 4.0 mmol/L (3.5-5.1) 03/26/20 05:30 Chloride 101 mmol/L (98-107) 03/26/20 05:30 Carbon Dioxide 25.7 mmol/L (21-32) 03/26/20 05:30 BUN 66 mg/dL (7-18) H 03/26/20 05:30 Creatinine 1.66 mg/dL (0.55-1.02) H 03/26/20 05:30 Est GFR (MDRD) Af Amer 40 (>60) L 03/26/20 05:30 Est GFR (MDRD) Non-Af 33 (>60) L 03/26/20 05:30 Glucose 396 mg/dL (65-99) H 03/26/20 21:30 POC Glucose (mg/dL) 273 mg/dL (65-99) H 03/27/20 11:45 Lactic Acid 7.9 mmol/L (0.4-2.0) H 03/12/20 09:45 Calcium 8.8 mg/dL (8.5-10.1) 03/26/20 05:30 Corrected Calcium TNP 03/26/20 05:30 Phosphorus 2.4 mg/dL (2.6-4.7) L 03/26/20 05:30 Magnesium 2.1 mg/dL (1.7-2.9) 03/26/20 05:30 Ferritin 90 ng/mL (8-252) 03/27/20 05:27 Total Bilirubin 0.40 mg/dL (0.2-1.0) 03/26/20 05:30 AST 49 Units/L (15-37) H 03/26/20 05:30 ALT 37 Units/L (12-78) 03/26/20 05:30 Alkaline Phosphatase 251 Units/L (46-116) H 03/26/20 05:30 Creatine Kinase 57 Units/L (26-192) 03/12/20 16:10 CK-MB (CK-2) 1.6 ng/mL (0-4.0) 03/12/20 16:10 CK/CKMB % Calc 2.8 % (<4) 03/12/20 16:10 Troponin I 0.18 ng/mL (0-1.5) 03/12/20 16:10 C-Reactive Protein 72.30 mg/L (0-3.0) H 03/27/20 05:27 B-Natriuretic Peptide 80.6 pg/mL (0-79) H 03/27/20 05:27 Total Protein 6.6 g/dL (6.4-8.2) 03/26/20 05:30 Albumin 3.6 g/dL (3.4-5.0) 03/26/20 05:30 Globulin 3.0 g/dL (2.5-4.5) 03/26/20 05:30 Albumin/Globulin Ratio 1.2 Ratio (1.1-2.1) 03/26/20 05:30 Prealbumin 15.4 mg/dL (18-35.7) L 03/22/20 05:25 Triglycerides 332 mg/dL (0-150) H 03/26/20 05:30 Specimen Type Clean catch urine 03/12/20 09:45 Urine Color Yellow (YELLOW) 03/12/20 09:45 Urine Appearance Slightly hazy (CLEAR) 03/12/20 09:45 Urine pH 5.0 (5.0 - 8.0) 03/12/20 09:45 Ur Specific [place] 1.025 (1.000-1.030) 03/12/20 09:45 Urine Protein 4+ (NEGATIVE) 03/12/20 09:45 Urine Glucose (UA) Negative (NEGATIVE) 03/12/20 09:45 Urine Ketones Negative (NEGATIVE) 03/12/20 09:45 Urine Occult Blood 2+ (NEGATIVE) 03/12/20 09:45 Urine Nitrite Negative (NEGATIVE) 03/12/20 09:45 Urine Bilirubin Negative (NEGATIVE) 03/12/20 09:45 Urine Urobilinogen Normal (NORMAL) 03/12/20 09:45 Ur Leukocyte Esterase Negative (NEGATIVE) 03/12/20 09:45 Urine RBC 3-5 /HPF (0-3) A 03/12/20 09:45 Urine WBC 0-2 /HPF (0-5) 03/12/20 09:45 Ur Squamous Epith Cells Few /HPF (NEGATIVE) 03/12/20 09:45 Amorphous Sediment Trace /HPF (NEGATIVE) 03/12/20 09:45 Urine Bacteria Trace /HPF (NEGATIVE) 03/12/20 09:45 Hyaline Casts Few /LPF (NEGATIVE) 03/12/20 09:45 Ur Culture Indicated? No/not indicated 03/12/20 09:45 Theophylline 5.1 ug/mL (10-20) L 03/22/20 05:22 Acetone, Semi-Quant Negative (NEGATIVE) 03/24/20 17:15 SARS CoV-2 RNA Rapid FRANCISCO JAVIER Positive (NEGATIVE) A 03/12/20 10:23 Blood Type A POSITIVE 03/25/20 15:39 Antibody Screen Negative 03/23/20 11:04 Crossmatch See Detail 03/23/20 11:04 Tx React Prelim Eval Add. study pending 03/25/20 15:39 Tx React Symptoms Back pain,anxiety 03/25/20 15:39 Reaction Path Interpret Neg for tfu reaction 03/25/20 15:[address] flori samuel 03/25/20 15:39 Blood Bank Comment Livier vanessa P2 03/25/20 15:39 - Plan (1) Pneumonia due to COVID-19 virus Status: Acute Plan: CONTINUE MECHANINCAL VENT, NS AT 100 ML/HR, TUBE FEEDINGS, IV ANTIBIOTICS, CONTINUE RESPIRATORY TREATMENTS, BLOOD GLUCOSE CONTROL, CORTICOSTEROIDS. HOLD LASIX (2) Hypoxia Status: Acute (3) Acute respiratory failure Status: Acute Qualifiers: Respiratory failure complication: hypoxia Qualified Code(s): J96.01 - Acute respiratory failure with hypoxia (4) Right arm pain Status: Acute Plan: OBTAIN XRAY (5) Anemia Status: Acute Qualifiers: Anemia type: iron deficiency Iron deficiency anemia type: unspecified iron deficiency Qualified Code(s): D50.9 - Iron deficiency anemia, unspecified Plan: CONTINUE TO MONITOR
[2020-03-27] MEDS ORDERED: [UNRECOGNIZED DRUG - OTHER] IV SCH ×23 (14:00→15:00)
[2020-03-27] MEDS: [UNRECOGNIZED DRUG - OTHER] PO SCH ×4 (14:00→22:52)
[2020-03-27] MEDS ORDERED: ASCORBIC ACID MULTI IV SCH ×23 (14:00→15:00)
[2020-03-27] MEDS ORDERED: CLINIMIX IV SCH ×23 (14:00→15:00)
[2020-03-27] MEDS: COLACE SYRUP 100 MG UDC PO SCH (20:03)
[2020-03-27] MEDS: LIPITOR TAB 80 MG PO SCH (20:08)
[2020-03-27] MEDS: ZOLOFT PO SCH (20:09)
[2020-03-27] MEDS: SINGULAIR TAB 10 MG PO SCH (20:09)
[2020-03-27] MEDS: LACRI-LUBE S.O.P. AFFEYE SCH (20:25)
[2020-03-27] MEDS ORDERED: LIPOSYN III 20% 100ML 100 ML IV ONE (22:38)
[2020-03-27] MEDS: LIPOSYN III 20% 100ML 100 ML IV SCH (22:57)
[2020-03-27] MEDS: MELATONIN PO SCH (23:43)
[2020-03-28 03:48] LABS: ABG BASE EXCESS 0.9 mmol/L (-2.0-2.0); ABG HCO3 28.2 mmol/L (22-26)
[2020-03-28 03:49] LABS: ABG ALLEN TEST POS
[2020-03-28] MEDS: NEURONTIN CAP 300 MG PO SCH (05:15)
[2020-03-28] MEDS: NS 1000 ML 1,000 ML IV SCH ×2 (06:10→09:56)
--- NOTE | 2020-03-28 06:18 | RAD ---
HISTORYSOBSTUDYCHEST, 1 VIEWCOMPARISONOne day prior.TECHNIQUEAP view of the chestFINDINGSET tube in good position. Right subclavian central line is in good position. NG tube courses below the visualized field of view.The cardiac and mediastinal contours appear stable. No significant change in bilateral airspace and interstitial opacities. Left costophrenic sulcus is not within the field of view. No definite pleural effusion or pneumothorax. Soft tissue attenuation limits evaluation.IMPRESSIONNo significant change.Electronically signed by: Petey Pedroza (Mar 28, 2020 06:17:01)
[2020-03-28] MEDS: HumuLIN R SUBCUT PRN ×3 (06:19→18:39)
[2020-03-28 06:45] LABS: BASOPHILS # (AUTO) 0.1 X10^3/uL (0.0-0.1); BASOPHILS % (AUTO) 0.4 % (0.2-1.0); EOSINOPHILS # (AUTO) 0.1 x10^3/uL (0.0-0.2); EOSINOPHILS % (AUTO) 0.6 % (0.9-2.9); HEMOGLOBIN 7.6 g/dL (12.0-16.0); LYMPHOCYTES # (AUTO) 0.3 X10^3/uL (1.3-2.9); LYMPHOCYTES % (AUTO) 2.5 % (21.0-51.0); MEAN CORPUSCULAR HEMOGLOBIN 29.2 pg (27.0-34.0); MEAN CORPUSCULAR VOLUME 88.6 fL (80.0-100.0); MEAN PLATELET VOLUME 9.3 fL (7.4-11.0); MONOCYTES # (AUTO) 0.3 x10^3/uL (0.3-0.8); MONOCYTES % (AUTO) 2.7 % (0.0-13.0); NEUTROPHILS % (AUTO) 93.8 % (42.0-75.0); PLATELET COUNT 70 X10^3/uL (150.0-450.0); RED CELL DISTRIBUTION WIDTH 16.7 % (11.6-16.5); WHITE BLOOD COUNT 12.8 X10^3/uL (3.6-10.0)
[2020-03-28 07:00] LABS: PREALBUMIN 11.4 mg/dL (18-35.7)
[2020-03-28 07:02] LABS: ALBUMIN 2.4 g/dL (3.4-5.0); CALCIUM 8.4 mg/dL (8.5-10.1); CARBON DIOXIDE 26.1 mmol/L (21-32); COR CA(FOR HYPOALB) 9.7 mg/dL (8.5-10.1); TOTAL PROTEIN 5.3 g/dL (6.4-8.2)
[2020-03-28 07:41] LABS: BAND NEUTROPHILS % 1 % (0-10)
[2020-03-28 07:42] LABS: ANISOCYTOSIS SLIGHT; HYPOCHROMASIA 1+; PLATELET MORPHOLOGY COMMENT NORMAL (NORMAL)
[2020-03-28] MEDS ORDERED: PEPCID 20 MG IV PREMIX IV SCH (09:00)
[2020-03-28] MEDS: LEVEMIR SC SCH (09:55)
[2020-03-28] MEDS: DIFLUCAN PO SCH (10:36)
[2020-03-28] MEDS: ALBUMIN HUMAN 25%- 100 ML 100 ML IV SCH (10:36)
[2020-03-28] MEDS: LACRI-LUBE S.O.P. AFFEYE SCH (10:37)
[2020-03-28] MEDS: COZAAR PO SCH (10:37)
[2020-03-28] MEDS: [UNRECOGNIZED DRUG - OTHER] PO SCH ×2 (10:37→15:45)
[2020-03-28] MEDS: KENALOG CREAM TOP SCH (10:37)
[2020-03-28] MEDS: MILK OF MAGNESIA PO SCH ×2 (10:37→15:45)
[2020-03-28] MEDS: PROTONIX INJ 40 MG VIAL IVP SCH (10:38)
[2020-03-28] MEDS: SYNTHROID 100 mcg TAB PO SCH (10:38)
[2020-03-28] MEDS: ROBITUSSIN DM PO SCH ×2 (10:38→15:45)
[2020-03-28] MEDS: NYSTATIN POWDER TOP SCH (10:38)
[2020-03-28] MEDS: ZINC SULFATE PO SCH (10:39)
[2020-03-28] MEDS: VITAMIN D3 125 mcg (5,000 UNITS) PO SCH (10:39)
[2020-03-28] MEDS ORDERED: NS 1000 ML 1,000 ML IV ONE ×2 (10:51)
[2020-03-28] MEDS: FORTAZ or TAZICEF VIAL INJ 1 G in NS 100 ML IV + SPIKE MINIBAG* 100 ML IV SCH (11:36)
[2020-03-28] MEDS: PULMICORT NEB TX 0.5 MG NEB SCH (11:52)
[2020-03-28] MEDS: ACCUNEB 1.25 MG NEBULE NEB SCH ×3 (11:52→16:55)
[2020-03-28 12:50] LABS: HEMATOCRIT 21.8 % (36.0-47.0); HEMOGLOBIN 7.2 g/dL (12.0-16.0)
--- NOTE | 2020-03-28 15:33 | VAS ---
HISTORYSEVERE RT ARM PAIN and swellingSTUDYDuplex venous ultrasound of the right upper extremityCOMPARISONNoneTECHNIQUEMultiple torres scale and color flow Doppler images of the deep venous system were obtained of the right upper extremity.FINDINGSThe deep venous system of the right upper extremity was evaluated from the level of the IJV to the radial and ulnar veins. There is partially occlusive DVT seen in the right brachial vein. No DVT is seen in the right jugular, subclavian, axillary, radial, or ulnar veins. Brachial vein in the forearm appears to be clear of DVT.IMPRESSIONPartially occlusive DVT in the region of the brachial vein in the arm and elbow, with sparing of the brachial vein in the forearm.Electronically signed by: Tanvir Fuentes (Mar 28, 2020 15:30:59)
[2020-03-28] MEDS ORDERED: NS 500 ML IV 500 ML IV PRN (15:42)
[2020-03-28] MEDS ORDERED: LOVENOX INJ 150 MG SYR SC SCH (16:00)
[2020-03-28 18:32] VITALS: BP 149/67
--- NOTE | 2020-03-28 21:12 | DR.UPDATE ---
H&P Update History and Physical Update: History and Physical reviewed and patient examined. Changes noted: NO Yes with the following:will polace art line for frequent smpling, bp monitoring H&P Reviewed: Yes Patient was examined?: Yes Procedures (ALL) - Abscess I/D Consent obtained: written consent (typo, error syaun) - Arterial Line Consent obtained: written consent Time out performed: Yes Size(gauge): 20 Technique used: guided wire technique (ultrasound assist) Post-procedure: dry sterile dressing placed Patient tolerated procedure: Yes Site: Left, radial
== END 2020-03-28 18:10 | disposition short-term general hospital (02) | DRG 177 ==
LOC: ER 09:18 → OBS 13:00 → MED/SURG 03-14 12:00 → ICU 03-28 09:49
PROVIDERS: ADMIT Internal Medicine; ATTEND Internal Medicine
PROC: CLINEPL (2020-03-23 14:05)
DX: I87.2 Venous insufficiency (chronic) (peripheral); E78.5 Hyperlipidemia, unspecified; J96.01 Acute respiratory failure with hypoxia; R60.9 Edema, unspecified; R26.9 Unspecified abnormalities of gait and mobility; E66.01 Morbid (severe) obesity due to excess calories; E11.9 Type 2 diabetes mellitus without complications; U07.1 COVID-19; I10 Essential (primary) hypertension; D50.9 Iron deficiency anemia, unspecified; M79.601 Pain in right arm; J12.81 Pneumonia due to SARS-associated coronavirus